=== PATIENT | male | born 1945 | race Caucasian/White ===

== ENCOUNTER 2022-08-25 04:45 | Emergency (ER) | payer OTHER, SELFPAY ==
--- NOTE | 2022-08-25 04:48 | ED_ITS ---
HPI - General Adult General Time Seen by Provider: 04:48 Date Seen: 08/25/22 Chief complaint: Shortness of Breath/Dyspnea Stated complaint: difficulty breathing Time Seen by Provider: 08/25/22 04:47 Source: patient, RN notes reviewed and old records reviewed Mode of arrival: ambulatory Limitations: no limitations History of Present Illness HPI narrative: 76-year-old male who comes in with shortness of breath. Patient has a history of COPD as well as sleep apnea, hypertension, chronic kidney disease. He has a couple months include increased shortness of breath, increased nocturnal dyspnea over the last week or so. Nonproductive cough. No chest pain, no lower extremity swelling, no nausea vomiting, no fevers. Use nebulizer treatments at home. Last summer saw international trade analyst and reports that he was on a ?steroid inhaler which he found help quite a bit but that has not been refilled, also was on prednisone last fall. Related Data Home Medications Medication Instructions Recorded Confirmed aspirin 81 mg tablet,delayed 81 mg PO QDAY 01/13/22 07/15/22 release (Adult Aspirin Regimen) nitroglycerin 0.4 mg sublingual 0.4 mg sublingual Q5M PRN 01/13/22 07/15/22 tablet Previous Rx's Medication Instructions Recorded albuterol sulfate 2.5 mg/3 mL 2.5 mg (3 mL) inhalation Q4H PRN 07/15/22 (0.083 %) solution for nebulization shortness of breath or wheezing #180 mL albuterol sulfate 90 mcg/actuation 2 puff inhalation Q4-6H PRN 07/15/22 aerosol inhaler shortness of breath or wheezing #8.5 grams fluticasone furoate 100 1 inh inhalation DAILY #180 ea 07/15/22 mcg-vilanterol 25 mcg/dose inhalation powder lisinopril 40 mg tablet 40 mg PO DAILY #90 tabs 07/15/22 metoprolol succinate 25 mg 25 mg PO DAILY #90 tabs 07/15/22 tablet,extended release 24 hr simvastatin 40 mg tablet 40 mg PO .Bedtime #90 tabs 07/15/22 terazosin 10 mg capsule 10 mg PO .Bedtime #90 caps 07/15/22 tiotropium bromide 2.5 2 inh inhalation QDAY #12 grams 07/15/22 mcg/actuation mist for inhalation (Spiriva Respimat) fluticasone furoate 100 1 inh inhalation DAILY #60 ea 08/25/22 mcg-vilanterol 25 mcg/dose inhalation powder prednisone 10 mg tablets in a dose See Rx Instructions PO .COMPLEX 08/25/22 pack #21 ea Allergies Allergy/AdvReac Type Severity Reaction Status Date / Time bee venom protein (honey bee) Allergy Mild Anaphylaxis Verified 07/15/22 07:20 atorvastatin Allergy Unknown Verified 07/15/22 07:20 novacaine Allergy Mild Nausea Uncoded 07/15/22 07:20 [facility] Medical History (Updated 08/25/22 @ 06:25 by Marcial Aguayo MD) Cardiomyopathy ?I42.9 - Cardiomyopathy, unspecified (ICD-10) Surgical History (Updated 01/11/22 @ 16:26 by Fracisco Montoya) History of tonsillectomy ?Z90.89 - Acquired absence of other organs (ICD-10) Social History Smoking Status: Former smoker Do you use any of these nicotine containing products: None Second hand tobacco smoke exposure: No How often do you have a drink containing alcohol: never AUDIT-C Alcohol total score: 0 Non-prescribed substance use: denies use Little interest or pleasure in doing things: several days Feeling down, depressed, or hopeless: several days service: No Exam Narrative: Exam Narrative: General: Well-developed and well-nourished, no acute distress Head: Atraumatic and normocephalic Eyes: Pupils are equal reactive, extraocular motions intact, conjunctiva clear ENT: External nose and ears are normal, posterior pharynx without erythema or exudate Neck: No midline cervical tenderness, full spontaneous range of motion the neck, trachea midline, no adenopathy Heart: Regular rate and rhythm no murmurs or thrills Lungs: Increased work of breathing with sensory muscle use, breathless after speaking about a sentence, inspiratory expiratory wheezes bilaterally Abdomen: Soft, nontender, nondistended with active bowel sounds Musculoskeletal: No tenderness, deformity, or edema Neurologic: Awake, alert, and oriented x3, no gross focal neurologic deficits, cranial nerves intact as tested Psych: Mood and affect are appropriate Skin: No rashes Const: Vital Signs, click to edit/add: Vital Signs - 24 hr 08/25/22 04:58 08/25/22 05:27 08/25/22 06:10 Temperature 97.8 F Pulse Rate [Femora l] 92 Pulse Rate [Pulse Oximeter] 84 75 Respiratory Rate 22 22 20 Blood Pressure [Ri ght Upper Arm] 180/111 H 173/86 H 158/88 H Pulse Oximetry 95 94 94 Oxygen Delivery Me thod Room Air Room Air Room Air Course Course Hospital Course: Patient seen examined, prior records reviewed. Patient with history of COPD usually on inhaled steroids but has been off these for quite a while, comes in with several months of increased shortness of breath. On exam here, no hypoxia, some increased work of breathing, inspiratory and expiratory wheezes. No chest pain, no lower extremity swelling. Patient does describe some nocturnal dyspnea but this does not seem to be too orthopnea, however BNP is ordered. EKG is reassuring. Nebulizer treatment and Decadron ordered. Reevaluation(s) Time of Reevaluation #1: 06:18 Reevaluation #1: Labs independently interpreted by me with reassuring venous blood gas, no hypercapnia. CBC with no leukocytosis but does have slight eosinophilia, basic panel reassuring, BNP is normal, troponin negative. Chest x-ray independently interpreted by me demonstrates some streaky perihilar densities on the right but no pneumothorax or acute infiltrate. Patient is stable for discharge with continued nebulizer treatments and will be started on prednisone burst and taper. Will also refill patient's fluticasone inhaler. Time of Reevaluation #2: 06:37 Reevaluation #2: Piece int looks significantly better after treatment in the emergency department, speaking in full sentences although still with mild increased work of breathing but he says that is usual for him. Stable for discharge Vital Signs Vital signs: Initial Vital Signs Pulse Rate 92 08/25/22 04:58 Pulse Rhythm Regular 08/25/22 04:58 Respiratory Rate 22 08/25/22 04:58 Blood Pressure 180/111 H 08/25/22 04:58 Blood Pressure Mean 134 H 08/25/22 04:58 Blood Pressure Position Sitting 08/25/22 04:58 Pulse Oximetry 95 08/25/22 04:58 Oxygen Delivery Method Room Air 08/25/22 04:58 Vital Signs Pulse Rate 92 08/25/22 04:58 Respiratory Rate 22 08/25/22 04:58 Blood Pressure 180/111 H 08/25/22 04:58 Pulse Oximetry 95 08/25/22 04:58 Oxygen Delivery Method Room Air 08/25/22 04:58 Temperature 97.8 F 08/25/22 05:27 Pulse Rate 75 08/25/22 06:10 Respiratory Rate 20 08/25/22 06:10 Blood Pressure 158/88 H 08/25/22 06:10 Pulse Oximetry 94 08/25/22 06:10 Oxygen Delivery Method Room Air 08/25/22 06:10 Medical Decision Making Lab Data Labs: Lab Results 08/25/22 08/25/22 Range/Units 05:26 05:30 WBC 9.23 (4.50-11.00) K/uL RBC 4.60 (4.30-5.90) m/uL Hgb 14.0 (13.5-17.5) gm/dL Hct 42.4 (37.0-53.0) % MCV 92 (80-100) fL MCH 30 (26-34) pg MCHC 33 (32-36) gm/dL RDW Coeff of Kevin 13.7 (11.5-15.5) % Plt Count 270 (140-440) K/uL Neut % (Auto) 64.8 (42.0-72.0) % Lymph % (Auto) 16.1 L (20-44) % [place] % (Auto) 8.9 (0.0-11.0) % Eos % (Auto) 9.4 H (0.0-7.0) % Baso % (Auto) 0.7 (0.0-3.0) % Neut # (Auto) 5.98 (1.7-7.0) K/uL Lymph # (Auto) 1.50 (0.90-2.90) K/uL [place] # (Auto) 0.80 (0.00-0.90) K/UL Eos # (Auto) 0.90 H (0.00-0.50) K/uL Baso # (Auto) 0.06 (0.00-0.30) K/uL VBG pH 7.366 (7.32-7.43) VBG pCO2 46 (40-50) mmHG VBG pO2 38.4 (25-47) mmHG VBG HCO3 27 (21-28) mmol/L Sodium 139 (135-149) mmol/L Potassium 4.4 (3.6-5.1) mmol/L Chloride 107 (96-114) mmol/L Carbon Dioxide 25 (20-32) mmol/L BUN 16 (7-30) mg/dL Creatinine 1.1 (0.5-1.5) mg/dL Estimated Creat Clear 60.48 Estimated GFR 70 ml/min Glucose 102 (60-115) mg/dL Calcium 9.0 (8.4-10.6) mg/dL Magnesium 1.9 (1.5-2.6) mg/dL NT-Pro-B Natriuret Pep 411 pg/mL POC Troponin I 0.01 (0.01-0.04) ng/ml ECG Data Attestation: I personally reviewed and interpreted this ECG as follows: Prior ECG tracings: not available for review Interpretation: Performed at 5:07 p.m. independently interpreted by me demonstrates sinus rhythm with PACs, no acute ST elevations or depressions, normal intervals, normal axis, QTC 444, ID [id number]. No prior for comparison. Discharge Plan Discharge Clinical Impression: Acute exacerbation of chronic obstructive pulmonary disease Patient Disposition: Home, Self-Care Condition: Stable Instructions: COPD (Chronic Obstructive Pulmonary Disease) (ED) Additional Instructions: Take prednisone burst and taper as prescribed Use albuterol inhaler or nebulizer treatment every 2 hours while awake for 24 hours, then every 3 hours while awake for 24 hours, then every 4 hours as needed Restart your fluticasone inhaler if you are not already taking it Follow-up with primary care doctor in 1-2 days and with your international trade analyst as soon as possible Activity Level: Activity as Tolerated Discharge Diet: Regular Prescriptions: New prednisone 10 mg tablets,dose pack See Rx Instructions .ROUTE .COMPLEX Qty: 21 0RF Rx Instructions: Take 40 mg daily for 3 days, then 20 mg daily for 3 days, then 10 mg daily for 3 days, then 5 mg daily for 2 days fluticasone furoate-vilanterol 100-25 mcg/dose blister with device 1 inh inhalation DAILY Qty: 60 0RF No Action aspirin [Adult Aspirin Regimen] 81 mg tablet,delayed release (DR/EC) 81 mg PO QDAY nitroglycerin 0.4 mg tablet, sublingual 0.4 mg sublingual Q5M PRN Rx Instructions: PRN CHEST PAIN albuterol sulfate 90 mcg/actuation HFA aerosol inhaler 2 puff inhalation Q4-6H PRN (Reason: shortness of breath or wheezing) Qty: 8.5 12RF albuterol sulfate 2.5 mg /3 mL (0.083 %) solution for nebulization 2.5 mg inhalation Q4H PRN (Reason: shortness of breath or wheezing) Qty: 180 12RF Spiriva Respimat 2.5 mcg/actuation mist 2 inh inhalation QDAY Qty: 12 4RF fluticasone furoate-vilanterol 100-25 mcg/dose blister with device 1 inh inhalation DAILY Qty: 180 4RF lisinopril 40 mg tablet 40 mg PO DAILY Qty: 90 3RF metoprolol succinate 25 mg tablet extended release 24 hr 25 mg PO DAILY Qty: 90 3RF simvastatin 40 mg tablet 40 mg PO .Bedtime Qty: 90 3RF terazosin 10 mg capsule 10 mg PO .Bedtime Qty: 90 3RF Follow Up/Referrals: Enmanuel Zamora MD [Primary Care Provider] - Stand Alone Forms: [facility] Info Instructions
[2022-08-25 04:58] VITALS: BP 180/111; PULSE 92; RESP 22; O2SAT 95; BMI 21.7
--- NOTE | 2022-08-25 05:07 | CRLHL7_ITS ---
For Patients: As a result of the Cures Act, medical imaging exams and procedure reports are released immediately into your electronic medical record. You may view this report before your referring provider. If you have questions, please contact your health care provider. INDICATION: Dyspnea TECHNIQUE: Chest 1 views. COMPARISON: December 10, 2020 FINDINGS: Cardiovascular and mediastinum: Heart size and vasculature are normal in caliber and appearance. Lungs and pleural spaces: The lungs are hyperinflated with increased interstitial lung markings which may represent nonspecific infectious/inflammatory process or interstitial edema on a background of COPD. No sign of pleural effusion. No pneumothorax. Bones and soft tissues: No significant findings. IMPRESSION: The lungs are hyperinflated with increased interstitial lung markings which may represent nonspecific infectious/inflammatory process or interstitial edema on a background of COPD. Dictated by Fox Trujillo MD @ 08/25/2022 6:45:56 AM (Electronically Signed)
[2022-08-25] MEDS: 0.9 % SODIUM CHLORIDE 500 ML 500 ML 1000 ML IV (05:21)
[2022-08-25] MEDS: dexAMETHasone 10 MG/ML inj IVP (05:24)
[2022-08-25 05:27] VITALS: BP 173/86; PULSE 84; RESP 22; TEMP 36.6; O2SAT 94
[2022-08-25 05:41] LABS: HCO3 VBG 27 mmol/L (21-28); PCO2 VBG 46 mmHG (40-50); PO2 VBG 38.4 mmHG (25-47); pH VBG 7.366 (7.32-7.43)
[2022-08-25 05:43] LABS: Basophils Absolute Auto 0.06 K/uL (0.00-0.30); Basophils Percent Auto 0.7 % (0.0-3.0); Eosinophils Percent Auto 9.4 % (0.0-7.0); Hematocrit 42.4 % (37.0-53.0); Immature Granulocytes Abs Auto 0.01 K/uL (0.00-0.30); Immature Granulocytes Pct Auto 0.1 %; Lymphocytes Percent Auto 16.1 % (20-44); Mean Corpuscular HGB Conc 33 gm/dL (32-36); Mean Corpuscular Hemoglobin 30 pg (26-34); Mean Corpuscular Volume 92 fL (80-100); Monocytes Percent Auto 8.9 % (0.0-11.0); Neutrophils Absolute Auto 5.98 K/uL (1.7-7.0); Neutrophils Percent Auto 64.8 % (42.0-72.0); Platelet Count* 270 K/uL (140-440); RDW Coefficient of Variation % 13.7 % (11.5-15.5); White Blood Count* 9.23 K/uL (4.50-11.00)
[2022-08-25 05:46] LABS: Slide Review Reflex No
[2022-08-25 05:51] LABS: Troponin, Point-of-Care* 0.01 ng/ml (0.01-0.04)
[2022-08-25 05:59] LABS: Chloride* 107 mmol/L (96-114); Potassium* 4.4 mmol/L (3.6-5.1); Sodium* 139 mmol/L (135-149)
[2022-08-25 06:02] LABS: Blood Urea Nitrogen* 16 mg/dL (7-30); Carbon Dioxide* 25 mmol/L (20-32); Creatinine* 1.1 mg/dL (0.5-1.5); Est. Creatinine Clearance* 60.48; Estimated Glomerular Filt Rate 70 ml/min
[2022-08-25 06:03] LABS: Glucose* 102 mg/dL (60-115); Magnesium* 1.9 mg/dL (1.5-2.6)
[2022-08-25 06:10] VITALS: BP 158/88; PULSE 75; RESP 20; O2SAT 94
[2022-08-25 06:12] LABS: NT Pro B Type NatriureticPept* 411 pg/mL
[2022-08-25 07:05] VITALS: BP 145/75; PULSE 70; RESP 22; TEMP 36.6
--- NOTE | 2022-08-25 07:16 | PC.NURSE ---
pt up to walk to lobby, became increasingly short of breath but states its because I had to pee. accompanied patient to parking lot, pt states feeling breathing was easier, unlabored once he was able to use the restroom. Patient able to complete full sentences, denies increased shortness of breath and rr back to baseline for pt. instructed and reviewed initial plan of care, pt adament on going home, states breathing now improved and back to his baseline.
== END 2022-08-25 07:19 | disposition home or self-care (01) ==
PROVIDERS: Emergency Provider Family Medicine; PCP Family Medicine
DX: J44.1 Chronic obstructive pulmonary disease with (acute) exacerbation (principal)
CPT/HCPCS: 36415; 71045; 80048; 82803; 83735; 83880; 84484; 85025; 93005; 96374; 99284; 99285; J1100; J7120

== ENCOUNTER 2022-10-28 09:55 | Outpatient (CLI) | payer OTHER, SELFPAY | END 2022-10-28 09:56 | disposition home or self-care (01) | LOC: NFLDREF 09:58 | PROVIDERS: PCP Family Medicine; Visit Provider Family Medicine | DX: I10 Essential (primary) hypertension (principal); E78.5 Hyperlipidemia, unspecified | CPT/HCPCS: 80048 ==

== ENCOUNTER 2022-11-17 07:16 | Day surgery (SDC) | payer OTHER, SELFPAY ==
[2022-11-17] VITALS (13 sets, daily range): BP systolic 101–161; BP diastolic 53–104; PULSE 59–83; RESP 14–18; TEMP 36.3–37.2; O2SAT 92–96; BMI 19.9
[2022-11-17] MEDS: LACTATED RINGERS 1000 ML 1,000 ML 100 ML IV ×2 (07:35→09:30)
[2022-11-17] MEDS: SODIUM CHLORIDE 0.9 % (FLUSH) 10 ML SYRINGE IVF (08:19)
[2022-11-17] MEDS: CEFAZOLIN 2 GM INJ IVP (09:29)
[2022-11-17] MEDS: BUPIVACAINE 0.5% 30 ML INJECTION (10:29)
--- NOTE | 2022-11-17 10:34 | P.GSOP_ITS ---
Operative Note Pre-op diagnosis: 1. Symptomatic right inguinal hernia. Post-op diagnosis: 1. Small direct and indirect inguinal hernia. Type of Procedure: 1. Open right inguinal hernia repair with mesh. Indications: 77-year-old male was seen in clinic for evaluation of right groin swelling that was present for over 2 years. He stated that he noticed this swelling/bulge intermittently and felt like a water balloon was being pushed on. Over the past 2 years this bulge has been increasing in size, and is mostly prominent with sneezing and coughing. On clinical exam patient had a moderately sized right inguinal hernia that was visible with the patient standing up. This was reducible. Given patient's clinical history and his physical exam as well as his history of COPD, an open right inguinal hernia repair was recommended. The procedure was discussed in detail. The risks associated procedure including infection, bleeding, injury to preperitoneal organs, nerve pain and nerve injury, as well as hernia recurrence were all discussed with the patient, and he agreed to proceed. Procedure Description: After discussing the risks and benefits of the procedure, the patient signed informed consent.? The operative site was marked and the patient was brought to the operating room.? Spinal anesthesia was administered by anesthesia staff. Patient was then placed supine on the operating table. Care was taken to pad the patient's pressure points.?? The patient was then sedated by anesthesia.?? The operative site was then prepped and draped in the usual sterile fashion.? A time-out was then performed. Surgical site was prepped and draped in sterile fashion. Site of the incision was marked with a marking pend. An oblique incision was made just above and medial to the right inguinal ligament. Subcutaneous tissue was dissected to external obliques. Superficial subcutaneous vascular branches were clamped, divided and tied with 3-0 Vicryl ties. Small incision was made through the external oblique aponeurosis with scalpel. I then used Metzenbaum scissors to dissect under external obliques and extend my incision. Mosquito clamps were placed on the edges of external oblique exposing the inguinal floor. The right Ilioinguinal nerve was identified and was going through the plain of dissection. The nerve was divided proximally and distally and a 3 cm segment of it was excised. This was not sent to pathology. I then identified the spermatic cord and the hernia sac. I bluntly dissected subcutaneous tissues in order to place Gisela drain around the cord structures. Cremasteric fibers were peeled off and dissected off the hernia sac and cord structures. The indirect hernia sac was dissected from the spermatic cord bluntly and with cautery. The direct hernia space was also seen and was small. I was able to visualize inferior epigastrics, and those were reflected into the preperitoneal space bluntly. The indirect hernia sac was incised and examined from the inside. No intraabdominal organs were incarcerated in the hernia sac. A stitch using 2-0 Vicryl was placed near the base of the hernia sac through the sac and the hernia sac tied off. Hernia sac was then excised and not sent to pathology. The cut edge of the hernia sac was then oversewn with a running Vicryl suture. This was then pushed into preperitoneal space through the internal ring. Surgical field was examined for bleeding and hemostasis was achieved with cautery and Vicryl ties. A Bard mesh onlay was also used for hernia repair. The mesh onlay was sutured in place with interrupted 0-0 Neurolon sutures to the conjoint tendon medially and shelving edge laterally, pubic tubercle inferiorly. Simple interrupted sutures were placed using 0-0 Neurolon at the base of internal inguinal ring making it only large enough to fit a tip of one finger through. Spermatic cord was placed back into scrotum. Gisela drain was removed. External oblique aponeurosis was closed with a running 3-0 Vicryl. Local anesthetic was injected into subcutaneous tissues. Sai's fascia and subcutaneous tissue was re- approximated with interrupted Vicryl stitches. Skin incision was closed with 4-0 Monocryl subcuticular stitch. Steri strips and sterile dressing were applied over incision. All counts were correct at the end of the case. Patient tolerated this procedure well and was transferred to PACU in stable condition. Findings: Small indirect and direct hernias repaired with mesh. Implants: Bard mesh. Anesthesia: local and spinal Surgeon: Shalini Negron MD Estimated blood loss (mL): 5 Condition: stable Disposition: PACU Date of procedure: 11/17/22
--- NOTE | 2022-11-17 11:27 | W.ANESCHARGE ---
Anesthesia Charges Start Date/Time Anesthesia Start Date: 11/17/22 Anesthesia Start Time: 09:12 Stop Date/Time Anesthesia Stop Date: 11/17/22 Anesthesia Stop Time: 10:43 Summary Extremes of Age - Over 70 or under 1: MDA
[2022-11-17] MEDS: HYDROCODONE-ACETAMIN 5-325 MG 1 TAB PO (12:05)
--- NOTE | 2022-11-25 08:08 | W.ANESCHARGE ---
Anesthesia Charges Start Date/Time Anesthesia Start Date: 11/17/22 Anesthesia Start Time: 09:12 Stop Date/Time Anesthesia Stop Date: 11/17/22 Anesthesia Stop Time: 10:43
== END 2022-11-17 12:47 | disposition home or self-care (01) ==
PROVIDERS: PCP Family Medicine; Visit Provider Surgery
PROC: (CPT 49505; principal; 2022-11-17 08:45)
DX: K40.90 Unilateral inguinal hernia, without obstruction or gangrene, not specified as recurrent (principal)
CPT/HCPCS: 49505; 00830; 99100; A9270; C1781; J0665; J0690; J1100; J2250; J2405; J2704; J3010; J7120

== ENCOUNTER 2022-12-02 12:45 | Outpatient (CLI) | payer OTHER, SELFPAY ==
--- NOTE | 2022-12-02 13:00 | CRLHL7_ITS ---
For Patients: As a result of the Century Cures Act, medical imaging exams and procedure reports are released immediately into your electronic medical record. You may view this report before your referring provider. If you have questions, please contact your health care provider. INDICATION: Shortness of breath status post hernia surgery on November 17. Tachycardia. TECHNIQUE: CT chest PE was acquired with 95 cc Isovue 370 intravenous contrast. COMPARISON: None. FINDINGS: Heart and vasculature: Contrast opacification of the pulmonary arterial tree is adequate. No sign of pulmonary embolism. Thoracic aorta is normal in caliber with mild atherosclerotic calcification. Trace pericardial fluid. Lungs and pleural: Trace right pleural effusion. Biapical pleural parenchymal scarring. Mild centrilobular emphysema with some subpleural nodularity. Bronchial wall thickening with interlobular septal thickening and some consolidation extending along the bronchi involving the right middle lobe, right lower lobe and to a lesser extent the right upper lobe. Left lung lobulated lesion in the left upper lobe measuring 8 millimeters (series 6, image 76). Smaller subpleural nodules within the left lung. Lymph nodes/mediastinum: Right hilar lymphadenopathy measuring 12 millimeters. Calcified left hilar lymph nodes. Chest wall: No masses. Upper abdomen: Complex left renal lesion measuring 20 millimeters with peripheral hyperdensity, likely rim calcification. Bones: Unremarkable for age. IMPRESSION: 1. No evidence of pulmonary embolus. 2. Bronchial wall thickening with interlobular septal thickening and consolidation along the bronchi within the right lung suggestive of a bronchopneumonia. 3. Trace right pleural effusion. 4. Multiple pulmonary nodules with a lobulated lesion within the left upper lobe measuring 8 millimeters. In the setting of an apparent infection, this can represent part of the infectious process although other etiologies are not excluded. Suggest follow-up chest CT in 3 months to reassess and further management can be based on the follow-up exam. 5. Complex left renal lesion measuring 20 millimeters. Suggest follow-up dedicated renal MRI or CT for further characterization. Please note that all CT scans at this facility use dose modulation, iterative reconstruction, and/or weight-based dosing when appropriate to reduce radiation dose to as low as reasonably achievable. Dictated by Edgardo Hope MD @ 12/02/2022 1:56:27 PM (Electronically Signed)
== END 2022-12-02 12:46 | disposition home or self-care (01) ==
PROVIDERS: PCP Family Medicine; Visit Provider Surgery
DX: R06.02 Shortness of breath (principal); J18.0 Bronchopneumonia, unspecified organism; J90 Pleural effusion, not elsewhere classified; R91.8 Other nonspecific abnormal finding of lung field; N28.9 Disorder of kidney and ureter, unspecified
CPT/HCPCS: 71275; Q9967

== ENCOUNTER 2022-12-10 09:36 | Outpatient (CLI) | payer OTHER, SELFPAY ==
--- NOTE | 2022-12-10 10:00 | CRLHL7_ITS ---
For Patients: As a result of the Century Cures Act, medical imaging exams and procedure reports are released immediately into your electronic medical record. You may view this report before your referring provider. If you have questions, please contact your health care provider. Indication: Left renal mass Technique: Pre and post-contrast CT abdomen performed. 69 cc Isovue 370 intravenous contrast administered. Postcontrast images performed in the arterial and portal venous phases. Please note that all CT scans at this facility use dose modulation, iterative reconstruction, and/or weight-based dosing when appropriate to reduce radiation dose to as low as reasonably achievable. Comparison: CT chest 12/02/2022, CT abdomen renal study 11/01/2018 Findings: Noncontrast enhanced images demonstrate a calcified left renal mass. Vascular calcifications noted. Calcified splenic granuloma. Chronic coarse calcification inferior to the pancreas. Postcontrast enhanced images demonstrate a small right pleural effusion. Diffuse reticular thickening within the visualized right lower lung noted. Mild curvilinear scarring within the periphery of the left lung base. No free intraperitoneal air. No intrahepatic mass. No calcified gallstones. No splenomegaly. No pancreatic lesion. Adrenal glands normal. Small simple cyst arises from the periphery of the right kidney measuring 1 cm. Dense left renal lesion is unchanged compared to the prior study and measures 2.2 cm, previously measuring 2.2 cm. No hydronephrosis. Atherosclerotic changes. No dissection. No adenopathy. Chronic wedging L4. Additional small cyst lower pole right kidney measuring 1 cm. Incidental lipoma within the right upper rectus musculature. Impression: Chronic calcified left renal mass, unchanged from 2019, benign. No further follow-up indicated. Right pleural effusion with diffuse reticular densities in the right lower lung consistent with edema or infection. Follow-up indicated. Please note that all CT scans at this facility use dose modulation, iterative reconstruction, and/or weight-based dosing when appropriate to reduce radiation dose to as low as reasonably achievable. Dictated by Indio Ann MD @ 12/11/2022 2:50:14 PM (Electronically Signed)
[2022-12-10 10:14] LABS: Estimated Glomerular Filt Rate 78 ml/min
== END 2022-12-10 09:37 | disposition home or self-care (01) ==
LOC: CT 09:37
PROVIDERS: PCP Family Medicine; Visit Provider Family Medicine
DX: N28.89 Other specified disorders of kidney and ureter (principal); J90 Pleural effusion, not elsewhere classified
CPT/HCPCS: 36415; 74170; 82565; Q9967

== ENCOUNTER 2023-01-22 15:07 | Emergency (ER) | payer OTHER, SELFPAY ==
[2023-01-22] VITALS (8 sets, daily range): BP systolic 136–158; BP diastolic 79–104; PULSE 85–107; RESP 18–22; TEMP 36.8; O2SAT 92–95; BMI 19.7
--- NOTE | 2023-01-22 16:49 | CRLHL7_ITS ---
For Patients: As a result of the Century Cures Act, medical imaging exams and procedure reports are released immediately into your electronic medical record. You may view this report before your referring provider. If you have questions, please contact your health care provider. INDICATION: Shortness of breath. COMPARISON: 08/25/2022. FINDINGS/IMPRESSION: Chest, two views. Pulmonary hyperexpansion consistent with chronic obstructive pulmonary disease is again seen. There is a new moderate to large right pleural effusion. Interstitial thickening is noted in the lung apices, greatest on the right. There is probable compressive atelectasis in the lower right lung, which is largely obscured by pleural fluid. Right heart border is obscured but the heart does not appear grossly enlarged. Included bones are unremarkable aside from spinal degenerative changes. Dictated by Julio Ko MD @ 01/22/2023 6:25:27 PM Dictated by: Julio Ko MD @ 01/22/2023 18:25:40 (Electronically Signed)
--- NOTE | 2023-01-22 16:52 | ED_ITS ---
HPI - SOB/Dyspnea General Date Seen: 01/22/23 Chief Complaint: Shortness of Breath/Dyspnea Stated Complaint: Short of breath Time Seen by Provider: 01/22/23 16:04 Source: patient Mode of arrival: ambulatory Limitations: no limitations History of Present Illness HPI Narrative: Patient is a 77-year-old male with a history of chronic kidney disease, COPD who is a current smoker presenting to emergency department for shortness of breath. He states he has been having chronic shortness of breath for few years now but feels like things have gotten worse over the past couple weeks. He states he will wake up each morning he checks oxygen of being in a low to mid 80s on taking a while to get back up to 90. States he has been using his home inhalers with some improvement in his symptoms place not feel like he gets all the way better. He says he has quit smoking 2 weeks ago. In the past when he has had symptoms like this he has had associated pneumonia. Denies fevers, chills, chest pain, lightheadedness, dizziness, abdominal pain, numbness. States he feels like it is his COPD acting up. Related Data Home Medications Medication Instructions Recorded Confirmed aspirin 81 mg tablet,delayed 81 mg PO QDAY 01/13/22 01/22/23 release (Adult Aspirin Regimen) nitroglycerin 0.4 mg sublingual 0.4 mg sublingual Q5M PRN 01/13/22 01/22/23 tablet prednisone 20 mg tablet 40 mg PO QDAY PRN 12/02/22 01/22/23 Previous Rx's Medication Instructions Recorded albuterol sulfate 2.5 mg/3 mL 2.5 mg (3 mL) inhalation Q4H PRN 07/15/22 (0.083 %) solution for nebulization shortness of breath or wheezing #180 mL albuterol sulfate 90 mcg/actuation 2 puff inhalation Q4-6H PRN 07/15/22 aerosol inhaler shortness of breath or wheezing #8.5 grams lisinopril 40 mg tablet 40 mg PO DAILY #90 tabs 07/15/22 metoprolol succinate 25 mg 25 mg PO DAILY #90 tabs 07/15/22 tablet,extended release 24 hr simvastatin 40 mg tablet 40 mg PO .Bedtime #90 tabs 07/15/22 terazosin 10 mg capsule 10 mg PO .Bedtime #90 caps 07/15/22 tiotropium bromide 2.5 2 inh inhalation QDAY #12 grams 07/15/22 mcg/actuation mist for inhalation (Spiriva Respimat) fluticasone furoate 100 1 inh inhalation DAILY #60 ea 08/25/22 mcg-vilanterol 25 mcg/dose inhalation powder Allergies Allergy/AdvReac Type Severity Reaction Status Date / Time bee venom protein (honey bee) Allergy Mild Anaphylaxis Verified 01/22/23 15:20 procaine [From Novocain] Allergy Mild Nausea Verified 01/22/23 15:20 atorvastatin AdvReac Mild Muscle Pain Verified 01/22/23 15:20 Review of Systems Status of ROS: Reports: 10 or more systems reviewed and unremarkable except as noted in History and below PFSH PFS Medical History Cardiomyopathy ?I42.9 - Cardiomyopathy, unspecified (ICD-10) Surgical History S/P right inguinal hernia repair ?Z98.890 - Other specified postprocedural states (ICD-10) ?Z87.19 - Personal history of other diseases of the digestive system (ICD-10) History of tonsillectomy ?Z90.89 - Acquired absence of other organs (ICD-10) Social History Narrative: Patient continues to smoke but 1 pack of cigarettes may last him 2 weeks. Denies drinking alcohol. Smoking Status: Former smoker Do you use any of these nicotine containing products: None Second hand tobacco smoke exposure: No How often do you have a drink containing alcohol: never AUDIT-C Alcohol total score: 0 Non-prescribed substance use: denies use Little interest or pleasure in doing things: several days Feeling down, depressed, or hopeless: several days service: No Exam Narrative: Exam Narrative: Const: Well-nourished, Well-developed, in mild distress Eyes: PERRL, no conjunctival injection, and symmetrical lids HENT: Atraumatic external nose and ears. Moist mucous membranes. Neck: Symmetric, trachea midline, No thyromegaly. CVS: RRR, No murmurs or gallops. Peripheral pulses 2+ and equal in all extremities RESP: Unlabored respiratory effort. Mild wheezing in lower lung bradley GI: Nontender/Nondistended, No rebound or guarding. MSK:Extremities w/o deformity, Normal Active ROM Skin: Warm, Dry. No rashes or lesions. Neuro: Normal Muscle tone, No focal neurological deficits. Psych: Awake, Alert, & Oriented x3. Appropriate mood and affect. Const: Vital Signs, click to edit/add: Vital Signs - 24 hr 01/22/23 15:12 01/22/23 16:07 01/22/23 16:09 Temperature 98.3 F Pulse Rate 87 Pulse Rate [Pulse Oximeter] 107 H 90 Respiratory Rate 20 22 Blood Pressure 155/101 H Blood Pressure [Ri ght Upper Arm] 136/81 155/104 H Pulse Oximetry 92 94 95 Oxygen Delivery Me thod Room Air Room Air 01/22/23 16:31 01/22/23 17:31 01/22/23 18:01 Temperature Pulse Rate 85 94 89 Pulse Rate [Pulse Oximeter] Respiratory Rate Blood Pressure 145/88 H 154/95 H 151/79 H Blood Pressure [Ri ght Upper Arm] Pulse Oximetry 93 93 93 Oxygen Delivery Me thod 01/22/23 19:02 01/22/23 19:31 Temperature Pulse Rate 90 93 Pulse Rate [Pulse Oximeter] Respiratory Rate 18 18 Blood Pressure 153/94 H 158/93 H Blood Pressure [Ri ght Upper Arm] Pulse Oximetry 93 94 Oxygen Delivery Me thod Course Vital Signs Vital signs: Initial Vital Signs Temperature 98.3 F 01/22/23 15:12 Temperature Source Temporal Artery Scan 01/22/23 15:12 Pulse Rate 107 H 01/22/23 15:12 Respiratory Rate 20 01/22/23 15:12 Blood Pressure 136/81 01/22/23 15:12 Blood Pressure Mean 99 01/22/23 15:12 Blood Pressure Position Sitting 01/22/23 15:12 Pulse Oximetry 92 01/22/23 15:12 Oxygen Delivery Method Room Air 01/22/23 15:12 Vital Signs Temperature 98.3 F 01/22/23 15:12 Pulse Rate 107 H 01/22/23 15:12 Respiratory Rate 20 01/22/23 15:12 Blood Pressure 136/81 01/22/23 15:12 Pulse Oximetry 92 01/22/23 15:12 Oxygen Delivery Method Room Air 01/22/23 15:12 Temperature 98.3 F 01/22/23 15:12 Pulse Rate 93 01/22/23 19:31 Respiratory Rate 18 01/22/23 19:31 Blood Pressure 158/93 H 01/22/23 19:31 Pulse Oximetry 94 01/22/23 19:31 Oxygen Delivery Method Room Air 01/22/23 16:07 Medications Administered Medications: Discontinued Medications Generic Name Dose Route Start Last Admin Trade Name Marbin PRN Reason Stop Dose Admin Albuterol/Ipratropium 1 neb 01/22/23 16:48 01/22/23 17:03 Iprat-Albut 0.5-2.5 Mg/3 Ml Neb IH 01/22/23 16:49 1 neb ONCE ONE Administration MDM - SOB/Dyspnea MDM Narrative Medical decision making narrative: Patient is a 27-year-old male presenting respiratory shortness of breath. He states he feels like his COPD was concerned he could of associated pneumonia. Has been using home inhalers with minimal improvement in his symptoms. We will do cardiac workup temperature is no other cardiac issues he will also do a chest x-ray to look for signs of pneumonia. He will be given a DuoNeb treatment and Solu-Medrol for his COPD. Cbc, CMP, troponin all showed no concerning abnormalities. He has COVID influenza negative. He states he feels much better after his breathing treatment and Solu-Medrol. Lungs no longer have any wheezing on repeat exam. Chest x-ray showed a new right moderate to large pleural effusion. Unsure what this is from but he is not appear to be symptomatic from it at this time. We will do a CT scan to better evaluated to make sure there is no other concerning findings. CT scan shows this growing pleural effusion compared to 7 weeks ago. Is also concerned for malignancy. Patient is otherwise satting well on room air after breathing treatment and states he feels good enough to be discharged home. He says he has a follow-up appointment with his primary care provider on Wednesday. I spoke to Dr. Arrieta she states that if we want a outpatient thoracentesis he needs a follow-up with his primary care provider 1st with aching button and the procedure paperwork. I informed the patient of this and they are agreeable to this plan. I will discharge him home with azithromycin and prednisone. He will get them from [facility]. Lab Data Labs: Lab Results 01/22/23 01/22/23 Range/Units 17:00 17:25 WBC 10.09 (4.50-11.00) K/uL RBC 4.19 L (4.30-5.90) m/uL Hgb 12.6 L (13.5-17.5) gm/dL Hct 38.9 (37.0-53.0) % MCV 93 (80-100) fL MCH 30 (26-34) pg MCHC 32 (32-36) gm/dL RDW Coeff of Kevin 13.8 (11.5-15.5) % Plt Count 333 (140-440) K/uL Neut % (Auto) 80.7 H (42.0-72.0) % Lymph % (Auto) 10.1 L (20-44) % [place] % (Auto) 8.4 (0.0-11.0) % Eos % (Auto) 0.5 (0.0-7.0) % Baso % (Auto) 0.2 (0.0-3.0) % Neut # (Auto) 8.10 H (1.7-7.0) K/uL Lymph # (Auto) 1.00 (0.90-2.90) K/uL [place] # (Auto) 0.80 (0.00-0.90) K/UL Eos # (Auto) 0.05 (0.00-0.50) K/uL Baso # (Auto) 0.02 (0.00-0.30) K/uL Abs Immat Gran (auto) 0.01 (0.00-0.30) K/uL Imm/Tot Granulo (auto) 0.1 % Sodium 136 (135-149) mmol/L Potassium 4.5 (3.6-5.1) mmol/L Chloride 103 (96-114) mmol/L Carbon Dioxide 27 (20-32) mmol/L Anion Gap 6 L (7-15) mEq/L BUN 14 (7-30) mg/dL Creatinine 0.9 (0.5-1.5) mg/dL Estimated Creat Clear 59.38 Estimated GFR 89 ml/min Glucose 105 (60-115) mg/dL Calcium 8.3 L (8.4-10.6) mg/dL Total Bilirubin 0.5 (0.1-1.5) mg/dL AST 25 (12-35) U/L ALT 14 (4-50) U/L Alkaline Phosphatase 117 (40-150) U/L Troponin I < 0.01 L (0.01-0.04) ng/mL Total Protein 6.1 (6.0-8.3) g/dL Albumin 3.6 (3.3-5.0) g/dL SARS-CoV-2 (PCR) Negative SARS-CoV-2 (Negative) Influenza Type A (PCR) Negative PCR FLU A (Negative) Influenza Type B (PCR) Negative PCR FLU B (Negative) Imaging Data Chest x-ray: Radiologist's impression: Pulmonary hyperexpansion consistent with chronic obstructive pulmonary disease is again seen. There is a new moderate to large right pleural effusion. Interstitial thickening is noted in the lung apices, greatest on the right. There is probable compressive atelectasis in the lower right lung, which is largely obscured by pleural fluid. Right heart border is obscured but the heart does not appear grossly enlarged. Included bones are unremarkable aside from spinal degenerative changes. Dictated by Julio Ko MD @ 01/22/2023 6:25:27 PM ECG Data Attestation: I personally reviewed and interpreted this ECG as follows: Prior ECG tracings: available for review Interpretation: EKG shows normal sinus rhythm with a rate of 87 beats per minute, normal intervals, normal axis, no ST or T-wave abnormalities. Appears similar to previous EKG on file Discharge Plan Discharge Clinical Impression: Pleural effusion, COPD exacerbation Patient Disposition: Home, Self-Care Condition: Improved Instructions: Pleural Effusion (DC) Additional Instructions: Take the azithromycin and prednisone as directed. Follow up with your PCP on Wednesday. Inform them that you have a pleural effusion and need a referral to see General Surgery for a thoracentesis (drainage of the fluid in your lung). Retrun for new or worsening symptoms. Prescriptions: No Action aspirin [Adult Aspirin Regimen] 81 mg tablet,delayed release (DR/EC) 81 mg PO QDAY nitroglycerin 0.4 mg tablet, sublingual 0.4 mg sublingual Q5M PRN Rx Instructions: PRN CHEST PAIN prednisone 20 mg tablet 40 mg PO QDAY PRN Hold Instructions: per pt albuterol sulfate 90 mcg/actuation HFA aerosol inhaler 2 puff inhalation Q4-6H PRN (Reason: shortness of breath or wheezing) Qty: 8.5 12RF albuterol sulfate 2.5 mg /3 mL (0.083 %) solution for nebulization 2.5 mg inhalation Q4H PRN (Reason: shortness of breath or wheezing) Qty: 180 12RF Spiriva Respimat 2.5 mcg/actuation mist 2 inh inhalation QDAY Qty: 12 4RF lisinopril 40 mg tablet 40 mg PO DAILY Qty: 90 3RF metoprolol succinate 25 mg tablet extended release 24 hr 25 mg PO DAILY Qty: 90 3RF simvastatin 40 mg tablet 40 mg PO .Bedtime Qty: 90 3RF terazosin 10 mg capsule 10 mg PO .Bedtime Qty: 90 3RF fluticasone furoate-vilanterol 100-25 mcg/dose blister with device 1 inh inhalation DAILY Qty: 60 0RF Follow Up/Referrals: Enmanuel Zamora MD [Primary Care Provider] - Stand Alone Forms: [employer] Info Instructions
[2023-01-22] MEDS: IPRAT-ALBUT 0.5-2.5 MG/3 ML NEB 1 NEB IH (17:03)
[2023-01-22 17:15] LABS: Basophils Absolute Auto 0.02 K/uL (0.00-0.30); Basophils Percent Auto 0.2 % (0.0-3.0); Eosinophils Absolute Auto 0.05 K/uL (0.00-0.50); Eosinophils Percent Auto 0.5 % (0.0-7.0); Hematocrit 38.9 % (37.0-53.0); Hemoglobin* 12.6 gm/dL (13.5-17.5); Immature Granulocytes Abs Auto 0.01 K/uL (0.00-0.30); Immature Granulocytes Pct Auto 0.1 %; Lymphocytes Percent Auto 10.1 % (20-44); Mean Corpuscular HGB Conc 32 gm/dL (32-36); Mean Corpuscular Hemoglobin 30 pg (26-34); Mean Corpuscular Volume 93 fL (80-100); Monocytes Percent Auto 8.4 % (0.0-11.0); Neutrophils Percent Auto 80.7 % (42.0-72.0); Platelet Count* 333 K/uL (140-440); RDW Coefficient of Variation % 13.8 % (11.5-15.5); Red Blood Count 4.19 m/uL (4.30-5.90); White Blood Count* 10.09 K/uL (4.50-11.00)
[2023-01-22 17:17] LABS: Slide Review Reflex No
[2023-01-22 17:29] LABS: Albumin* 3.6 g/dL (3.3-5.0); Chloride* 103 mmol/L (96-114); Sodium* 136 mmol/L (135-149)
[2023-01-22 17:30] LABS: Potassium* 4.5 mmol/L (3.6-5.1)
[2023-01-22 17:32] LABS: Alkaline Phosphatase* 117 U/L (40-150); Anion Gap 6 mEq/L (7-15); Aspartate Amino Transferase* 25 U/L (12-35); Bilirubin Total* 0.5 mg/dL (0.1-1.5); Blood Urea Nitrogen* 14 mg/dL (7-30); Carbon Dioxide* 27 mmol/L (20-32); Creatinine* 0.9 mg/dL (0.5-1.5); Est. Creatinine Clearance* 59.38; Estimated Glomerular Filt Rate 89 ml/min; Total Protein* 6.1 g/dL (6.0-8.3)
[2023-01-22 17:33] LABS: Alanine Aminotransferase* 14 U/L (4-50); Calcium* 8.3 mg/dL (8.4-10.6); Glucose* 105 mg/dL (60-115)
[2023-01-22 17:45] LABS: Troponin I* < 0.01 ng/mL (0.01-0.04)
[2023-01-22 18:08] LABS: PCR FLU A Negative PCR FLU A (Negative); PCR FLU B Negative PCR FLU B (Negative)
[2023-01-22 18:19] LABS: SARS PCR* Negative SARS-CoV-2 (Negative)
--- NOTE | 2023-01-22 18:26 | CRLHL7_ITS ---
For Patients: As a result of the Century Cures Act, medical imaging exams and procedure reports are released immediately into your electronic medical record. You may view this report before your referring provider. If you have questions, please contact your health care provider. INDICATION: Shortness of breath TECHNIQUE: CT chest without contrast. COMPARISON: CT 12/02/2022 FINDINGS: Cardiovascular structures: Heart size is normal. Thoracic aorta and main pulmonary artery are normal in caliber. Mediastinum and kings[place]/lung: There is right hilar mass/adenopathy which appears increased from the prior study there is now collapse of the right middle lobe and majority of the right lower lobe with minimal aeration of the posterior right lower lobe. There is interlobular septal thickening of the right upper lobe and lower lobe. Diffuse scattered predominates small nodules throughout both lungs. Emphysema. Pleura and pericardium: Small to moderate right effusion. Small pericardial effusion. Chest wall and axilla: No mass or adenopathy. Bones: No significant findings. Upper abdomen: Complex partially calcified left mid renal lesion incompletely assessed on this study IMPRESSION: 1. Right hilar mass/adenopathy increased from the prior study. There is now right middle lobe collapse and collapse of the majority of the right lower lobe as well. Small to moderate right effusion. Findings are suspicious for malignancy pulmonary consultation recommended. Interlobular septal thickening in the right upper and right lower lobe. This could be related to pulmonary edema or lymphangitic spread. Diffuse predominantly small nodules within both lungs. Please note that all CT scans at this facility use dose modulation, iterative reconstruction, and/or weight-based dosing when appropriate to reduce radiation dose to as low as reasonably achievable. Dictated by Rachel Aceves MD @ 01/22/2023 8:03:49 PM (Electronically Signed)
--- NOTE | 2023-01-22 20:25 | PC.NURSE ---
patient DC accompanied by friend, no questions about DC instructions.
== END 2023-01-22 20:27 | disposition home or self-care (01) ==
PROVIDERS: Emergency Provider Student in an Organized Health Care Education/Training Program; PCP Family Medicine
DX: J90 Pleural effusion, not elsewhere classified (principal); J44.1 Chronic obstructive pulmonary disease with (acute) exacerbation
CPT/HCPCS: 36415; 71046; 71250; 80053; 84484; 85025; 87631; 93005; 94640; 99283; 99284; 99285

== ENCOUNTER 2023-01-27 15:29 | Observation (INO) | payer OTHER, SELFPAY ==
[2023-01-27] VITALS (8 sets, daily range): BP systolic 141–162; BP diastolic 80–89; PULSE 93–100; RESP 18–28; TEMP 36.8–37.1; O2SAT 90–93; BMI 19.1; BMI 18.5
--- NOTE | 2023-01-27 16:32 | CRLHL7_ITS ---
For Patients: As a result of the Cures Act, medical imaging exams and procedure reports are released immediately into your electronic medical record. You may view this report before your referring provider. If you have questions, please contact your health care provider. INDICATION: Chest pain. TECHNIQUE: Chest radiographs, two views. COMPARISON: CT chest 01/22/2023, chest radiographs 01/22/2023. FINDINGS: Lines/Tubes/Devices: None. Mediastinum: Stable cardiac silhouette. Lungs: Hyperinflated lungs with flattening of the left hemidiaphragm, compatible with COPD. Emphysematous changes. Linear bandlike opacifications of the lung bases likely due to subsegmental atelectasis and/or scarring. Increase interstitial lung markings with Sunshine B lines. No definite focal consolidation. Compressive atelectasis of the right lung base. Airways: The trachea remains midline. Pleura: Large right pleural effusion, similar to the prior radiographs from 01/22/2023. no left pleural effusion. No pneumothorax. Bones: No acute osseous abnormalities. Degenerative changes of the thoracic spine. Upper Abdomen: Unremarkable. IMPRESSION: Large right pleural effusion with compressive atelectasis of the right lung base, grossly unchanged. A superimposed pneumonia should be clinically excluded. Stable examination. Dictated by Alex Mckeon MD @ 01/27/2023 6:21:38 PM (Electronically Signed)
[2023-01-27] MEDS: IPRAT-ALBUT 0.5-2.5 MG/3 ML NEB 1 NEB IH (16:48)
--- NOTE | 2023-01-27 16:50 | ED_ITS ---
HPI - General Adult General Date Seen: 01/27/23 Chief complaint: Shortness of Breath/Dyspnea Stated complaint: Low O2 Time Seen by Provider: 01/27/23 16:03 History of Present Illness HPI narrative: Pleasant 77-year-old male with a past medical history including COPD (has a home pulse oximeter and baseline oxygen stent to be in the mid 80s every morning, but not yet on home oxygen therapy), former tobacco use) started at age 14, quit smoking a few months ago), right-sided pleural effusion, and recent COPD exacerbation presents to the ER today, accompanied by his grandson, for evaluation of worsening shortness of breath. He has had some shortness of breath and cough for the past couple of weeks. He was seen here in the ER last week for shortness of breath. Workup at that time included a negative COVID/influenza swab, negative cardiac workup. He was t reated with bronchodilators in the ER with marked improvement in his breathing. He was discharged home with a 5 day course of Zithromax and prednisone for possible COPD exacerbation. Also during his ER workup last week chest x-ray showed a moderate size right pleural effusion. Chest CT confirmed the effusion also showed a suspicious mass in the right lung. He saw primary care on Wednesday for this. He has been set up to see his insole bottom filler, Dr. Lina Bolden through the [facility] system, and has an appointment to with her tomorrow. He is also scheduled to see our surgeon here in [place], Dr. Tejada, on February 09 to arrange a thoracentesis for the pleural effusion. He says he was breathing reasonably well we are all on the steroids and antibiotics. He has been having trouble sleeping at night because he when he is flat in his bed he has some discomfort in his chest. He notes that he normally likes to sleep on his back. He has been able to sleep on his right side for se veral weeks. He had been able sleep on his left side but no longer can do that either. He also notes that this morning his oxygen levels were lower than his baseline (in the low 80s rather than the mid 80s) in took longer to rebound up to 89. He is very short of breath with any exertion. For instance, walking in from the car made him very short of breath and wheezy. Now that he is sitting up in his hospital bed and resting his breathing is back to baseline and his sats are 89% on room air. He does have Spiriva, Breo, and albuterol that he uses for COPD. Last nebulizer was approximately 2:00 p.m. today. It had marginal improvement. He is not having any chest pain now but did have chest pain last night while he was trying to sleep. Related Data Home Medications Medication Instructions Recorded Confirmed aspirin 81 mg tablet,delayed 81 mg PO QDAY 01/13/22 01/27/23 release (Adult Aspirin Regimen) nitroglycerin 0.4 mg sublingual 0.4 mg sublingual Q5M PRN 01/13/22 01/27/23 tablet prednisone 20 mg tablet 40 mg PO QDAY PRN 12/02/22 01/27/23 azithromycin 250 mg tablet mg PO 01/25/23 01/25/23 Previous Rx's Medication Instructions Recorded albuterol sulfate 2.5 mg/3 mL 2.5 mg (3 mL) inhalation Q4H PRN 07/15/22 (0.083 %) solution for nebulization shortness of breath or wheezing #180 mL albuterol sulfate 90 mcg/actuation 2 puff inhalation Q4-6H PRN 07/15/22 aerosol inhaler shortness of breath or wheezing #8.5 grams lisinopril 40 mg tablet 40 mg PO DAILY #90 tabs 07/15/22 metoprolol succinate 25 mg 25 mg PO DAILY #90 tabs 07/15/22 tablet,extended release 24 hr simvastatin 40 mg tablet 40 mg PO .Bedtime #90 tabs 07/15/22 terazosin 10 mg capsule 10 mg PO .Bedtime #90 caps 07/15/22 tiotropium bromide 2.5 2 inh inhalation QDAY #12 grams 07/15/22 mcg/actuation mist for inhalation (Spiriva Respimat) fluticasone furoate 100 1 inh inhalation DAILY #60 ea 08/25/22 mcg-vilanterol 25 mcg/dose inhalation powder Allergies Allergy/AdvReac Type Severity Reaction Status Date / Time bee venom protein (honey bee) Allergy Mild Anaphylaxis Verified 01/27/23 15:41 procaine [From Novocain] Allergy Mild Nausea Verified 01/27/23 15:41 atorvastatin AdvReac Mild Muscle Pain Verified 01/27/23 15:41 [facility] Medical History Cardiomyopathy ?I42.9 - Cardiomyopathy, unspecified (ICD-10) Surgical History S/P right inguinal hernia repair ?Z98.890 - Other specified postprocedural states (ICD-10) ?Z87.19 - Personal history of other diseases of the digestive system (ICD-10) History of tonsillectomy ?Z90.89 - Acquired absence of other organs (ICD-10) Social History Narrative: Patient continues to smoke but 1 pack of cigarettes may last him 2 weeks. Denies drinking alcohol. Smoking Status: Former smoker Do you use any of these nicotine containing products: None Second hand tobacco smoke exposure: No How often do you have a drink containing alcohol: never AUDIT-C Alcohol total score: 0 Non-prescribed substance use: denies use Little interest or pleasure in doing things: several days Feeling down, depressed, or hopeless: several days service: No Exam 2 Narrative: Exam Narrative: Constitutional: Appears well-developed and well-nourished. Alert. Conversant, and very polite. Able to speak full sentences. Oxygen sats are 89% on room air while resting in bed in came up to 95 with 2 L nasal cannula. Non toxic. HENT: Head: Atraumatic. Nose: Nose normal. Mouth/Throat: Oral mucosa is clear and moist. no trismus. Pharynx normal. Tonsils symmetric. No tonsillar enlargement, erythema, or exudate. Eyes: Conjunctivae normal. EOM normal. Pupils equal, round, and reactive to light. No scleral icterus. Neck: Normal range of motion. Neck supple. No tracheal deviation present. Cardiovascular: Normal rate, regular rhythm. No gallop. No friction rub. No murmur heard. Symmetric radial artery pulses Pulmonary/Chest: Effort normal. No stridor. No respiratory distress. Few wheezes when he has a small coughing spell but otherwise fairly good aeration in both apices. Very diminished lung sounds in the right lower lung field. He does have aeration on the left lower field. No wheezes. No rales. No rhonchi . No tenderness. Abdominal: Soft.No distension. No mass. No tenderness. No rebound. No guarding. Musculoskeletal: RUE: Normal range of motion. No tenderness. No deformity LUE: Normal range of motion. No tenderness. No deformity RLE: Normal range of motion. No edema. No tenderness. No deformity LLE: Normal range of motion. No edema. No tenderness. No deformity Neurological: Alert and oriented to person, place, and time. Normal strength. CN II-VII intact. No sensory deficit. GCS eye subscore is 4. GCS verbal subscore is 5. GCS motor subscore is 6. Normal coordination Skin: Skin is warm and dry. No rash noted. No pallor. Normal capillary refill. Psychiatric: Normal mood. Normal affect. Const: Vital Signs, click to edit/add: Vital Signs - 24 hr 01/27/23 15:45 01/27/23 17:00 Temperature 98.7 F Pulse Rate [Pulse Oximeter] 100 Respiratory Rate 28 H Blood Pressure [Ri ght Upper Arm] 162/89 H 158/88 H Pulse Oximetry 91 Oxygen Delivery Me thod Room Air Course Vital Signs Vital signs: Initial Vital Signs Temperature 98.7 F 01/27/23 15:45 Temperature Source Temporal Artery Scan 01/27/23 15:45 Pulse Rate 100 01/27/23 15:45 Pulse Rhythm Regular 01/27/23 15:45 Pulse Strength 3+ Normal 01/27/23 15:45 Respiratory Rate 28 H 01/27/23 15:45 Blood Pressure 162/89 H 01/27/23 15:45 Blood Pressure Mean 113 H 01/27/23 15:45 Blood Pressure Position Semi-Fowlers 01/27/23 15:45 Pulse Oximetry 91 01/27/23 15:45 Oxygen Delivery Method Room Air 01/27/23 15:45 Vital Signs Temperature 98.7 F 01/27/23 15:45 Pulse Rate 100 01/27/23 15:45 Respiratory Rate 28 H 01/27/23 15:45 Blood Pressure 162/89 H 01/27/23 15:45 Pulse Oximetry 91 01/27/23 15:45 Oxygen Delivery Method Room Air 01/27/23 15:45 Temperature 98.7 F 01/27/23 15:45 Pulse Rate 100 01/27/23 15:45 Respiratory Rate 28 H 01/27/23 15:45 Blood Pressure 158/88 H 01/27/23 17:00 Pulse Oximetry 91 01/27/23 15:45 Oxygen Delivery Method Room Air 01/27/23 15:45 Medications Administered Medications: Discontinued Medications Generic Name Dose Route Start Last Admin Trade Name Marbin PRN Reason Stop Dose Admin Albuterol/Ipratropium 1 neb 01/27/23 16:31 01/27/23 16:48 Iprat-Albut 0.5-2.5 Mg/3 Ml Neb IH 01/27/23 16:32 1 neb ONCE ONE Administration Medical Decision Making MDM Narrative Medical decision making narrative: Very pleasant 77-year-old male with a complex past history notable for COPD and right pleural effusion and lung mass (not yet complete workup) returns to the ER today for shortness of breath, chest pain. He was here last week for shortness of breath and chest pain. He was thought to have COPD exacerbation combined with pleural effusion causing his symptoms. Last week he was treated with nebulizers, and improved. He was discharged home with a course of steroids and antibiotics. He did take those medications and felt better for several days but has been getting more short of breath again for the past couple of days, and is experiencing lower oxygen levels at home. He does have some baseline hypoxia at home which is worse. Sats were down to the low 80s on room air this morning. Workup here in the ER shows no evidence for acute coronary syndrome or CHF. Repeat chest x-ray shows a large right pleural effusion. Overall probably stable from last week. He is not febrile nor is he having significant coughing here in the ER. Although pneumonia cannot be ruled out on the chest x-ray, clinically I do not think he has pneumonia. White blood cell count is 11, which is essentially stable from last week when it was 10. Respiratory rate is in the high 20s but overall he is stable. He is not showing signs of respiratory fatigue or impending respiratory failure. Discussed with hospitalist. She agrees that with the patient's trajectory of getting slowly worse over time , culminating in his worsening hypoxia today, although he is not in impending respiratory failure, it makes sense for him to be admitted to the hospital tonight. Even after neb treatments, he remains on nasal cannula. Also consulted with surgery, Dr. Whittington. At this point the patient does not he would need emergent chest drainage but she will consult with plan for thoracentesis in morning. Consider possible COPD as a cause for his dyspnea. He had minimal wheezing on my initial exam. Treatment with DuoNeb was perhaps mildly helpful. He remains on nasal cannula even after nebs. At this point not clear that he is having an active COPD exacerbation so will hold off on additional steroids or antibiotics. Without any tachycardia, unilateral leg swelling, I think the patient is low risk for PE. With an alternative explanation for his hypoxia and dyspnea (pleural effusion) clearly identified, will hold off on CT PA for now. Lab Data Labs: Lab Results 01/27/23 01/27/23 01/27/23 Range/Units 16:45 16:45 17:07 WBC 11.34 H (4.50-11.00) K/uL RBC 4.03 L (4.30-5.90) m/uL Hgb 12.1 L (13.5-17.5) gm/dL Hct 37.5 (37.0-53.0) % MCV 93 (80-100) fL MCH 30 (26-34) pg MCHC 32 (32-36) gm/dL RDW Coeff of Kevin 14.2 (11.5-15.5) % Plt Count 284 (140-440) K/uL Neut % (Auto) 70.8 (42.0-72.0) % Lymph % (Auto) 16.0 L (20-44) % Camb[place] % (Auto) 10.1 (0.0-11.0) % Eos % (Auto) 2.6 (0.0-7.0) % Baso % (Auto) 0.1 (0.0-3.0) % Neut # (Auto) 8.00 H (1.7-7.0) K/uL Lymph # (Auto) 1.80 (0.90-2.90) K/uL [place] # (Auto) 1.10 H (0.00-0.90) K/UL Eos # (Auto) 0.30 (0.00-0.50) K/uL Baso # (Auto) 0.00 (0.00-0.30) K/uL Abs Immat Gran (auto) 0.00 (0.00-0.30) K/uL Imm/Tot Granulo (auto) 0.4 % Sodium 137 (135-149) mmol/L Potassium 4.0 (3.6-5.1) mmol/L Chloride 101 (96-114) mmol/L Carbon Dioxide 30 (20-32) mmol/L Anion Gap 6 L (7-15) mEq/L BUN 20 (7-30) mg/dL Creatinine 1.1 (0.5-1.5) mg/dL Estimated Creat Clear 53.98 Estimated GFR 70 ml/min Glucose 84 (60-115) mg/dL Calcium 8.0 L (8.4-10.6) mg/dL Troponin I < 0.01 L (0.01-0.04) ng/mL NT-Pro-B Natriuret Pep Cancelled 261 SARS-CoV-2 (PCR) Negative SARS-CoV-2 (Negative) Influenza Type A (PCR) Negative PCR FLU A (Negative) Influenza Type B (PCR) Negative PCR FLU B (Negative) RSV (PCR) Negative PCR RSV (Negative) ECG Data Attestation: I personally reviewed and interpreted this ECG as follows: Interpretation: Normal sinus rhythm rate 83. SC 124 QRS axis normal axis. Voltage criteria for LVH. ST segment/T wave: No ST segment elevation or depression. QTc: 444 Discharge Plan Discharge Clinical Impression: Pleural effusion, Hypoxia, COPD (chronic obstructive pulmonary disease) Patient Disposition: Admitted As Observation
[2023-01-27 16:53] LABS: Basophils Percent Auto 0.1 % (0.0-3.0); Eosinophils Percent Auto 2.6 % (0.0-7.0); Hematocrit 37.5 % (37.0-53.0); Hemoglobin* 12.1 gm/dL (13.5-17.5); Immature Granulocytes Pct Auto 0.4 %; Mean Corpuscular HGB Conc 32 gm/dL (32-36); Mean Corpuscular Hemoglobin 30 pg (26-34); Mean Corpuscular Volume 93 fL (80-100); Monocytes Percent Auto 10.1 % (0.0-11.0); Neutrophils Percent Auto 70.8 % (42.0-72.0); Platelet Count* 284 K/uL (140-440); RDW Coefficient of Variation % 14.2 % (11.5-15.5); Red Blood Count 4.03 m/uL (4.30-5.90); White Blood Count* 11.34 K/uL (4.50-11.00)
[2023-01-27 16:56] LABS: Slide Review Reflex No
[2023-01-27 17:08] LABS: Chloride* 101 mmol/L (96-114); Sodium* 137 mmol/L (135-149)
[2023-01-27 17:11] LABS: Anion Gap 6 mEq/L (7-15); Blood Urea Nitrogen* 20 mg/dL (7-30); Carbon Dioxide* 30 mmol/L (20-32); Creatinine* 1.1 mg/dL (0.5-1.5); Est. Creatinine Clearance* 53.98; Estimated Glomerular Filt Rate 70 ml/min; Glucose* 84 mg/dL (60-115)
[2023-01-27 17:32] LABS: NT Pro B Type NatriureticPept* 261 pg/mL; Troponin I* < 0.01 ng/mL (0.01-0.04)
[2023-01-27 18:07] LABS: PCR FLU A Negative PCR FLU A (Negative); PCR FLU B Negative PCR FLU B (Negative); PCR RSV Negative PCR RSV (Negative)
[2023-01-27 18:09] LABS: SARS PCR* Negative SARS-CoV-2 (Negative)
[2023-01-27 20:16] LABS: Magnesium* 2.2 mg/dL (1.5-2.6)
[2023-01-27 20:34] LABS: Procalcitonin* 0.06 ng/mL (<0.50)
--- NOTE | 2023-01-27 20:49 | P.IMHP_ITS ---
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 Patient reports increasingly worsening shortness of breath since October. Was last seen in the ED on 01/22/[address] chest showed right hilar mass/adenopathy increased from the prior study (11/2022) with right middle lobe collapse and collapse of the majority of the right lower lobe as well. Small to moderate right effusion. He was treated with azithromycin and prednisone which he completed on 01/26/2023. This morning when he awoke he checked his oxygen saturation as he normally does every morning and noted it to be in the low 80s. Typical morning readings have been low 90s with desaturations into the 80s with ambulation. He was able to get his saturations up for a brief period of time today but has increasingly felt worse all day. He denies headache. Did have an episode of dizziness this afternoon which has since resolved. Has had chest tightness with a dry cough. Denies recent fevers chills sweats. Denies recent nausea vomiting diarrhea. Reports an approximate 25 lb weight loss, unintentional, since the beginning of the year. Poor appetite. He last saw his PCP on 01/25/2023. He was scheduled to see Pulmonology at [facility] tomorrow and has an appointment with Dr. Tejada on 04/12/2022 for consideration of a thoracentesis. Patient has smoked since the age of 14 having quit in October 2022. Last alcoholic drink was greater than 30 years ago. In the ED, a repeat chest x-ray shows a large right pleural effusion with compressive atelectasis. ED provider discussed findings with Dr. Tejada, decision was made to admit patient for observation with planned thoracentesis tomorrow. Review of Systems Narrative: REVIEW OF SYSTEMS: Complete review of systems performed and negative unless otherwise stated in HPI or below. [facility] Medical History Cardiomyopathy ?I42.9 - Cardiomyopathy, unspecified (ICD-10) Surgical History S/P right inguinal hernia repair ?Z98.890 - Other specified postprocedural states (ICD-10) ?Z87.19 - Personal history of other diseases of the digestive system (ICD-10) History of tonsillectomy ?Z90.89 - Acquired absence of other organs (ICD-10) Social History Narrative: Patient continues to smoke but 1 pack of cigarettes may last him 2 weeks. Denies drinking alcohol. Smoking Status: Former smoker Do you use any of these nicotine containing products: None Second hand tobacco smoke exposure: No How often do you have a drink containing alcohol: never AUDIT-C Alcohol total score: 0 Non-prescribed substance use: denies use Little interest or pleasure in doing things: several days Feeling down, depressed, or hopeless: several days service: No Meds Home Medications and Allergies Home Medications Medication Instructions Recorded Confirmed Type aspirin 81 mg tablet,delayed 81 mg PO QDAY 01/13/22 01/27/23 History release (Adult Aspirin Regimen) nitroglycerin 0.4 mg sublingual 0.4 mg sublingual Q5M PRN 01/13/22 01/27/23 History tablet prednisone 20 mg tablet 40 mg PO QDAY PRN 12/02/22 01/27/23 History azithromycin 250 mg tablet mg PO 01/25/23 01/25/23 History Home Medication Comments: Reports he uses Breo Ellipta as well. Brought his inhalers with him tonight. Allergies Allergy/AdvReac Type Severity Reaction Status Date / Time bee venom protein (honey bee) Allergy Mild Anaphylaxis Verified 01/27/23 15:41 procaine [From Novocain] Allergy Mild Nausea Verified 01/27/23 15:41 atorvastatin AdvReac Mild Muscle Pain Verified 01/27/23 15:41 Exam Narrative: Exam Narrative: PHYSICAL EXAM General: Sitting up in bed, very pleasant, conversant, NAD HEENT: Normocephalic, atraumatic, sclera white, EOMI, oral mucosa moist Cardiovascular: RRR, S1S2. No pitting edema Pulmonary: Expiratory wheezes noted left lobe, diminished breath sounds throughout right side, mild dyspnea on nasal cannula. Conversing normally otherwise Neurological: Alert, answering questions appropriately, cranial nerves intact, no focal findings Extremities: No gross joint deformity or swelling. AROMI. Neurovascularly intact Skin: Warm, dry. Const: Vital Signs, click to edit/add: Vital Signs - 24 hr 01/27/23 15:45 01/27/23 17:00 01/27/23 19:32 Temperature 98.7 F Pulse Rate 96 Pulse Rate [Pulse Oximeter] 100 Respiratory Rate 28 H Blood Pressure [Ri ght Arm] Blood Pressure [Ri ght Upper Arm] 162/89 H 158/88 H Pulse Oximetry 91 91 Oxygen Delivery Me thod Room Air Oxygen Flow Rate 01/27/23 19:45 01/27/23 19:58 01/27/23 20:06 Temperature Pulse Rate 95 Pulse Rate [Pulse Oximeter] 93 Respiratory Rate 20 18 Blood Pressure [Ri ght Arm] 150/87 H Blood Pressure [Ri ght Upper Arm] Pulse Oximetry 93 91 91 Oxygen Delivery Me thod Nasal Cannula Nasal Cannula Oxygen Flow Rate 2 2 Hospitalist - H&P: Result Labs Labs: Short CBC 01/27/23 Range/Units 16:45 WBC 11.34 H (4.50-11.00) K/uL Hgb 12.1 L (13.5-17.5) gm/dL Hct 37.5 (37.0-53.0) % Plt Count 284 (140-440) K/uL BMP 01/27/23 16:45 Sodium 137 Potassium 4.0 Chloride 101 Carbon Dioxide 30 BUN 20 Creatinine 1.1 Glucose 84 Calcium 8.0 L Cardiac Enzymes 01/27/23 Range/Units 16:45 Troponin I < 0.01 L (0.01-0.04) ng/mL Imaging Chest x-ray: Radiologist's impression: Mediastinum: Stable cardiac silhouette. Lungs: Hyperinflated lungs with flattening of the left hemidiaphragm, compatible with COPD. Emphysematous changes. Linear bandlike opacifications of the lung bases likely due to subsegmental atelectasis and/or scarring. Increase interstitial lung markings with Sunshine B lines. No definite focal consolidation. Compressive atelectasis of the right lung base. Airways: The trachea remains midline. Pleura: Large right pleural effusion, similar to the prior radiographs from 01/22/2023. no left pleural effusion. No pneumothorax. Bones: No acute osseous abnormalities. Degenerative changes of the thoracic spine. Upper Abdomen: Unremarkable. IMPRESSION: Large right pleural effusion with compressive atelectasis of the right lung base, grossly unchanged. A superimposed pneumonia should be clinically excluded. Stable examination. Assessment and Plan Assessment and plan (1) Hypoxia: Problem comment: -in setting of increasing pleural effusion, right hilar mass -acute on chronic, normal saturations low 90s with desaturations to mid 80s with ambulation -afebrile, mild leukocytosis without left shift, procalcitonin 0.06, BNP 261, troponin <0.01, magnesium 2.2 -not currently using supplemental oxygen at home. Consider home oxygen assessment prior to discharge Status: Acute (2) Pleural effusion: Problem comment: -increased since November, suspicious for malignancy -originally scheduled for general surgery consult on 02/09/2023 and had an appointment with Pulmonology at [facility] tomorrow -discussed with Dr. Tejada, General Surgery. Will plan for thoracentesis tomorrow-likely late morning Status: Acute (3) Lung mass: Problem comment: -right hilar mass/adenopathy, increased from previous studies, suspicious for malignancy. 25 lb weight loss in last year -management as above Status: Acute (4) COPD (chronic obstructive pulmonary disease): Problem comment: -acute on chronic hypoxia without recent history of hypercapnia -continue supplemental oxygen to maintain saturations 88-92%, continuing to wean as able -continue home inhalers including Spiriva and Breo Ellipta, p.r.n. nebulizers, incentive spirometry -RT consult for pulmonary support -finished course of azithromycin and prednisone 01/26/2023 -will continue with short course of prednisone, deferring additional antibiotics at this time Status: Acute (5) Tobacco use: Problem comment: -quit smoking in October 2022 has otherwise smoked since the age of 14 Status: Acute (6) Obstructive sleep apnea syndrome: Problem comment: -not currently using CPAP Status: Acute (7) HTN (hypertension): Problem comment: -continue lisinopril, terazosin, and metoprolol Status: Acute (8) Hyperlipidemia: Problem comment: -continue statin, aspirin Status: Acute (9) Chronic kidney disease, stage III (moderate): Problem comment: -creatinine stable at 1.1, baseline 0.9-1.2. Avoid nephrotoxic medications, continue to monitor Status: Acute Plan CODE: DNR/DNI VTE PPX: Enoxaparin Disposition: Observation
[2023-01-27] MEDS: ALBUTEROL INHALER 2 PUFF IH (22:00)
[2023-01-27] MEDS: ENOXAPARIN 40 MG/0.4 ML INJ SUBCUT (23:24)
[2023-01-27] MEDS: SODIUM CHLORIDE 0.9 % (FLUSH) 10 ML SYRINGE 5 ML IVF (23:29)
[2023-01-28] VITALS (7 sets, daily range): BP systolic 131–154; BP diastolic 83–105; PULSE 97–119; RESP 21–24; TEMP 36.8–36.9; O2SAT 86–92; BMI 18.6
[2023-01-28] MEDS: ALBUTEROL SULFATE 2.5 MG/3 ML VIAL.NEB NEB ×2 (00:58→09:00)
--- NOTE | 2023-01-28 04:32 | PC.NURSE ---
Admitted from ED. Pleasant, cooperative, alert and oriented. Reports SOB with ambulation and exertion. Stand by assist with transfers. Reported chest pressure at times; otherwise denied discomfort. PRN albuterol neb given per patient request for SOB. Sats 92% on 1 LPM via NC.
[2023-01-28 06:38] LABS: HCO3 VBG 30 mmol/L (21-28); PCO2 VBG 48 mmHG (40-50); PO2 VBG 39.2 mmHG (25-47); pH VBG 7.405 (7.32-7.43)
[2023-01-28 06:51] LABS: Hematocrit 36.6 % (37.0-53.0); Hemoglobin* 11.9 gm/dL (13.5-17.5); Mean Corpuscular HGB Conc 33 gm/dL (32-36); Mean Corpuscular Hemoglobin 30 pg (26-34); Mean Corpuscular Volume 93 fL (80-100); Platelet Count* 285 K/uL (140-440); Red Blood Count 3.93 m/uL (4.30-5.90); White Blood Count* 10.42 K/uL (4.50-11.00)
[2023-01-28 06:58] LABS: Slide Review Reflex No
[2023-01-28 06:59] LABS: INR 1.22 (0.91-1.10); Prothrombin Time 16.2 Seconds
[2023-01-28 07:24] LABS: Chloride* 103 mmol/L (96-114)
[2023-01-28 07:25] LABS: Potassium* 4.6 mmol/L (3.6-5.1); Sodium* 134 mmol/L (135-149)
[2023-01-28 07:27] LABS: Anion Gap 4 mEq/L (7-15); Bilirubin Total* 0.6 mg/dL (0.1-1.5); Carbon Dioxide* 27 mmol/L (20-32); Cholesterol* 139 mg/dL (90-199); Est. Creatinine Clearance* 57.97; Estimated Glomerular Filt Rate 78 ml/min; Total Protein* 5.4 g/dL (6.0-8.3)
[2023-01-28 07:28] LABS: Blood Urea Nitrogen* 22 mg/dL (7-30); Calcium* 7.9 mg/dL (8.4-10.6); Glucose* 87 mg/dL (60-115); Lactate Dehydrogenase* 300 U/L (120-246)
[2023-01-28] MEDS: predniSONE 20 MG TABLET 40 MG PO (08:57)
[2023-01-28] MEDS: TERAZOSIN HCL 5 MG CAPSULE 10 MG PO (08:58)
[2023-01-28] MEDS: ASPIRIN 81 MG TABLET EC PO (08:58)
[2023-01-28] MEDS: SIMVASTATIN 40 MG TABLET PO (08:59)
[2023-01-28] MEDS: METOPROLOL SUCCINATE (XL) 25 MG TAB PO (08:59)
[2023-01-28] MEDS: lisinopriL 20 MG TABLET 40 MG PO (09:00)
[2023-01-28] MEDS: SODIUM CHLORIDE 0.9 % (FLUSH) 10 ML SYRINGE 5 ML IVF (09:04)
--- NOTE | 2023-01-28 10:09 | P.IMPN_ITS ---
Progress Note: A&P Assessment and plan (1) Pleural effusion: Problem details: Large right pleural effusion that has developed since a relatively normal chest x-ray in July. Associated with this there is a right hilar mass. Concern for malignancy. No evidence of heart disease or heart failure. Clinically does not appear to have pneumonia, parapneumonic effusion or empyema. Status: Acute (2) Lung mass: Problem details: Ongoing evaluation after thoracenteses Status: Acute (3) HTN (hypertension): Problem details: -continue lisinopril, terazosin, and metoprolol Status: Acute (4) Malnutrition: Problem details: Weight loss of 8 kg in 6 months from June 2022 to December 2022. Patient attributes this to poor appetite. Concern for malignancy Status: Acute (5) Hypoxia: Problem details: Likely multiple factors contributing including large right pleural effusion, COPD, untreated sleep apnea. Assess whether outpatient home oxygen will be required after thoracentesis Status: Acute (6) Tobacco use: Problem details: -quit smoking in October 2022 has otherwise smoked since the age of 14 Status: Acute (7) Obstructive sleep apnea syndrome: Problem details: -not currently using CPAP Status: Acute (8) COPD (chronic obstructive pulmonary disease): Problem details: -acute on chronic hypoxia without recent history of hypercapnia -continue supplemental oxygen to maintain saturations 88-92%, continuing to wean as able -continue home inhalers including Spiriva and Breo Ellipta, p.r.n. nebulizers, incentive spirometry -RT consult for pulmonary support -finished course of azithromycin and prednisone 01/26/2023 -will continue with short course of prednisone, deferring additional antibiotics at this time Status: Acute Plan Patient admitted to the hospital for management of hypoxic respiratory failure and large right pleural effusion. Ongoing evaluation of hypoxia and weight loss. Further evaluation for malignancy is also pending. Time Spent With Patient Total time spent: Total time spent today is 60 minutes, 45 minutes in coordination of care and d iscussing with patient other providers ongoing evaluation management of hypoxia, pleural effusion, with weight loss Subjective Date Seen: 01/28/23 Interval history: 77-year-old male with COPD, coronary artery disease, CKD, BPH, SARI admitted to the hospital with weeks of progressive dyspnea and months of weight loss. Patient reports that he has been having progressive dyspnea over about the last 3 months. He has had longstanding dyspnea due to cigarette smoking and longstanding COPD. This has been getting worse in the last 3 months however. He has not had a fever. He has not been on home oxygen. He does normally monitor his oximetry at home. Normally he is in the low 90s but now he is in the low 80s with any activity. He does not have chest pain. He was seen last week in clinic and found to have a large right pleural effusion. Chest CT was obtained showing that that was also associated with atelectasis of the right lower lobe and right middle. He had recent treatment with a Zithromax in and prednisone. He reports that he has had ongoing weight loss. He thinks he has lost 20 lb this year. Documentation in his medical record shows about 8 kg of weight loss since June 2022. He tells me he has adequate food but has no appetite to eat. He has not had abdominal pain or vomiting. He did undergo recent hernia surgery. He has not had complications related to that. He does have a remote history of a stress cardiomyopathy. This has apparently not been a problem for him for years. Exam Narrative: Exam Narrative: He is alert and in no distress. He gives his own history. He appears malnourished with generalized muscle wasting and minimal subcutaneous fat. Respirations with diffusely decreased breath sounds. Right base may be more decrease in the rest of his lungs. He has prolonged expiratory phase. A rare basilar crackle. No significant wheezing. Cardiovascular: S1, S2, regular rate and rhythm. No murmur gallop or rub. Abdomen: Bowel sounds active. Abdomen is soft without tenderness or mass. Extremities without edema. He moves all 4 extremities well. Intact peripheral pulses Const: Vital Signs, click to edit/add: Vital Signs - 24 hr 01/27/23 15:45 01/27/23 17:00 01/27/23 19:32 Temperature 98.7 F Pulse Rate 96 Pulse Rate [Bilate ral Radial] Pulse Rate [Pulse Oximeter] 100 Respiratory Rate 28 H Blood Pressure [Ri ght Arm] Blood Pressure [Ri ght Upper Arm] 162/89 H 158/88 H Pulse Oximetry 91 91 Oxygen Delivery Me thod Room Air Oxygen Flow Rate 01/27/23 19:45 01/27/23 19:58 01/27/23 20:04 Temperature Pulse Rate 95 Pulse Rate [Bilate ral Radial] Pulse Rate [Pulse Oximeter] Respiratory Rate 20 22 Blood Pressure [Ri ght Arm] Blood Pressure [Ri ght Upper Arm] Pulse Oximetry 93 91 90 Oxygen Delivery Me thod Nasal Cannula Nasal Cannula Oxygen Flow Rate 2 1 01/27/23 20:06 01/27/23 23:00 01/28/23 03:00 Temperature 98.3 F 98.5 F Pulse Rate Pulse Rate [Bilate ral Radial] Pulse Rate [Pulse Oximeter] 93 98 102 H Respiratory Rate 18 22 21 Blood Pressure [Ri ght Arm] 150/87 H 141/80 H 154/91 H Blood Pressure [Ri ght Upper Arm] Pulse Oximetry 91 90 92 Oxygen Delivery Me thod Nasal Cannula Nasal Cannula Nasal Cannula Oxygen Flow Rate 2 1 1 01/28/23 03:35 01/28/23 07:00 01/28/23 07:00 Temperature 98.5 F Pulse Rate 103 H Pulse Rate [Bilate ral Radial] 102 H 102 H Pulse Rate [Pulse Oximeter] 102 H Respiratory Rate 24 24 Blood Pressure [Ri ght Arm] 141/105 H Blood Pressure [Ri ght Upper Arm] Pulse Oximetry 92 Oxygen Delivery Me thod Nasal Cannula Oxygen Flow Rate 1 01/28/23 08:33 Temperature Pulse Rate 97 Pulse Rate [Bilate ral Radial] Pulse Rate [Pulse Oximeter] Respiratory Rate Blood Pressure [Ri ght Arm] Blood Pressure [Ri ght Upper Arm] Pulse Oximetry Oxygen Delivery Me thod Oxygen Flow Rate Documenting provider has reviewed patient's vital signs: yes Labs Labs: Laboratory Results - last 24 hr 01/27/23 01/27/23 01/27/23 16:45 16:45 17:07 WBC 11.34 H RBC 4.03 L Hgb 12.1 L Hct 37.5 MCV 93 MCH 30 MCHC 32 RDW Coeff of Kevin 14.2 Plt Count 284 Neut % (Auto) 70.8 Lymph % (Auto) 16.0 L [place] % (Auto) 10.1 Eos % (Auto) 2.6 Baso % (Auto) 0.1 Neut # (Auto) 8.00 H Lymph # (Auto) 1.80 [place] # (Auto) 1.10 H Eos # (Auto) 0.30 Baso # (Auto) 0.00 Abs Immat Gran (auto) 0.00 Imm/Tot Granulo (auto) 0.4 INR VBG pH VBG pCO2 VBG pO2 VBG HCO3 Sodium 137 Potassium 4.0 Chloride 101 Carbon Dioxide 30 Anion Gap 6 L BUN 20 Creatinine 1.1 Estimated Creat Clear 53.98 Estimated GFR 70 Glucose 84 Calcium 8.0 L Magnesium 2.2 Total Bilirubin Lactate Dehydrogenase Troponin I < 0.01 L NT-Pro-B Natriuret Pep Cancelled 261 Total Protein Albumin Cholesterol Procalcitonin 0.06 SARS-CoV-2 (PCR) Negative SARS-CoV-2 Influenza Type A (PCR) Negative PCR FLU A Influenza Type B (PCR) Negative PCR FLU B RSV (PCR) Negative PCR RSV Lab Acknowledgement 01/27/23 01/27/23 01/28/23 20:07 20:07 05:55 WBC 10.42 RBC 3.93 L Hgb 11.9 L Hct 36.6 L MCV 93 MCH 30 MCHC 33 RDW Coeff of Kevin Plt Count 285 Neut % (Auto) Lymph % (Auto) [place] % (Auto) Eos % (Auto) Baso % (Auto) Neut # (Auto) Lymph # (Auto) [place] # (Auto) Eos # (Auto) Baso # (Auto) Abs Immat Gran (auto) Imm/Tot Granulo (auto) INR 1.22 H VBG pH 7.405 VBG pCO2 48 VBG pO2 39.2 VBG HCO3 30 H Sodium 134 L Potassium 4.6 Chloride 103 Carbon Dioxide 27 Anion Gap 4 L BUN 22 Creatinine 1.0 Estimated Creat Clear 57.97 Estimated GFR 78 Glucose 87 Calcium 7.9 L Magnesium Total Bilirubin 0.6 Lactate Dehydrogenase 300 H Troponin I NT-Pro-B Natriuret Pep Total Protein 5.4 L Albumin 3.0 L Cholesterol 139 Procalcitonin SARS-CoV-2 (PCR) Influenza Type A (PCR) Influenza Type B (PCR) RSV (PCR) Lab Acknowledgement Test Added Test Added
--- NOTE | 2023-01-28 11:30 | CRLHL7_ITS ---
For Patients: As a result of the Century Cures Act, medical imaging exams and procedure reports are released immediately into your electronic medical record. You may view this report before your referring provider. If you have questions, please contact your health care provider. INDICATION: Short of breath, pleural effusion, s/p thoracentesis COMPARISON: 01/27/2023, 01/22/2023. TECHNIQUE: 1 view chest radiograph. FINDINGS: The left lung is hyperinflated. Worsening reticulonodular opacities in the right upper lobe. The right middle and lower lobes are largely collapse. No pulmonary edema. Moderate size right pleural effusion does not appear appreciably different size or configuration compared to prior. No left pleural effusion. No pneumothorax. No pneumomediastinum. Unchanged cardiomediastinal silhouette. Bones: Normal for age. IMPRESSION: Nonspecific worsening opacities in the right upper lobe could be infectious. Multiple small nodules seen on recent chest CT. The right-sided effusion does not appear appreciably different. No pneumothorax. Dictated by Wendy Waller MD @ 01/28/2023 1:20:14 PM (Electronically Signed)
--- NOTE | 2023-01-28 12:41 | P.GSCN_ITS ---
History of Present Illness Consult details Date Seen: 01/28/23 Consult date: 01/28/23 Narrative: The patient is a 77-year-old male with a history of COPD and tobacco use who states that he has been getting progressively short of breath. He states that last Wednesday he went to the ER because he was so short of breath. He was treated for COPD exasperation and felt better however on Wednesday when his medication course ended he felt worse. Wednesday evening he was short of breath and had chest pain so he came back to the emergency department. When he was seen last Wednesday he was noted to have a right-sided pleural effusion as well as concern for a lung mass. He was told to follow up with his primary care doctor and had a referral for thoracentesis. Repeat chest x-ray in the ER yesterday showed persistent pleural effusion. He states that he has been shortened a breath for many years. The shortness of breath though now is worse with laying down. He states he can do almost no activity because of it. He does not take any blood thinners other than aspirin and has never had a thoracentesis previously. [facility] Medical History (Updated 01/28/23 @ 10:21 by Vinny Justin MD) Malnutrition ?E46 - Unspecified protein-calorie malnutrition (ICD-10) Cardiomyopathy ?I42.9 - Cardiomyopathy, unspecified (ICD-10) Surgical History S/P right inguinal hernia repair ?Z98.890 - Other specified postprocedural states (ICD-10) ?Z87.19 - Personal history of other diseases of the digestive system (ICD-10) History of tonsillectomy ?Z90.89 - Acquired absence of other organs (ICD-10) Social History Narrative: Patient continues to smoke but 1 pack of cigarettes may last him 2 weeks. Denies drinking alcohol. What is your current living situation?: I presently have a place to live Problems where you live: carbon monoxide detectors missing or not working Problems where you live details: Has carbon monoxide detector, not plugged in. In the past 12 months, utilities in danger of being shut off: no In past 12 months, lack of transportation kept you from medical appts, meetings, work, or getting things needed for daily living: no In the past 12 mos, have been you worried that your food would run out before you had money to buy more?: never true In the past 12 mos, the food you bought just didn't last and you didn't have money to buy more?: never true Highest level of school completed/degree received: 10th grade Smoking Status: Former smoker What tobacco products do you use: cigarettes Smoking packs per day: 2 Smoking cigarettes per day: 40.0 Years smoked: 63 Smoking pack-years: 126.00 Smoking quit date/years: >15 years ago Do you use any of these nicotine containing products: None Second hand tobacco smoke exposure: No How often do you have a drink containing alcohol: never AUDIT-C Alcohol total score: 0 Non-prescribed substance use: denies use Caffeine: Yes (2 cups coffee) How often does anyone, including family, friends and others, physically hurt you : never How often does anyone, including family, friends and others, insult or talk down to you: never How often does anyone, including family, friends and others, threaten you with harm: never How often does anyone, including family, friends and others, scream or curse at you: never Little interest or pleasure in doing things: several days Feeling down, depressed, or hopeless: several days service: No Meds Home Medications and Allergies Home Medications Medication Instructions Recorded Confirmed Type aspirin 81 mg tablet,delayed 81 mg PO QDAY 01/13/22 01/27/23 History release (Adult Aspirin Regimen) nitroglycerin 0.4 mg sublingual 0.4 mg sublingual Q5M PRN 01/13/22 01/27/23 History tablet prednisone 20 mg tablet 40 mg PO QDAY PRN 12/02/22 01/27/23 History Allergies Allergy/AdvReac Type Severity Reaction Status Date / Time bee venom protein (honey bee) Allergy Mild Anaphylaxis Verified 01/27/23 15:41 procaine [From Novocain] Allergy Mild Nausea Verified 01/27/23 15:41 atorvastatin AdvReac Mild Muscle Pain Verified 01/27/23 15:41 Exam Narrative: Exam Narrative: General: No acute distress, cachectic appearing Respiratory: Breathing is somewhat labored. Intercostal retractions are noted. CV: Mildly tachycardic with a heart rate of 100. Const: Vital Signs, click to edit/add: Vital Signs - 24 hr 01/27/23 15:45 01/27/23 17:00 01/27/23 19:32 Temperature 98.7 F Pulse Rate 96 Pulse Rate [Bilate ral Radial] Pulse Rate [Pulse Oximeter] 100 Respiratory Rate 28 H Blood Pressure [Ri ght Arm] Blood Pressure [Ri ght Upper Arm] 162/89 H 158/88 H Pulse Oximetry 91 91 Oxygen Delivery Me thod Room Air Oxygen Flow Rate 01/27/23 19:45 01/27/23 19:58 01/27/23 20:04 Temperature Pulse Rate 95 Pulse Rate [Bilate ral Radial] Pulse Rate [Pulse Oximeter] Respiratory Rate 20 22 Blood Pressure [Ri ght Arm] Blood Pressure [Ri ght Upper Arm] Pulse Oximetry 93 91 90 Oxygen Delivery Me thod Nasal Cannula Nasal Cannula Oxygen Flow Rate 2 1 01/27/23 20:06 01/27/23 23:00 01/28/23 03:00 Temperature 98.3 F 98.5 F Pulse Rate Pulse Rate [Bilate ral Radial] Pulse Rate [Pulse Oximeter] 93 98 102 H Respiratory Rate 18 22 21 Blood Pressure [Ri ght Arm] 150/87 H 141/80 H 154/91 H Blood Pressure [Ri ght Upper Arm] Pulse Oximetry 91 90 92 Oxygen Delivery Me thod Nasal Cannula Nasal Cannula Nasal Cannula Oxygen Flow Rate 2 1 1 01/28/23 03:35 01/28/23 07:00 01/28/23 07:00 Temperature 98.5 F Pulse Rate 103 H Pulse Rate [Bilate ral Radial] 102 H 102 H Pulse Rate [Pulse Oximeter] 102 H Respiratory Rate 24 24 Blood Pressure [Ri ght Arm] 141/105 H Blood Pressure [Ri ght Upper Arm] Pulse Oximetry 92 Oxygen Delivery Me thod Nasal Cannula Oxygen Flow Rate 1 01/28/23 08:33 01/28/23 11:00 Temperature 98.3 F Pulse Rate 97 Pulse Rate [Bilate ral Radial] 102 H Pulse Rate [Pulse Oximeter] Respiratory Rate 22 Blood Pressure [Ri ght Arm] 131/83 Blood Pressure [Ri ght Upper Arm] Pulse Oximetry 91 Oxygen Delivery Me thod Nasal Cannula Oxygen Flow Rate 1 Results Labs Labs: Abnormal lab results 01/27/23 01/28/23 Range/Units 16:45 05:55 WBC 11.34 H (4.50-11.00) K/uL RBC 4.03 L 3.93 L (4.30-5.90) m/uL Hgb 12.1 L 11.9 L (13.5-17.5) gm/dL Hct 36.6 L (37.0-53.0) % Lymph % (Auto) 16.0 L (20-44) % Neut # (Auto) 8.00 H (1.7-7.0) K/uL [place] # (Auto) 1.10 H (0.00-0.90) K/UL INR 1.22 H (0.91-1.10) VBG HCO3 30 H (21-28) mmol/L Sodium 134 L (135-149) mmol/L Anion Gap 6 L 4 L (7-15) mEq/L Calcium 8.0 L 7.9 L (8.4-10.6) mg/dL Lactate Dehydrogenase 300 H (120-246) U/L Troponin I < 0.01 L (0.01-0.04) ng/mL Total Protein 5.4 L (6.0-8.3) g/dL Albumin 3.0 L (3.3-5.0) g/dL Diabetes panel 01/27/23 01/28/23 Range/Units 16:45 05:55 Sodium 137 134 L (135-149) mmol/L Potassium 4.0 4.6 (3.6-5.1) mmol/L Chloride 101 103 (96-114) mmol/L Carbon Dioxide 30 27 (20-32) mmol/L BUN 20 22 (7-30) mg/dL Creatinine 1.1 1.0 (0.5-1.5) mg/dL Glucose 84 87 (60-115) mg/dL Calcium 8.0 L 7.9 L (8.4-10.6) mg/dL Total Protein 5.4 L (6.0-8.3) g/dL Albumin 3.0 L (3.3-5.0) g/dL Calcium panel 01/27/23 01/28/23 Range/Units 16:45 05:55 Calcium 8.0 L 7.9 L (8.4-10.6) mg/dL Albumin 3.0 L (3.3-5.0) g/dL Pituitary panel 01/27/23 01/28/23 Range/Units 16:45 05:55 Sodium 137 134 L (135-149) mmol/L Potassium 4.0 4.6 (3.6-5.1) mmol/L Chloride 101 103 (96-114) mmol/L Carbon Dioxide 30 27 (20-32) mmol/L BUN 20 22 (7-30) mg/dL Creatinine 1.1 1.0 (0.5-1.5) mg/dL Glucose 84 87 (60-115) mg/dL Calcium 8.0 L 7.9 L (8.4-10.6) mg/dL Adrenal panel 01/27/23 01/28/23 Range/Units 16:45 05:55 Sodium 137 134 L (135-149) mmol/L Potassium 4.0 4.6 (3.6-5.1) mmol/L Chloride 101 103 (96-114) mmol/L Carbon Dioxide 30 27 (20-32) mmol/L BUN 20 22 (7-30) mg/dL Creatinine 1.1 1.0 (0.5-1.5) mg/dL Glucose 84 87 (60-115) mg/dL Calcium 8.0 L 7.9 L (8.4-10.6) mg/dL Total Bilirubin 0.6 (0.1-1.5) mg/dL Total Protein 5.4 L (6.0-8.3) g/dL Albumin 3.0 L (3.3-5.0) g/dL All other labs normal. Imaging Chest x-ray: report reviewed and image reviewed CT scan - chest: report reviewed and image reviewed Additional studies: Chest x-ray done on 01/27/2023: IMPRESSION: Large right pleural effusion with compressive atelectasis of the right lung base, grossly unchanged. A superimposed pneumonia should be clinically excluded. Stable examination. Dictated by Alex Mckeon MD @ 01/27/2023 6:21:[address] done on 01/22/2023: IMPRESSION: 1. Right hilar mass/adenopathy increased from the prior study. There is now right middle lobe collapse and collapse of the majority of the right lower lobe as well. Small to moderate right effusion. Findings are suspicious for malignancy pulmonary consultation recommended. Interlobular septal thickening in the right upper and right lower lobe. This could be related to pulmonary edema or lymphangitic spread. Diffuse predominantly small nodules within both lungs. Please note that all CT scans at this facility use dose modulation, iterative reconstruction, and/or weight-based dosing when appropriate to reduce radiation dose to as low as reasonably achievable. Dictated by Rachel Aceves MD @ 01/22/2023 8:03:49 PM Assessment and Plan Assessment and plan (1) Hypoxia: Problem comment: Likely multiple factors contributing including large right pleural effusion, COPD, untreated sleep apnea. Assess whether outpatient home oxygen will be required after thoracentesis Status: Acute (2) Pleural effusion: Problem comment: Large right pleural effusion that has developed since a relatively normal chest x-ray in July. Associated with this there is a right hilar mass. Concern for malignancy. No evidence of heart disease or heart failure. Clinically does not appear to have pneumonia, parapneumonic effusion or empyema. Status: Acute (3) COPD exacerbation: Status: Acute (4) Lung mass: Problem comment: Ongoing evaluation after thoracenteses Status: Acute Plan The patient is a 77-year-old male with a right-sided pleural effusion and worsening shortness of breath. Concern for malignancy. I was asked to perform a diagnostic and therapeutic thoracentesis. This was performed today. Specimens were sent for culture, cytology and chemistry. Postprocedure x-ray r evealed no pneumothorax though he still does have a significant effusion. Discharge per hospitalist, however patient should likely follow up with his primary and will likely need repeat thoracentesis as an outpatient. This could be scheduled electively in the next 1-2 weeks depending on symptoms.
--- NOTE | 2023-01-28 13:04 | P.PCN_ITS ---
Procedure Note Date Seen: 01/28/23 Date of procedure: 01/28/23 Will [facility] bill your pro fee for this procedure?: Yes Pre-op diagnosis: Right-sided pleural effusion Post-op diagnosis: same Procedure: Right thoracentesis Procedure Description: After discussion of the risks and benefits the patient was placed in a seated position leaning over a table. Ultrasound guidance was used to identify the effusion on the right side. Once this was done the site was marked. The area was prepped and draped in the usual sterile fashion. Local anesthetic was used to anesthetize the skin and subcutaneous tissue down to the rib. Once the rib was encountered, the needle was advanced over the top of the rib into the pleural space. This was confirmed by the aspiration of straw-colored fluid. A skin desmond was made with an 11 blade. The thoracentesis catheter was advanced into the pleural cavity while aspirating. Once the pleural fluid was aspirated confirming entrance into the chest cavity, the needle was removed and the sheath advanced. 2 L of fluid were then aspirated. Of note, the fluid was straw- colored in the catheter, however it was slightly blood tinged overall. The procedure was stopped at the 2 L marked prevent re-expansion pulmonary edema. Specimens were sent for cytology. The ultrasound was used to confirm successful aspiration evidence by decreased remaining fluid. The catheter was then removed, and an occlusive dressing was placed over the skin site. Patient tolerated the procedure well. Estimated blood loss 1 mL Postprocedure chest x-ray revealed no pneumothorax. Anesthesia: local Surgeon: Ammy Tejada M.D.
[2023-01-28 13:51] LABS: Bilirubin Total* 1.1 mg/dL (0.1-1.5)
[2023-01-28] MEDS: METOPROLOL TARTRATE 25 MG TABLET PO (15:02)
--- NOTE | 2023-01-28 15:10 | PC.NURSE ---
End of Shift Note: Patient has been alert and orientated for this shift. When I first seen him respiratory rate was 22-24 appeared short of breath. He had a thoracentesis with Dr. Tejada and pulled off 2000 cc of fluids and labs sent. He appears to be breathing a lot easier since that procedure. Dr. Justin is working on possibly discharging patient yet this afternoon. Will continue to monitor until next shift arrives.
--- NOTE | 2023-01-28 15:18 | PM.DS1 ---
DS: Providers Provider Date Seen: 01/28/23 Date of admission: 01/27/23 19:51 Primary care physician: Enmanuel Zamora MD Admitting Clinician: Connie Duran MD Attending Physician on discharge: Jamie Justin MD Date of Discharge: 01/28/23 DS: Diagnosis Discharge Diagnosis (1) Pleural effusion: Status: Acute Problem details: Large right pleural effusion that has developed since a relatively normal chest x-ray in July. Associated with this there is a right hilar mass. Concern for malignancy. No evidence of heart disease or heart failure. Clinically does not appear to have pneumonia, parapneumonic effusion or empyema. Today, on 01/28/2023, Dr. Tejada did thoracentesis to remove 2 L of bloody fluid. Cultures, chemistry, cell counts, cytology all pending (2) Hypoxia: Status: Acute Problem details: Likely multiple factors contributing including large right pleural effusion, COPD, untreated sleep apnea. Discharge to home on oxygen: 1 L at rest and 2 L with activity (3) Malnutrition: Status: Acute Problem details: Weight loss of 8 kg in 6 months from June 2022 to December 2022. Patient attributes this to poor appetite. Concern for malignancy (4) Lung mass: Status: Acute Problem details: Ongoing evaluation after thoracenteses. (5) Tobacco use: Status: Acute Problem details: -quit smoking in October 2022 has otherwise smoked since the age of 14 (6) Obstructive sleep apnea syndrome: Status: Acute Problem details: -not currently using CPAP DS: Summary Hospital Course Hospital Course: 77-year-old male admitted to the hospital with progressive dyspnea. CT findings of a large right pleural effusion and right lung mass. Underwent thoracentesis removing 2 L of bloody fluid which he tolerated well. He said it helped him breathe much better. Still requiring oxygen with O2 sats 88% on room air. Discharge to home on oxygen. The thoracentesis removed only up partial amount of his pleural effusion and it is recommended for symptom relief that he have a repeat thoracentesis next week with Dr. Tejada. Patient was fairly tachycardic. I recommend we increase his metoprolol from 25-50 mg daily and at the same time decrease his lisinopril from 40-20 mg daily pending outpatient followup. Status at Discharge Functional status at discharge: independent ambulation Overall status at discharge: patient is not back to baseline Time Spent with Patient Time attestation: Total time spent providing and/or coordinating discharge services: Time spent: Greater than 30 minutes Exam Narrative: Exam Narrative: He is alert and appears in no distress. Diminished breath sounds throughout all lung bradley. Cardiovascular: S1-S2 regular rate and rhythm. Const: Vital Signs, click to edit/add: Vital Signs - 24 hr 01/27/23 15:45 01/27/23 17:00 01/27/23 19:32 Temperature 98.7 F Pulse Rate 96 Pulse Rate [Bilate ral Radial] Pulse Rate [Pulse Oximeter] 100 Respiratory Rate 28 H Blood Pressure [Ri ght Arm] Blood Pressure [Ri ght Upper Arm] 162/89 H 158/88 H Pulse Oximetry 91 91 Oxygen Delivery Me thod Room Air Oxygen Flow Rate 01/27/23 19:45 01/27/23 19:58 01/27/23 20:04 Temperature Pulse Rate 95 Pulse Rate [Bilate ral Radial] Pulse Rate [Pulse Oximeter] Respiratory Rate 20 22 Blood Pressure [Ri ght Arm] Blood Pressure [Ri ght Upper Arm] Pulse Oximetry 93 91 90 Oxygen Delivery Me thod Nasal Cannula Nasal Cannula Oxygen Flow Rate 2 1 01/27/23 20:06 01/27/23 23:00 01/28/23 03:00 Temperature 98.3 F 98.5 F Pulse Rate Pulse Rate [Bilate ral Radial] Pulse Rate [Pulse Oximeter] 93 98 102 H Respiratory Rate 18 22 21 Blood Pressure [Ri ght Arm] 150/87 H 141/80 H 154/91 H Blood Pressure [Ri ght Upper Arm] Pulse Oximetry 91 90 92 Oxygen Delivery Me thod Nasal Cannula Nasal Cannula Nasal Cannula Oxygen Flow Rate 2 1 1 01/28/23 03:35 01/28/23 07:00 01/28/23 07:00 Temperature 98.5 F Pulse Rate 103 H Pulse Rate [Bilate ral Radial] 102 H 102 H Pulse Rate [Pulse Oximeter] 102 H Respiratory Rate 24 24 Blood Pressure [Ri ght Arm] 141/105 H Blood Pressure [Ri ght Upper Arm] Pulse Oximetry 92 Oxygen Delivery Me thod Nasal Cannula Oxygen Flow Rate 1 01/28/23 08:33 01/28/23 11:00 Temperature 98.3 F Pulse Rate 97 Pulse Rate [Bilate ral Radial] 102 H Pulse Rate [Pulse Oximeter] Respiratory Rate 22 Blood Pressure [Ri ght Arm] 131/83 Blood Pressure [Ri ght Upper Arm] Pulse Oximetry 91 Oxygen Delivery Me thod Nasal Cannula Oxygen Flow Rate 1 Documenting provider has reviewed patient's vital signs: yes DS: Data Data Completed and Pending Labs on day of discharge: Labs from last 24 hours 01/28/23 01/28/23 01/27/23 13:20 05:55 20:07 WBC 10.42 RBC 3.93 L Hgb 11.9 L Hct 36.6 L MCV 93 MCH 30 MCHC 33 RDW Coeff of Kevin Plt Count 285 Neut % (Auto) Lymph % (Auto) [place] % (Auto) Eos % (Auto) Baso % (Auto) Neut # (Auto) Lymph # (Auto) [place] # (Auto) Eos # (Auto) Baso # (Auto) Abs Immat Gran (auto) Imm/Tot Granulo (auto) INR 1.22 H VBG pH 7.405 VBG pCO2 48 VBG pO2 39.2 VBG HCO3 30 H Sodium 134 L Potassium 4.6 Chloride 103 Carbon Dioxide 27 Anion Gap 4 L BUN 22 Creatinine 1.0 Estimated Creat Clear 57.97 Estimated GFR 78 Glucose 87 Calcium 7.9 L Magnesium Total Bilirubin 1.1 0.6 Lactate Dehydrogenase 300 H Troponin I NT-Pro-B Natriuret Pep Total Protein 5.4 L Albumin 3.0 L Cholesterol 139 Procalcitonin SARS-CoV-2 (PCR) Influenza Type A (PCR) Influenza Type B (PCR) RSV (PCR) Lab Acknowledgement Test Added 01/27/23 01/27/23 01/27/23 20:07 17:07 16:45 WBC RBC Hgb Hct MCV MCH MCHC RDW Coeff of Kevin Plt Count Neut % (Auto) Lymph % (Auto) [place] % (Auto) Eos % (Auto) Baso % (Auto) Neut # (Auto) Lymph # (Auto) [place] # (Auto) Eos # (Auto) Baso # (Auto) Abs Immat Gran (auto) Imm/Tot Granulo (auto) INR VBG pH VBG pCO2 VBG pO2 VBG HCO3 Sodium Potassium Chloride Carbon Dioxide Anion Gap BUN Creatinine Estimated Creat Clear Estimated GFR Glucose Calcium Magnesium Total Bilirubin Lactate Dehydrogenase Troponin I NT-Pro-B Natriuret Pep 261 Total Protein Albumin Cholesterol Procalcitonin 0.06 SARS-CoV-2 (PCR) Negative SARS-CoV-2 Influenza Type A (PCR) Negative PCR FLU A Influenza Type B (PCR) Negative PCR FLU B RSV (PCR) Negative PCR RSV Lab Acknowledgement Test Added 01/27/23 16:45 WBC 11.34 H RBC 4.03 L Hgb 12.1 L Hct 37.5 MCV 93 MCH 30 MCHC 32 RDW Coeff of Kevin 14.2 Plt Count 284 Neut % (Auto) 70.8 Lymph % (Auto) 16.0 L [place] % (Auto) 10.1 Eos % (Auto) 2.6 Baso % (Auto) 0.1 Neut # (Auto) 8.00 H Lymph # (Auto) 1.80 [place] # (Auto) 1.10 H Eos # (Auto) 0.30 Baso # (Auto) 0.00 Abs Immat Gran (auto) 0.00 Imm/Tot Granulo (auto) 0.4 INR VBG pH VBG pCO2 VBG pO2 VBG HCO3 Sodium 137 Potassium 4.0 Chloride 101 Carbon Dioxide 30 Anion Gap 6 L BUN 20 Creatinine 1.1 Estimated Creat Clear 53.98 Estimated GFR 70 Glucose 84 Calcium 8.0 L Magnesium 2.2 Total Bilirubin Lactate Dehydrogenase Troponin I < 0.01 L NT-Pro-B Natriuret Pep Cancelled Total Protein Albumin Cholesterol Procalcitonin SARS-CoV-2 (PCR) Influenza Type A (PCR) Influenza Type B (PCR) RSV (PCR) Lab Acknowledgement Discharge Plan Discharge Disposition: Home, Self-Care Date of Admission: 01/27/23 19:51 Attending Provider on Discharge: Vinny Justin Consulting Providers: Ammy Tejada Primary Care Provider: Enmanuel Zamora Condition: Improved Anticipated Discharge Date/Time: 01/28/23 15:06 Discharge Medications: Continued aspirin [Adult Aspirin Regimen] 81 mg tablet,delayed release (DR/EC) 81 mg PO QDAY nitroglycerin 0.4 mg tablet, sublingual 0.4 mg sublingual Q5M PRN Rx Instructions: PRN CHEST PAIN prednisone 20 mg tablet 40 mg PO QDAY PRN Hold Instructions: per pt albuterol sulfate 90 mcg/actuation HFA aerosol inhaler 2 puff inhalation Q4-6H PRN (Reason: shortness of breath or wheezing) Qty: 8.5 12RF albuterol sulfate 2.5 mg /3 mL (0.083 %) solution for nebulization 2.5 mg inhalation Q4H PRN (Reason: shortness of breath or wheezing) Qty: 180 12RF Spiriva Respimat 2.5 mcg/actuation mist 2 inh inhalation QDAY Qty: 12 4RF simvastatin 40 mg tablet 40 mg PO .Bedtime Qty: 90 3RF terazosin 10 mg capsule 10 mg PO .Bedtime Qty: 90 3RF fluticasone furoate-vilanterol 100-25 mcg/dose blister with device 1 inh inhalation DAILY Qty: 60 0RF Changed metoprolol succinate 25 mg tablet extended release 24 hr 50 mg PO DAILY Qty: 90 3RF lisinopril 40 mg tablet 20 mg PO DAILY Qty: 90 3RF Discharge Orders: Discharge Order (Routine); Ordered 01/28/23 Ordered By: Vinny Justin Patient Education: Thoracentesis (DC) Additional Instructions: home oxygen follow up next week with Dr Tejada for repeat thoracentesis (removal of fluid in the chest). Activity Level: Activity as Tolerated Discharge Diet: Regular Follow Up Appointments: Enmanuel Zamora MD [Primary Care Provider] - (one week) [facility]: [email or web address] Info Instructions
[2023-01-28 16:11] LABS: Glucose Body Fluid* 37 mg/dL; LDH Body Fluid* 1581 U/L
[2023-01-28 16:12] LABS: Body Fluid Total Protein* 2.7 gm/dL
[2023-01-28 16:13] LABS: Cholesterol Body Fluid* < 50 mg/dL
[2023-01-28 16:40] LABS: Mononuclear WBC Body Fluid* 93 %; Polynuclear WBC Body Fluid* 7 %; RBC, Body Fluid* 15000 Cells/uL; WBC, Body Fluid* 1637 Cells/uL
--- NOTE | 2023-01-28 16:41 | PC.NURSE ---
Nursing Care Hours: [id number] Pt this shift independent in room, alert and oriented. Stable on room air, deep breathing within normal rate. No c/o pain. Dressing on back CDI. Fine crackles noted to LLL, diminished RLL. Removed IV. Went over discharge paperwork with pt and son. No questions from pt. Wheeled out to vehicle in stable condition.
[2023-01-28 16:46] LABS: BF Color Blood Tinged; BF Total Volume* 20
[2023-01-28 16:47] LABS: BF Clarity* Slightly Cloudy
== END 2023-01-28 16:23 | disposition home or self-care (01) ==
LOC: ED 19:01 → MEDSURG 19:52
PROVIDERS: Family Medicine; Physician Assistant; Surgery; Admitting Provider Family Medicine; Emergency Provider Emergency Medicine; PCP Family Medicine; Visit Provider Family Medicine
DX: J90 Pleural effusion, not elsewhere classified (principal); J44.1 Chronic obstructive pulmonary disease with (acute) exacerbation; R09.02 Hypoxemia; R91.8 Other nonspecific abnormal finding of lung field; D72.829 Elevated white blood cell count, unspecified; R00.0 Tachycardia, unspecified; G47.33 Obstructive sleep apnea (adult) (pediatric); E46 Unspecified protein-calorie malnutrition; I12.9 Hypertensive chronic kidney disease with stage 1 through stage 4 chronic kidney disease, or unspecified chronic kidney disease; N18.30 Chronic kidney disease, stage 3 unspecified; E78.5 Hyperlipidemia, unspecified; I25.10 Atherosclerotic heart disease of native coronary artery without angina pectoris; N40.0 Benign prostatic hyperplasia without lower urinary tract symptoms; Z72.0 Tobacco use; R63.4 Abnormal weight loss; Z68.1 Body mass index [BMI] 19.9 or less, adult; F32.A Depression, unspecified; R42 Dizziness and giddiness; Z79.82 Long term (current) use of aspirin; Z98.890 Other specified postprocedural states; Z87.19 Personal history of other diseases of the digestive system; Z90.89 Acquired absence of other organs; Z66 Do not resuscitate
CPT/HCPCS: 32555; 36415; 71045; 71046; 80048; 81445; 82040; 82247; 82465; 82803; 82945; 83615; 83735; 83880; 84145; 84155; 84157; 84311; 84484; 85025; 85027; 85610; 87015; 87070; 87116; 87631; 88112; 88305; 88342; 88360; 89051; 93005; 94640; 96372; 99284; 99285; G0378; A9270; J1650; J7512

== ENCOUNTER 2023-02-01 14:27 | Outpatient (CLI) | payer OTHER, SELFPAY ==
[2023-02-01 14:52] VITALS: BP 109/66; PULSE 108; RESP 18; O2SAT 92
--- NOTE | 2023-02-01 15:20 | CRLHL7_ITS ---
For Patients: As a result of the Cures Act, medical imaging exams and procedure reports are released immediately into your electronic medical record. You may view this report before your referring provider. If you have questions, please contact your health care provider. INDICATION: Post thoracentesis. TECHNIQUE: Chest 1 view(s) COMPARISON: Multiple priors, most recent chest radiograph dated 01/28/2023. FINDINGS: Stable visualized portions of the cardiomediastinal silhouette and pulmonary vasculature. Small to moderate size right pleural effusion. Previously described pulmonary nodules are not well seen radiographically. No definite pneumothorax. No acute chest wall abnormality. IMPRESSION: 1. Small to moderate sized right pleural effusion. No definite pneumothorax. 2. Previously described pulmonary nodules are not well seen radiographically. Dictated by Lori Messina MD @ 02/01/2023 5:29:59 PM (Electronically Signed)
--- NOTE | 2023-02-01 15:55 | P.PCN_ITS ---
Procedure Note Date Seen: 02/01/23 Will [facility] bill your pro fee for this procedure?: Yes Pre-op diagnosis: Right-sided pleural effusion Post-op diagnosis: same Procedure: Right thoracentesis with ultrasound guidance Procedure Description: The patient is a 77-year-old male with a right-sided pleural effusion. This was previously drained 4 days prior, however given the size, it was felt that he would benefit from repeat thoracentesis. He was scheduled for an outpatient thoracentesis and presents today. Of note, he was discharged home on home oxygen. He states that he has felt very short of breath and weak at home. He has not fallen however he lives alone and he has felt very dizzy and is afraid that he might fall if he discharges home again. His vital signs were assessed and while he was stably tachycardic from the 90s to the low 100s. His oxygen saturations were in the low 90s on 1.5 L of nasal cannula and remained so during the procedure. After discussion of the risks and benefits, the patient was placed in a seated position leaning over a table. Ultrasound guidance was used to identify the effusion on the right. Once this was done the site was marked. The area was p repped and draped in the usual sterile fashion. Local anesthetic was used to anesthetize the skin and subcutaneous tissue down to the rib. Once the rib was encountered, the needle was advanced over the top of the rib into the pleural space. This was confirmed by the aspiration of red tinged fluid. A skin desmond was made with an 11 blade. The thoracentesis catheter was advanced into the pleural cavity while aspirating. Once the pleural fluid was aspirated confirming entrance into the chest cavity, the needle was removed and the sheath advanced. 2 L of fluid were then aspirated. At the end of the procedure, the patient had some mild coughing. Specimens were sent for cytology. The ultrasound was used to confirm successful aspiration evidence by significantly reduced remaining fluid. The catheter was then removed, and an occlusive dressing was placed over the skin site. Patient tolerated the procedure well. Estimated blood loss 1 mL Postprocedure chest x-ray revealed no pneumothorax, though pleural effusion was still present. Anesthesia: local Surgeon: Terrell Estimated blood loss (mL): 1 Pathology: specimen obtained, sent to pathology Condition: stable Disposition: no change (Patient has elected to present to the emergency department because, while he currently feels better and again vital signs are stable, he is afraid that he is at risk for falling at home.)
== END 2023-02-01 14:28 | disposition home or self-care (01) ==
PROVIDERS: PCP Family Medicine; Visit Provider Surgery
DX: J90 Pleural effusion, not elsewhere classified (principal); R06.02 Shortness of breath
CPT/HCPCS: 32555; 71045; 88112

== ENCOUNTER 2023-02-01 15:56 | Emergency (ER) | payer OTHER, SELFPAY ==
[2023-02-01] VITALS (17 sets, daily range): BP systolic 94–112; BP diastolic 55–70; PULSE 88–98; RESP 14–18; TEMP 37.3; O2SAT 91–95; BMI 18.2
--- NOTE | 2023-02-01 20:04 | ED_ITS ---
HPI - General Adult General Chief complaint: Unspecified Complaint, Adult Stated complaint: Just has thoracocentis-did bad last time Time Seen by Provider: 02/01/23 20:23 History of Present Illness HPI narrative: patient had 2 liters removed from lungs today. went home and does not feel safe going home today. feeling faint and weak when stands, hard to breath with activity. thinking should stay and both last week Dr. Justin and Dr. Calderón both had suggested this. home concentrator at 1 1/2 liters via nc increased due to hard to breath hx of COPD 77-year-old man presenting to the emergency department with what he describes as being ?gun shy?. He is requesting admission. He is here after waiting nearly 4 hours to be seen in this busy emergency department. Difficult interview. Did have a large pleural effusion presumably related to hilar mass/malignancy and also in the setting of COPD. Was tapped initially 4 days ago of 2 L of fluid. He says that he worsened dramatically 36 hours after this with weakness and hypoxia and is worried about this happening again. By my read of record he was discharged following this tap with 1 L oxygen support. Mr. Diana and son-in-law who accompanies note his oxygen baseline to be approximately 91%. He has been using the 1.5 L on his oxygen concentrator. They are anticipating getting this swapped out of for some tanks tomorrow after contacting the company. Today he was tapped about 5 or 6 hours ago of 2 L. they repeat that he there did not have all drained as there is pulmonary danger in draining too much. Noting that he lives by himself in an apartment. He acknowledges that he feels better since the tap he is breathing easier and oxygenating better begin just worried about this happening again. He is not more weak than he was earlier today. Admittedly overall improved. I ask whether I am understanding everything correctly. And he says that I am not the 1 standing there demonstrating wooziness/weakness while trying to urinate. He has not actually urinated since the tap this afternoon; this is a reference to 3 days ago. He has been recollecting the prior event. Blood pressure today on triage is 94/55. When I am assessing him he is about 105 systolic. He has not had any fever. Does have small cough. Metoprolol was increased due to tachycardia at discharge 4 days ago Reading procedural note from general surgery outpatient received thoracentesis earlier today was drained of 2 L again of fluid. Stable/normal vitals reported but due to anticipated concerns patient present to the emergency department. Had been drained in 2 parts due to large volume of effusion. Related Data Home Medications Medication Instructions Recorded Confirmed aspirin 81 mg tablet,delayed 81 mg PO QDAY 01/13/22 02/01/23 release (Adult Aspirin Regimen) nitroglycerin 0.4 mg sublingual 0.4 mg sublingual Q5M PRN 01/13/22 02/01/23 tablet Previous Rx's Medication Instructions Recorded albuterol sulfate 2.5 mg/3 mL 2.5 mg (3 mL) inhalation Q4H PRN 07/15/22 (0.083 %) solution for nebulization shortness of breath or wheezing #180 mL albuterol sulfate 90 mcg/actuation 2 puff inhalation Q4-6H PRN 07/15/22 aerosol inhaler shortness of breath or wheezing #8.5 grams simvastatin 40 mg tablet 40 mg PO .Bedtime #90 tabs 07/15/22 terazosin 10 mg capsule 10 mg PO .Bedtime #90 caps 07/15/22 tiotropium bromide 2.5 2 inh inhalation QDAY #12 grams 07/15/22 mcg/actuation mist for inhalation (Spiriva Respimat) fluticasone furoate 100 1 inh inhalation DAILY #60 ea 08/25/22 mcg-vilanterol 25 mcg/dose inhalation powder lisinopril 40 mg tablet 20 mg (1/2 x 40 mg) PO DAILY #90 01/28/23 tabs metoprolol succinate 25 mg 50 mg (2 x 25 mg) PO DAILY #90 tabs 01/28/23 tablet,extended release 24 hr Allergies Allergy/AdvReac Type Severity Reaction Status Date / Time bee venom protein (honey bee) Allergy Mild Anaphylaxis Verified 02/01/23 16:35 procaine [From Novocain] Allergy Mild Nausea Verified 02/01/23 16:35 atorvastatin AdvReac Mild Muscle Pain Verified 02/01/23 16:35 Review of Systems Status of ROS: Reports: 6 or more systems reviewed and unremarkable except as noted in History and below [facility] Medical History COPD exacerbation ?J44.1 - Chronic obstructive pulmonary disease with (acute) exacerbation (ICD-10) COPD (chronic obstructive pulmonary disease) ?J44.9 - Chronic obstructive pulmonary disease, unspecified (ICD-10) Chronic kidney disease, stage III (moderate) ?N18.30 - Chronic kidney disease, stage 3 unspecified (ICD-10) Malnutrition ?E46 - Unspecified protein-calorie malnutrition (ICD-10) Cardiomyopathy ?I42.9 - Cardiomyopathy, unspecified (ICD-10) Surgical History S/P right inguinal hernia repair ?Z98.890 - Other specified postprocedural states (ICD-10) ?Z87.19 - Personal history of other diseases of the digestive system (ICD-10) History of tonsillectomy ?Z90.89 - Acquired absence of other organs (ICD-10) Social History Narrative: Patient continues to smoke but 1 pack of cigarettes may last him 2 weeks. Denies drinking alcohol. What is your current living situation?: I presently have a place to live Problems where you live: carbon monoxide detectors missing or not working Problems where you live details: Has carbon monoxide detector, not plugged in. In the past 12 months, utilities in danger of being shut off: no In past 12 months, lack of transportation kept you from medical appts, meetings, work, or getting things needed for daily living: no In the past 12 mos, have been you worried that your food would run out before you had money to buy more?: never true In the past 12 mos, the food you bought just didn't last and you didn't have money to buy more?: never true Highest level of school completed/degree received: 10th grade Smoking Status: Former smoker What tobacco products do you use: cigarettes Smoking packs per day: 2 Smoking cigarettes per day: 40.0 Years smoked: 63 Smoking pack-years: 126.00 Smoking quit date/years: >15 years ago Do you use any of these nicotine containing products: None Second hand tobacco smoke exposure: No How often do you have a drink containing alcohol: never AUDIT-C Alcohol total score: 0 Non-prescribed substance use: denies use Caffeine: Yes (2 cups coffee) How often does anyone, including family, friends and others, physically hurt you : never How often does anyone, including family, friends and others, insult or talk down to you: never How often does anyone, including family, friends and others, threaten you with harm: never How often does anyone, including family, friends and others, scream or curse at you: never Little interest or pleasure in doing things: several days Feeling down, depressed, or hopeless: several days service: No Exam Narrative: Exam Narrative: Is slim, frail-appearing. Pleasant. Brow was furrowed in concern. Is breathing easily. No apparent distress. Nasal cannula oxygen in place at 1.5 L. He is oxygenating 93% during our conversation. Lungs with is diminished but diffuse breath sounds. Heart is in an elevated rate. Regular rhythm. Distant. Is not tachypneic. Const: Vital Signs, click to edit/add: Vital Signs - 24 hr 02/01/23 16:26 02/01/23 20:05 02/01/23 20:15 Temperature 99.1 F Pulse Rate 95 97 Pulse Rate [Pulse Oximeter] 96 Pulse Rate [orthos tatic lying] Pulse Rate [orthos tatic sitting] Pulse Rate [orthos tatic standing] Respiratory Rate 18 Blood Pressure Blood Pressure [Ri ght Upper Arm] 94/55 L Blood Pressure [or thostatic lying] Blood Pressure [or thostatic sitting] Blood Pressure [or thostatic standing ] Pulse Oximetry 92 93 93 Oxygen Delivery Me thod Nasal Cannula Oxygen Flow Rate 02/01/23 20:30 02/01/23 20:44 02/01/23 20:45 Temperature Pulse Rate 96 91 96 Pulse Rate [Pulse Oximeter] Pulse Rate [orthos tatic lying] Pulse Rate [orthos tatic sitting] Pulse Rate [orthos tatic standing] Respiratory Rate Blood Pressure 112/63 Blood Pressure [Ri ght Upper Arm] Blood Pressure [or thostatic lying] Blood Pressure [or thostatic sitting] Blood Pressure [or thostatic standing ] Pulse Oximetry 93 95 95 Oxygen Delivery Me thod Oxygen Flow Rate 02/01/23 20:46 02/01/23 20:47 02/01/23 20:49 Temperature Pulse Rate 96 97 Pulse Rate [Pulse Oximeter] Pulse Rate [orthos tatic lying] Pulse Rate [orthos tatic sitting] Pulse Rate [orthos tatic standing] Respiratory Rate 14 Blood Pressure 110/70 105/66 Blood Pressure [Ri ght Upper Arm] Blood Pressure [or thostatic lying] Blood Pressure [or thostatic sitting] Blood Pressure [or thostatic standing ] Pulse Oximetry 92 92 91 Oxygen Delivery Me thod Nasal Cannula Oxygen Flow Rate 2 02/01/23 20:50 02/01/23 21:05 02/01/23 21:15 Temperature Pulse Rate 93 98 Pulse Rate [Pulse Oximeter] Pulse Rate [orthos tatic lying] 88 Pulse Rate [orthos tatic sitting] 96 Pulse Rate [orthos tatic standing] 97 Respiratory Rate Blood Pressure Blood Pressure [Ri ght Upper Arm] Blood Pressure [or thostatic lying] 112/63 Blood Pressure [or thostatic sitting] 110/70 Blood Pressure [or thostatic standing ] 105/66 Pulse Oximetry 91 94 Oxygen Delivery Me thod Oxygen Flow Rate 02/01/23 21:30 02/01/23 21:45 02/01/23 22:00 Temperature Pulse Rate 89 91 90 Pulse Rate [Pulse Oximeter] Pulse Rate [orthos tatic lying] Pulse Rate [orthos tatic sitting] Pulse Rate [orthos tatic standing] Respiratory Rate Blood Pressure Blood Pressure [Ri ght Upper Arm] Blood Pressure [or thostatic lying] Blood Pressure [or thostatic sitting] Blood Pressure [or thostatic standing ] Pulse Oximetry 94 94 92 Oxygen Delivery Me thod Oxygen Flow Rate 02/01/23 22:17 02/01/23 22:30 02/02/23 02:23 Temperature Pulse Rate 93 92 102 H Pulse Rate [Pulse Oximeter] Pulse Rate [orthos tatic lying] Pulse Rate [orthos tatic sitting] Pulse Rate [orthos tatic standing] Respiratory Rate Blood Pressure Blood Pressure [Ri ght Upper Arm] Blood Pressure [or thostatic lying] Blood Pressure [or thostatic sitting] Blood Pressure [or thostatic standing ] Pulse Oximetry 92 93 86 L Oxygen Delivery Me thod Oxygen Flow Rate 02/02/23 02:30 02/02/23 02:45 02/02/23 03:00 Temperature Pulse Rate 88 87 82 Pulse Rate [Pulse Oximeter] Pulse Rate [orthos tatic lying] Pulse Rate [orthos tatic sitting] Pulse Rate [orthos tatic standing] Respiratory Rate Blood Pressure Blood Pressure [Ri ght Upper Arm] Blood Pressure [or thostatic lying] Blood Pressure [or thostatic sitting] Blood Pressure [or thostatic standing ] Pulse Oximetry 95 95 95 Oxygen Delivery Me thod Oxygen Flow Rate 02/02/23 03:15 02/02/23 03:30 02/02/23 03:45 Temperature Pulse Rate 84 83 82 Pulse Rate [Pulse Oximeter] Pulse Rate [orthos tatic lying] Pulse Rate [orthos tatic sitting] Pulse Rate [orthos tatic standing] Respiratory Rate Blood Pressure Blood Pressure [Ri ght Upper Arm] Blood Pressure [or thostatic lying] Blood Pressure [or thostatic sitting] Blood Pressure [or thostatic standing ] Pulse Oximetry 95 93 93 Oxygen Delivery Me thod Oxygen Flow Rate 02/02/23 04:00 02/02/23 04:15 02/02/23 04:30 Temperature Pulse Rate 91 95 89 Pulse Rate [Pulse Oximeter] Pulse Rate [orthos tatic lying] Pulse Rate [orthos tatic sitting] Pulse Rate [orthos tatic standing] Respiratory Rate Blood Pressure Blood Pressure [Ri ght Upper Arm] Blood Pressure [or thostatic lying] Blood Pressure [or thostatic sitting] Blood Pressure [or thostatic standing ] Pulse Oximetry 94 94 96 Oxygen Delivery Me thod Oxygen Flow Rate 02/02/23 04:45 02/02/23 05:00 02/02/23 05:15 Temperature Pulse Rate 84 83 82 Pulse Rate [Pulse Oximeter] Pulse Rate [orthos tatic lying] Pulse Rate [orthos tatic sitting] Pulse Rate [orthos tatic standing] Respiratory Rate Blood Pressure Blood Pressure [Ri ght Upper Arm] Blood Pressure [or thostatic lying] Blood Pressure [or thostatic sitting] Blood Pressure [or thostatic standing ] Pulse Oximetry 97 97 95 Oxygen Delivery Me thod Oxygen Flow Rate 02/02/23 05:30 02/02/23 05:45 02/02/23 06:00 Temperature Pulse Rate 80 81 83 Pulse Rate [Pulse Oximeter] Pulse Rate [orthos tatic lying] Pulse Rate [orthos tatic sitting] Pulse Rate [orthos tatic standing] Respiratory Rate Blood Pressure Blood Pressure [Ri ght Upper Arm] Blood Pressure [or thostatic lying] Blood Pressure [or thostatic sitting] Blood Pressure [or thostatic standing ] Pulse Oximetry 95 95 93 Oxygen Delivery Me thod Oxygen Flow Rate 02/02/23 06:15 02/02/23 06:30 02/02/23 06:45 Temperature Pulse Rate 85 84 90 Pulse Rate [Pulse Oximeter] Pulse Rate [orthos tatic lying] Pulse Rate [orthos tatic sitting] Pulse Rate [orthos tatic standing] Respiratory Rate Blood Pressure Blood Pressure [Ri ght Upper Arm] Blood Pressure [or thostatic lying] Blood Pressure [or thostatic sitting] Blood Pressure [or thostatic standing ] Pulse Oximetry 91 94 95 Oxygen Delivery Me thod Oxygen Flow Rate 02/02/23 07:00 02/02/23 07:15 02/02/23 07:30 Temperature Pulse Rate 83 87 98 Pulse Rate [Pulse Oximeter] Pulse Rate [orthos tatic lying] Pulse Rate [orthos tatic sitting] Pulse Rate [orthos tatic standing] Respiratory Rate Blood Pressure Blood Pressure [Ri ght Upper Arm] Blood Pressure [or thostatic lying] Blood Pressure [or thostatic sitting] Blood Pressure [or thostatic standing ] Pulse Oximetry 96 96 92 Oxygen Delivery Me thod Oxygen Flow Rate 02/02/23 07:45 02/02/23 08:00 02/02/23 08:19 Temperature Pulse Rate 94 93 100 Pulse Rate [Pulse Oximeter] Pulse Rate [orthos tatic lying] Pulse Rate [orthos tatic sitting] Pulse Rate [orthos tatic standing] Respiratory Rate Blood Pressure Blood Pressure [Ri ght Upper Arm] Blood Pressure [or thostatic lying] Blood Pressure [or thostatic sitting] Blood Pressure [or thostatic standing ] Pulse Oximetry 91 92 87 L Oxygen Delivery Me thod Oxygen Flow Rate 02/02/23 08:21 Temperature Pulse Rate 94 Pulse Rate [Pulse Oximeter] Pulse Rate [orthos tatic lying] Pulse Rate [orthos tatic sitting] Pulse Rate [orthos tatic standing] Respiratory Rate Blood Pressure 120/70 Blood Pressure [Ri ght Upper Arm] Blood Pressure [or thostatic lying] Blood Pressure [or thostatic sitting] Blood Pressure [or thostatic standing ] Pulse Oximetry 91 Oxygen Delivery Me thod Oxygen Flow Rate Documenting provider has reviewed patient's vital signs: yes Course Vital Signs Vital signs: Initial Vital Signs Temperature 99.1 F 02/01/23 16:26 Temperature Source Temporal Artery Scan 02/01/23 16:26 Pulse Rate 96 02/01/23 16:26 Respiratory Rate 18 02/01/23 16:26 Blood Pressure 94/55 L 02/01/23 16:26 Blood Pressure Mean 68 L 02/01/23 16:26 Blood Pressure Position Sitting 02/01/23 16:26 Pulse Oximetry 92 02/01/23 16:26 Oxygen Delivery Method Nasal Cannula 02/01/23 16:26 Vital Signs Temperature 99.1 F 02/01/23 16:26 Pulse Rate 96 02/01/23 16:26 Respiratory Rate 18 02/01/23 16:26 Blood Pressure 94/55 L 02/01/23 16:26 Pulse Oximetry 92 02/01/23 16:26 Oxygen Delivery Method Nasal Cannula 02/01/23 16:26 Temperature 99.1 F 02/01/23 16:26 Pulse Rate 94 02/02/23 08:21 Respiratory Rate 14 02/01/23 20:47 Blood Pressure 120/70 02/02/23 08:21 Pulse Oximetry 91 02/02/23 08:21 Oxygen Delivery Method Nasal Cannula 02/01/23 20:47 Oxygen Flow Rate 2 02/01/23 20:47 Medical Decision Making MDM Narrative Medical decision making narrative: It appears that we would be admitting for anticipated problem. He is disappointed as I am explaining challenges of bed availability. I would like some more objective measurements I say to help with admission. Tried to express my understanding of his concern. Orthostatics are done which are stable. Respirations remain lightly elevated in rate. maintaining oxygenation is low 90s. One-view chest reviewed by me looks similar to earlier today with large left- sided pleural effusion. I return and he is clearly is more upset saying that I was intending to just send him out. Ultimately I am able to let him rest here in the emergency department overnight I think to allay some anxieties. In conversation with son-in-law and Mr. Diana we all can acknowledge this is a difficult situation. Mr. Diana is worried about having to receive regular our weekly taps which I admit to him maybe the case for a time. Reassessing 7:00 a.m.. He has managed to sleep. Has ambulated to the bathroom. He is having some achiness in his right chest he would associate with procedure and he thinks maybe his lung is re-expanding. Appears reassured. Anticipating breakfast. I am anticipating discharge home with family or friend he mentions yet this morning. Discharge Plan Discharge Clinical Impression: Pleural effusion, Situational anxiety, Hypoxia Patient Disposition: Home w/ Parent or Adult Condition: Stable Additional Instructions: Please follow-up with your primary care and surgeon as planned. You are welcome to return any time if you start to feel like things are worsening. Prescriptions: No Action aspirin [Adult Aspirin Regimen] 81 mg tablet,delayed release (DR/EC) 81 mg PO QDAY nitroglycerin 0.4 mg tablet, sublingual 0.4 mg sublingual Q5M PRN Rx Instructions: PRN CHEST PAIN albuterol sulfate 90 mcg/actuation HFA aerosol inhaler 2 puff inhalation Q4-6H PRN (Reason: shortness of breath or wheezing) Qty: 8.5 12RF albuterol sulfate 2.5 mg /3 mL (0.083 %) solution for nebulization 2.5 mg inhalation Q4H PRN (Reason: shortness of breath or wheezing) Qty: 180 12RF Spiriva Respimat 2.5 mcg/actuation mist 2 inh inhalation QDAY Qty: 12 4RF simvastatin 40 mg tablet 40 mg PO .Bedtime Qty: 90 3RF terazosin 10 mg capsule 10 mg PO .Bedtime Qty: 90 3RF fluticasone furoate-vilanterol 100-25 mcg/dose blister with device 1 inh inhalation DAILY Qty: 60 0RF metoprolol succinate 25 mg tablet extended release 24 hr 50 mg PO DAILY Qty: 90 3RF lisinopril 40 mg tablet 20 mg PO DAILY Qty: 90 3RF Follow Up/Referrals: Enmanuel Zamora MD [Primary Care Provider] - Stand Alone Forms: [employer] Info Instructions
--- NOTE | 2023-02-01 20:28 | CRLHL7_ITS ---
For Patients: As a result of the Century Cures Act, medical imaging exams and procedure reports are released immediately into your electronic medical record. You may view this report before your referring provider. If you have questions, please contact your health care provider. INDICATION: Evaluate for pleural effusion TECHNIQUE: Chest 1 view. Permanently recorded images are archived. COMPARISON: Chest radiograph from earlier the same day FINDINGS: Cardiovascular and mediastinum: Unchanged visualized portions of the cardiomediastinal silhouette and pulmonary vasculature. Lungs and pleural spaces: Persistent moderate-sized right pleural effusion. Hyperexpanded lungs. The left lung is clear. No pneumothorax. Bones and soft tissues: No acute or significant interval change. IMPRESSION: Unchanged moderate-sized right pleural effusion. Dictated by Renaldo Gamino MD @ 02/01/2023 9:52:05 PM (Electronically Signed)
[2023-02-02] VITALS (32 sets, daily range): BP systolic 120; BP diastolic 70; PULSE 80–102; O2SAT 86–97
--- NOTE | 2023-02-02 02:18 | ED.NURSE ---
patient up to the bathroom. states that he is feeling okay
== END 2023-02-02 10:05 | disposition home or self-care (01) ==
PROVIDERS: Emergency Provider Family Medicine; PCP Family Medicine
DX: J90 Pleural effusion, not elsewhere classified (principal)
CPT/HCPCS: 71045; 99284

== ENCOUNTER 2023-02-03 20:44 | Inpatient (IN) | payer OTHER, SELFPAY ==
[2023-02-03 21:07] VITALS: BP 118/62; PULSE 122; RESP 28; TEMP 37; O2SAT 90
--- NOTE | 2023-02-03 22:04 | CRLHL7_ITS ---
For Patients: As a result of the Century Cures Act, medical imaging exams and procedure reports are released immediately into your electronic medical record. You may view this report before your referring provider. If you have questions, please contact your health care provider. INDICATION: Shortness of breath, pleural effusion. TECHNIQUE: Multiplanar CT examination of the chest was performed without intravenous contrast. COMPARISON: CT chest 01/22/2023. FINDINGS: Lower neck: Visualized lower neck is unremarkable. Lungs: There is compressive atelectasis of the right lung base. Mild emphysematous changes. There is diffuse interlobular septal thickening, which appears irregularly nodular. There is a consolidative opacity in the right lung base. There is tree-in-bud nodularity involving the bilateral lower lobes. 5 mm subpleural solid pulmonary nodule within the right lower lobe posteriorly (2:89). Airways: The trachea remains patent. There is scattered foci of aspirated debris layering dependently within the trachea. Mild diffuse peribronchial wall thickening. Pleura: Increased size of a moderate right-sided pleural effusion. A large amount of this effusion appears loculated within the minor fissure (4:62). This fluid is simple attenuating in density, measuring approximately 13 Hounsfield units. No left pleural effusion. There is a new small right apical pneumothorax measuring 12 mm (4:48) Cardiovascular: Heart size is normal. Thoracic aorta and pulmonary artery are normal in caliber. Small pericardial effusion. Mediastinum: Evaluation of hilar lymphadenopathy is limited without the use of intravenous contrast. Otherwise, no mediastinal lymphadenopathy. Chest wall: There is increased AP diameter of the thoracic cage, compatible with chronic obstructive pulmonary disease. No axillary lymphadenopathy. Upper abdomen: Complex partially calcified renal lesion within the interpolar region of the left kidney, grossly unchanged since prior CT.. Bones: Degenerative changes of the thoracic spine. No acute osseous abnormalities. No suspicious lytic or blastic lesions.. IMPRESSION: 1. New small right apical pneumothorax. No midline shift of the mediastinal structures. 2. Increased size of a simple appearing moderate right pleural effusion, with loculated fluid within the right minor fissure. There is interlobular septal thickening diffusely throughout the right lung, with suggestion of irregularly nodular septal thickening. The presence of a unilateral pleural effusion with irregularly nodular septal thickening raises concern for a underlying malignancy of unknown origin, with malignant effusion and lymphangitic carcinomatosis not excluded. 3. Bilateral lower lobar tree-in-bud nodularity, which can be seen with a nonspecific infectious/inflammatory bronchiolitis. The right lower lobar consolidation may be due to compressive atelectasis of the lung more up sized pleural effusion, though a superimposed pneumonia should be clinically excluded. Please note that all CT scans at this facility use dose modulation, iterative reconstruction, and/or weight-based dosing when appropriate to reduce radiation dose to as low as reasonably achievable. Dictated by Alex Mckoen MD @ 02/03/2023 11:57:03 PM (Electronically Signed)
--- NOTE | 2023-02-03 22:06 | ED.GENADULT ---
HPI - General Adult General Chief complaint: Weakness Stated complaint: water in lung, high temp, shortness of breath Time Seen by Provider: 02/03/23 21:55 History of Present Illness HPI narrative: This 77-year-old male comes in reporting weakness with fever and shortness of breath. He is carrying a oral thermometer with him and states that he measured some fevers earlier today but currently is afebrile. He has a history of tobacco abuse and has a lung mass with effusions. He had 2 L extracted from his lung last week. He states that he was initially seen here and sent home with prescription for a steroid and a Z-Frandy. He finished these treatments a couple days ago and states that he immediately felt worse the next day. He arrives here with tachycardia and tachypnea. His temperature is normal in oximetry is at 90% on 1.5 L of oxygen. The patient does use oxygen at home. He is able to talk in almost complete sentences. He reports some lightheadedness when getting up to ambulate. Related Data Home Medications Medication Instructions Recorded Confirmed aspirin 81 mg tablet,delayed 81 mg PO QDAY 01/13/22 02/01/23 release (Adult Aspirin Regimen) nitroglycerin 0.4 mg sublingual 0.4 mg sublingual Q5M PRN 01/13/22 02/01/23 tablet Previous Rx's Medication Instructions Recorded albuterol sulfate 2.5 mg/3 mL 2.5 mg (3 mL) inhalation Q4H PRN 07/15/22 (0.083 %) solution for nebulization shortness of breath or wheezing #180 mL albuterol sulfate 90 mcg/actuation 2 puff inhalation Q4-6H PRN 07/15/22 aerosol inhaler shortness of breath or wheezing #8.5 grams simvastatin 40 mg tablet 40 mg PO .Bedtime #90 tabs 07/15/22 terazosin 10 mg capsule 10 mg PO .Bedtime #90 caps 07/15/22 tiotropium bromide 2.5 2 inh inhalation QDAY #12 grams 07/15/22 mcg/actuation mist for inhalation (Spiriva Respimat) fluticasone furoate 100 1 inh inhalation DAILY #60 ea 08/25/22 mcg-vilanterol 25 mcg/dose inhalation powder lisinopril 40 mg tablet 20 mg (1/2 x 40 mg) PO DAILY #90 01/28/23 tabs metoprolol succinate 25 mg 50 mg (2 x 25 mg) PO DAILY #90 tabs 01/28/23 tablet,extended release 24 hr Allergies Allergy/AdvReac Type Severity Reaction Status Date / Time bee venom protein (honey bee) Allergy Mild Anaphylaxis Verified 02/01/23 16:35 procaine [From Novocain] Allergy Mild Nausea Verified 02/01/23 16:35 atorvastatin AdvReac Mild Muscle Pain Verified 02/01/23 16:35 Review of Systems Status of ROS: Reports: 10 or more systems reviewed and unremarkable except as noted in History and below Narrative: Constitutional: No weight gain or loss. He reports fevers but arrives with normal temperature. Eyes: No discharge. No vision changes. HENT: No congestion, no sore throat, no ear pain. Cardiovascular: No chest pain, no palpitations. Respiratory: Cough and shortness of breath. Gastrointestinal: No abdominal pain, no vomiting, no diarrhea. Genitourinary: No dysuria, no hematuria. Musculoskeletal: Normal range of motion. Skin: No rashes, no pruritis. Neurological: No dizziness, weakness, sensory change, speech change. Endo/Heme/Allergies: No bruising or bleeding. No polydipsia. Pysch: no suicidality, no anxiety, no insomnia. All other systems reviewed and are negative. [facility] Medical History COPD exacerbation ?J44.1 - Chronic obstructive pulmonary disease with (acute) exacerbation (ICD-10) COPD (chronic obstructive pulmonary disease) ?J44.9 - Chronic obstructive pulmonary disease, unspecified (ICD-10) Chronic kidney disease, stage III (moderate) ?N18.30 - Chronic kidney disease, stage 3 unspecified (ICD-10) Malnutrition ?E46 - Unspecified protein-calorie malnutrition (ICD-10) Cardiomyopathy ?I42.9 - Cardiomyopathy, unspecified (ICD-10) Surgical History S/P right inguinal hernia repair ?Z98.890 - Other specified postprocedural states (ICD-10) ?Z87.19 - Personal history of other diseases of the digestive system (ICD-10) History of tonsillectomy ?Z90.89 - Acquired absence of other organs (ICD-10) Social History Narrative: Patient continues to smoke but 1 pack of cigarettes may last him 2 weeks. Denies drinking alcohol. What is your current living situation?: I presently have a place to live Problems where you live: carbon monoxide detectors missing or not working Problems where you live details: Has carbon monoxide detector, not plugged in. In the past 12 months, utilities in danger of being shut off: no In past 12 months, lack of transportation kept you from medical appts, meetings, work, or getting things needed for daily living: no In the past 12 mos, have been you worried that your food would run out before you had money to buy more?: never true In the past 12 mos, the food you bought just didn't last and you didn't have money to buy more?: never true Highest level of school completed/degree received: 10th grade Smoking Status: Former smoker What tobacco products do you use: cigarettes Smoking packs per day: 2 Smoking cigarettes per day: 40.0 Years smoked: 63 Smoking pack-years: 126.00 Smoking quit date/years: >15 years ago Do you use any of these nicotine containing products: None Second hand tobacco smoke exposure: No How often do you have a drink containing alcohol: never AUDIT-C Alcohol total score: 0 Non-prescribed substance use: denies use Caffeine: Yes (2 cups coffee) How often does anyone, including family, friends and others, physically hurt you: never How often does anyone, including family, friends and others, insult or talk down to you: never How often does anyone, including family, friends and others, threaten you with harm: never How often does anyone, including family, friends and others, scream or curse at you: never Little interest or pleasure in doing things: several days Feeling down, depressed, or hopeless: several days service: No Exam Narrative: Exam Narrative: Constitutional: Cachectic. No acute distress. HEENT: Normocephalic, atraumatic. Neck: Normal range of motion. Nontender. Supple. Heart: Regular. No murmurs. Tachycardia. Intact distal pulses. Lungs: Clear to auscultation. No chest discomfort. No wheezes, rhonchi, or rales. Abdomen: Normal bowel sounds. Nontender. No rebound tenderness. Genitalia: Deferred. Back: No midline tenderness. Normal range of motion. Extremities: Normal range of motion. No injury. Skin: Intact. No rash. Warm. No erythema or pallor. Neurologic: No altered sensation. No weakness. Alert and oriented. Psychiatric: No suicidality. No anxiety or depression. No insomnia. Nursing notes and vitals signs are reviewed. Const: Vital Signs, click to edit/add: Vital Signs - 24 hr 02/03/23 21:07 Temperature 98.6 F Pulse Rate [Pulse Oximeter] 122 H Respiratory Rate 28 H Blood Pressure [Ri ght Upper Arm] 118/62 Pulse Oximetry 90 Oxygen Delivery Me thod Nasal Cannula Oxygen Flow Rate 1.5 Course Vital Signs Vital signs: Initial Vital Signs Temperature 98.6 F 02/03/23 21:07 Temperature Source Oral 02/03/23 21:07 Pulse Rate 122 H 02/03/23 21:07 Respiratory Rate 28 H 02/03/23 21:07 Blood Pressure 118/62 02/03/23 21:07 Blood Pressure Mean 80 02/03/23 21:07 Blood Pressure Position Sitting 02/03/23 21:07 Pulse Oximetry 90 02/03/23 21:07 Oxygen Delivery Method Nasal Cannula 02/03/23 21:07 Oxygen Flow Rate 1.5 02/03/23 21:07 Vital Signs Temperature 98.6 F 02/03/23 21:07 Pulse Rate 122 H 02/03/23 21:07 Respiratory Rate 28 H 02/03/23 21:07 Blood Pressure 118/62 02/03/23 21:07 Pulse Oximetry 90 02/03/23 21:07 Oxygen Delivery Method Nasal Cannula 02/03/23 21:07 Oxygen Flow Rate 1.5 02/03/23 21:07 Temperature 98.6 F 02/03/23 21:07 Pulse Rate 122 H 02/03/23 21:07 Respiratory Rate 28 H 02/03/23 21:07 Blood Pressure 118/62 02/03/23 21:07 Pulse Oximetry 90 02/03/23 21:07 Oxygen Delivery Method Nasal Cannula 02/03/23 21:07 Oxygen Flow Rate 1.5 02/03/23 21:07 Medical Decision Making MDM Narrative Medical decision making narrative: This patient comes in reporting increased weakness and some episode of lightheadedness. He has recurrent pleural effusions and had a thoracentesis recently with 2 L of fluid extracted. He is on home oxygen and currently here he is on 1.5 L and maintaining oximetry at 90-91%. An IV is established and labs are acquired. His white count returns at around 19,000. His nasal pharyngeal swab it returns positive for COVID. His CRP returns elevated at 16.7. Troponin returns at 0. This patient is positive for COVID but does have a significant white blood cell count. I did administer Rocephin and Zithromax because of his significant white count elevation and the appearance of his chest CT scan. He does have an effusion there on images that are not yet read by radiologist. I did speak to the overnight hospitalist on-call, Dr. King, who agrees to his admission. The patient does have increased creatinine and probably is not a candidate for Paxil of id. Lab Data Labs: Lab Results 02/03/23 02/03/23 02/03/23 Range/Units 22:05 22:06 22:29 WBC 19.44 H (4.50-11.00) K/uL RBC 4.08 L (4.30-5.90) m/uL Hgb 12.3 L (13.5-17.5) gm/dL Hct 37.5 (37.0-53.0) % MCV 92 (80-100) fL MCH 30 (26-34) pg MCHC 33 (32-36) gm/dL RDW Coeff of Kevin 13.6 (11.5-15.5) % Plt Count 290 (140-440) K/uL Neut % (Auto) 83.4 H (42.0-72.0) % Lymph % (Auto) 4.5 L (20-44) % [place] % (Auto) 9.9 (0.0-11.0) % Eos % (Auto) 1.3 (0.0-7.0) % Baso % (Auto) 0.2 (0.0-3.0) % Neut # (Auto) 16.20 H (1.7-7.0) K/uL Lymph # (Auto) 0.90 (0.90-2.90) K/uL [place] # (Auto) 1.90 H (0.00-0.90) K/UL Eos # (Auto) 0.30 (0.00-0.50) K/uL Baso # (Auto) 0.00 (0.00-0.30) K/uL Abs Immat Gran (auto) 0.10 (0.00-0.30) K/uL Imm/Tot Granulo (auto) 0.7 % Sodium 132 L (135-149) mmol/L Potassium 4.3 (3.6-5.1) mmol/L Chloride 104 (96-114) mmol/L Carbon Dioxide 24 (20-32) mmol/L Anion Gap 4 L (7-15) mEq/L BUN 37 H (7-30) mg/dL Creatinine 1.2 (0.5-1.5) mg/dL Estimated GFR 63 ml/min Glucose 104 (60-115) mg/dL Calcium 7.9 L (8.4-10.6) mg/dL C-Reactive Protein 16.7 H (0.5-1.0) mg/dL SARS-CoV-2 (PCR) POSITIVE SARS-CoV-2 A (Negative) Influenza Type A (PCR) Negative PCR FLU A (Negative) Influenza Type B (PCR) Negative PCR FLU B (Negative) RSV (PCR) Negative PCR RSV (Negative) POC Creatinine 1.4 H (0.6-1.3) mg/dl POC Troponin I 0.00 L (0.01-0.04) ng/ml Discharge Plan Discharge Clinical Impression: COVID-19, Pleural effusion Patient Disposition: Admitted As Inpatient Condition: Unchanged Prescriptions: No Action aspirin [Adult Aspirin Regimen] 81 mg tablet,delayed release (DR/EC) 81 mg PO QDAY nitroglycerin 0.4 mg tablet, sublingual 0.4 mg sublingual Q5M PRN Rx Instructions: PRN CHEST PAIN albuterol sulfate 90 mcg/actuation HFA aerosol inhaler 2 puff inhalation Q4-6H PRN (Reason: shortness of breath or wheezing) Qty: 8.5 12RF albuterol sulfate 2.5 mg /3 mL (0.083 %) solution for nebulization 2.5 mg inhalation Q4H PRN (Reason: shortness of breath or wheezing) Qty: 180 12RF Spiriva Respimat 2.5 mcg/actuation mist 2 inh inhalation QDAY Qty: 12 4RF simvastatin 40 mg tablet 40 mg PO .Bedtime Qty: 90 3RF terazosin 10 mg capsule 10 mg PO .Bedtime Qty: 90 3RF fluticasone furoate-vilanterol 100-25 mcg/dose blister with device 1 inh inhalation DAILY Qty: 60 0RF metoprolol succinate 25 mg tablet extended release 24 hr 50 mg PO DAILY Qty: 90 3RF lisinopril 40 mg tablet 20 mg PO DAILY Qty: 90 3RF Follow Up/Referrals: Enmanuel Zamora MD [Primary Care Provider] -
[2023-02-03 22:38] LABS: Creatinine, Point-of-Care* 1.4 mg/dl (0.6-1.3)
[2023-02-03 22:51] VITALS: PULSE 104; O2SAT 92
[2023-02-03 23:00] VITALS: PULSE 107; O2SAT 93
[2023-02-03 23:00] LABS: Chloride* 104 mmol/L (96-114); Potassium* 4.3 mmol/L (3.6-5.1); Sodium* 132 mmol/L (135-149)
[2023-02-03 23:02] LABS: Creatinine* 1.2 mg/dL (0.5-1.5); Estimated Glomerular Filt Rate 63 ml/min
[2023-02-03 23:03] LABS: Anion Gap 4 mEq/L (7-15); Blood Urea Nitrogen* 37 mg/dL (7-30); Carbon Dioxide* 24 mmol/L (20-32); Glucose* 104 mg/dL (60-115)
[2023-02-03 23:04] LABS: Calcium* 7.9 mg/dL (8.4-10.6)
[2023-02-03 23:12] LABS: Basophils Percent Auto 0.2 % (0.0-3.0); Eosinophils Percent Auto 1.3 % (0.0-7.0); Hematocrit 37.5 % (37.0-53.0); Hemoglobin* 12.3 gm/dL (13.5-17.5); Immature Granulocytes Pct Auto 0.7 %; Lymphocytes Percent Auto 4.5 % (20-44); Mean Corpuscular HGB Conc 33 gm/dL (32-36); Mean Corpuscular Hemoglobin 30 pg (26-34); Mean Corpuscular Volume 92 fL (80-100); Monocytes Percent Auto 9.9 % (0.0-11.0); Neutrophils Percent Auto 83.4 % (42.0-72.0); Platelet Count* 290 K/uL (140-440); RDW Coefficient of Variation % 13.6 % (11.5-15.5); Red Blood Count 4.08 m/uL (4.30-5.90); White Blood Count* 19.44 K/uL (4.50-11.00)
[2023-02-03 23:15] LABS: Slide Review Reflex No
[2023-02-03 23:18] LABS: C Reactive Protein* 16.7 mg/dL (0.5-1.0)
[2023-02-03 23:21] LABS: PCR FLU A Negative PCR FLU A (Negative); PCR FLU B Negative PCR FLU B (Negative); PCR RSV Negative PCR RSV (Negative)
[2023-02-03 23:25] LABS: SARS PCR* POSITIVE SARS-CoV-2 (Negative)
[2023-02-03 23:48] VITALS: PULSE 101; O2SAT 89
[2023-02-03] MEDS: cefTRIAXone 1 GM in 0.9 % SODIUM CHLORIDE Mini-bag 100 ML IVPB (23:48)
[2023-02-03 23:58] LABS: Procalcitonin* 0.23 ng/mL (<0.50)
[2023-02-04] VITALS (10 sets, daily range): BP systolic 96–112; BP diastolic 53–84; PULSE 99–126; RESP 20–26; TEMP 36.9–37.3; O2SAT 89–94; BMI 18.4; BMI 18.3
[2023-02-04 00:05] LABS: NT Pro B Type NatriureticPept* 208 pg/mL
[2023-02-04] MEDS: AZITHROMYCIN 100 MG/ML inj 500 MG IVPB (00:31)
--- NOTE | 2023-02-04 00:39 | PC.NURSE ---
1230 pt transported to m/s via gurney with multiple bags of belongings and an O2 concentrator. Pt very weak and unable to transfer byself. Noted pursed lip breathing. 02 1L NC. Pleasant an cooperative. Weight as noted I keep loosing weight I see.
[2023-02-04] MEDS: dexAMETHasone 2 MG TABLET 6 MG PO (01:54)
--- NOTE | 2023-02-04 02:37 | W.PM.TELEH&P ---
Telehealth- H&P: HPI History of Present Illness Date Seen: 02/04/23 Chief complaint: water in lung, high temp, shortness of breath Narrative: Serge Diana is seen as an Interactive Telehealth visit. Serge Diana is a 77 year old male with COPD, extensive smoking history, hypertension, CKD stage III, BPH, suspicious right hilar mass seen on 01/22/2023 CT scan, and recurrent right lung effusion who presented to the ER for assessment of weakness and fever at home. He was admitted here on 01/27 with escalating dyspnea and required thoracentesis for large right-sided effusion with removal of 2 L fluid. Discharged home on 01/28 on oxygen with metoprolol dose increased from 25 mg to 50 mg and lisinopril dose decreased from 40 mg down to 20 mg. Per plan at that time, therapeutic thoracentesis was repeated on 02/01 with an additional 2 L removed. Patient notes significant relief of dyspnea after the first thoracentesis but not much impact after the second and his breathing is fairly baseline, not complaining of increased dyspnea currently. He quit smoking about 2-1/2 months ago. Admits to fever of 101.3 at home, sweats, dizziness lightheadedness, cough and right-sided chest pressure which are not new, some epigastric tightness. He denies nausea, vomiting, diarrhea, dysuria, peripheral edema or skin changes. ER assessment: WBC now 19.4 with CRP 16.7, RSV and influenza were negative buttock COVID-19 PCR positive. BNP 208, procalcitonin 0.23. CT of the chest showed multiple findings again concerning for malignancy, redemonstration of right pleural effusion now with loculated fluid in the right minor fissure and small right apical pneumothorax. Review of Systems Status of ROS: Reports: 10 or more systems reviewed and unremarkable except as noted in History and below [facility] Medical History COPD exacerbation ?J44.1 - Chronic obstructive pulmonary disease with (acute) exacerbation (ICD-10) COPD (chronic obstructive pulmonary disease) ?J44.9 - Chronic obstructive pulmonary disease, unspecified (ICD-10) Chronic kidney disease, stage III (moderate) ?N18.30 - Chronic kidney disease, stage 3 unspecified (ICD-10) Malnutrition ?E46 - Unspecified protein-calorie malnutrition (ICD-10) Cardiomyopathy ?I42.9 - Cardiomyopathy, unspecified (ICD-10) Surgical History S/P right inguinal hernia repair ?Z98.890 - Other specified postprocedural states (ICD-10) ?Z87.19 - Personal history of other diseases of the digestive system (ICD-10) History of tonsillectomy ?Z90.89 - Acquired absence of other organs (ICD-10) Social History Narrative: Patient continues to smoke but 1 pack of cigarettes may last him 2 weeks. Denies drinking alcohol. What is your current living situation?: I presently have a place to live Problems where you live: carbon monoxide detectors missing or not working Problems where you live details: Has carbon monoxide detector, not plugged in. In the past 12 months, utilities in danger of being shut off: no In past 12 months, lack of transportation kept you from medical appts, meetings, work, or getting things needed for daily living: no In the past 12 mos, have been you worried that your food would run out before you had money to buy more?: never true In the past 12 mos, the food you bought just didn't last and you didn't have money to buy more?: never true Highest level of school completed/degree received: 10th grade Smoking Status: Former smoker What tobacco products do you use: cigarettes Smoking packs per day: 2 Smoking cigarettes per day: 40.0 Years smoked: 63 Smoking pack-years: 126.00 Smoking quit date/years: <= 15 years ago Do you use any of these nicotine containing products: None Nicotine containing products detail: quit smoking November 2022 Second hand tobacco smoke exposure: No How often do you have a drink containing alcohol: never AUDIT-C Alcohol total score: 0 Non-prescribed substance use: denies use Caffeine: Yes (2 cups coffee daily) How often does anyone, including family, friends and others, physically hurt you: never How often does anyone, including family, friends and others, insult or talk down to you: never How often does anyone, including family, friends and others, threaten you with harm: never How often does anyone, including family, friends and others, scream or curse at you: never Little interest or pleasure in doing things: several days Feeling down, depressed, or hopeless: several days service: No Meds Home Medications and Allergies Home Medications Medication Instructions Recorded Confirmed Type aspirin 81 mg tablet,delayed 81 mg PO QDAY 01/13/22 02/01/23 History release (Adult Aspirin Regimen) nitroglycerin 0.4 mg sublingual 0.4 mg sublingual Q5M PRN 01/13/22 02/01/23 History tablet Allergies Allergy/AdvReac Type Severity Reaction Status Date / Time bee venom protein (honey bee) Allergy Mild Anaphylaxis Verified 02/01/23 16:35 procaine [From Novocain] Allergy Mild Nausea Verified 02/01/23 16:35 atorvastatin AdvReac Mild Muscle Pain Verified 02/01/23 16:35 Exam Narrative Exam Narrative: Physical Exam GENERAL: vital signs reviewed, elderly appearing male, cachectic habitus, fatigued but in no acute distress HEENT: pupils are equal round and reactive to light, extraocular movements are grossly within normal limits and oral mucosa is moist. NECK: Supple without lymphadenopathy or thyromegaly according to nursing staff examination observation HEART: Regular tachycardia LUNGS: Breath sounds are absent in the right mid to lower lung, otherwise clear, no tachypnea at rest, able to speak at length with periodic need for rest and deep breaths but no distress ABDOMEN: Observation from nurse assisted exam, abdomen appears soft, nontender, and nondistended with Positive bowel sounds noted. EXTREMITIES: Thin, no dependent edema, no erythema or calf tenderness, no cyanotic changes SKIN: Observed warm and dry with color normal NEURO: Alert, oriented, speech is clear, no hearing deficit, no tremors or unilateral deficits on exam with normal testing of motor strength in his arms and legs PSYCH: Somewhat anxious affect, stable mood and cooperative Const Vital Signs, click to edit/add: Vital Signs - 24 hr 02/03/23 21:07 02/03/23 22:51 02/03/23 23:00 Temperature 98.6 F Pulse Rate 104 H 107 H Pulse Rate [Pulse Oximeter] 122 H Respiratory Rate 28 H Blood Pressure [Right Arm] Blood Pressure [Right Upper Arm] 118/62 Pulse Oximetry 90 92 93 Oxygen Delivery Method Nasal Cannula Nasal Cannula Nasal Cannula Oxygen Flow Rate 1.5 1.5 1.5 02/03/23 23:48 02/04/23 00:00 02/04/23 00:05 Temperature 98.4 F Pulse Rate 101 H 99 Pulse Rate [Pulse Oximeter] 106 H Respiratory Rate 26 H Blood Pressure [Right Arm] 101/65 Blood Pressure [Right Upper Arm] Pulse Oximetry 89 90 92 Oxygen Delivery Method Nasal Cannula Nasal Cannula Nasal Cannula Oxygen Flow Rate 1.5 1.5 2 02/04/23 01:26 02/04/23 01:26 Temperature 98.4 F Pulse Rate Pulse Rate [Pulse Oximeter] Respiratory Rate 26 H 26 H Blood Pressure [Right Arm] Blood Pressure [Right Upper Arm] Pulse Oximetry 92 92 Oxygen Delivery Method Nasal Cannula Nasal Cannula Oxygen Flow Rate 2 2 Hospitalist - H&P: Result Labs Labs: Short CBC 02/03/23 Range/Units 22:29 WBC 19.44 H (4.50-11.00) K/uL Hgb 12.3 L (13.5-17.5) gm/dL Hct 37.5 (37.0-53.0) % Plt Count 290 (140-440) K/uL BMP 02/03/23 22:29 Sodium 132 L Potassium 4.3 Chloride 104 Carbon Dioxide 24 BUN 37 H Creatinine 1.2 Glucose 104 Calcium 7.9 L ECG Attestation: I personally reviewed and interpreted this ECG as follows: (Sinus rhythm, ventricular rate 83, QTc 444, borderline criteria for LVH and lateral leads) ECG interpretation date: 02/04/[address] scan - chest: Radiologist's impression: 1. New small right apical pneumothorax. No midline shift of the mediastinal structures. 2. Increased size of a simple appearing moderate right pleural effusion, with loculated fluid within the right minor fissure. There is interlobular septal thickening diffusely throughout the right lung, with suggestion of irregularly nodular septal thickening. The presence of a unilateral pleural effusion with irregularly nodular septal thickening raises concern for a underlying malignancy of unknown origin, with malignant effusion and lymphangitic carcinomatosis not excluded. 3. Bilateral lower lobar tree-in-bud nodularity, which can be seen with a nonspecific infectious/inflammatory bronchiolitis. The right lower lobar consolidation may be due to compressive atelectasis of the lung more up sized pleural effusion, though a superimposed pneumonia should be clinically excluded. Assessment and Plan Assessment and plan (1) COVID-19: Status: Acute (2) Hypoxia: Status: Acute (3) Lung mass: Problem comment: Ongoing evaluation after thoracenteses. Status: Acute (4) Pneumothorax on right: Status: Acute (5) Pleural effusion: Status: Acute (6) Weakness: Status: Acute Plan COVID-19 infection Leukocytosis noted, procalcitonin 0.23. -Given obvious risk factors for worsening respiratory status, begin dexamethasone 6 mg daily along with remdesivir 200 mg now then 100 mg daily to complete 5 total days. -Enoxaparin at DVT prophylaxis dose -Appropriate isolation -Review of vaccination/status Recurrent right pleural effusion Hypoxia, acute on chronic 1.5 L baseline oxygen at home, now requiring 2 to 3 L in the context of persistent right pleural effusion and now COVID infection. -Continue supplemental oxygen and wean as tolerated back to baseline -Incentive spirometry, albuterol inhaler as needed -Repeat thoracentesis could be considered; however, with small right apical pneumothorax and minimal changes in respiratory status after repeat thoracentesis on 02/01, this can likely be assessed daily Lung mass First seen on CT chest 01/18/2023 with right hilar mass and adenopathy increased from scan in November. Again multiple findings consider for malignancy. Cytology results still apparently pending. Patient reports he has not yet been able to follow-up with pulmonology, no biopsy today. Small right apical pneumothorax Possibly associated with recent thoracentesis. -Continuous oxygen, follow-up chest x-ray in the a.m. Generalized weakness -Increase physical activity as possible within isolation -PT/OT assessments when appropriate CKD stage III Listed diagnosis; however, renal function currently shows normal range creatinine and GFR. -No barrier to remdesivir currently, continue to monitor renal function electrolytes, no NSAIDs I have addressed Code Status with Mr. Diana and he does desire NO CODE BLUE. This will be ordered as per his/her wishes. DVT prophylaxis: Enoxaparin due to significant risk of thromboembolic disease with above conditions including COVID-19 infection, lung mass, poor mobility and inactivity. Urgent procedures are not anticipated currently. Telehealth: Statement Statement Telehealth Visit: Today's History and Physical is provided via interactive telehealth by Lalit King DO.? Patient is located at [facility].? Provider is located at [facility].? Nursing staff assisted with the patient's exam. The visit being done today meets criteria for a telehealth visit and the patient or patient?s parent/guardian is aware the visit is a telehealth visit. Camera Start Time: 12:34 Camera End Time: 12:54
--- NOTE | 2023-02-04 04:33 | PC.NURSE ---
Patient admitted to the unit at 0005. Ambulates in room independently but encouraged to utilize call light if he feels dizzy or lightheaded. Patient is A&O and VSS with exception to increased O2 needs. Chronic 1.5L NC use at home but he is currently requiring 2L to maintain sats > 89%. Denies having pain or nausea. Reports SOB with exertion but declines SOB at rest. Patient had x1 episode of diarrhea overnight. PIV in left FA SL C/D/I. Remained afebrile overnight. Received IV Rocephin & IV zithromax upon arrival to room and x1 dose of remdesivir. Patient monitors his own O2 with his oximeter from home- requires re-education on O2 parameters 88-92% with h/o COPD.
[2023-02-04] MEDS: ENOXAPARIN 40 MG/0.4 ML INJ SUBCUT (04:47)
[2023-02-04 07:59] LABS: HCO3 VBG 26 mmol/L (21-28); Lactate* 0.7 mmol/L (0.5-1.9); PCO2 VBG 47 mmHG (40-50); PO2 VBG 28.8 mmHG (25-47); pH VBG 7.353 (7.32-7.43)
[2023-02-04 08:19] LABS: Chloride* 104 mmol/L (96-114); Potassium* 4.9 mmol/L (3.6-5.1); Sodium* 134 mmol/L (135-149)
[2023-02-04 08:21] LABS: INR 1.11 (0.91-1.10)
[2023-02-04 08:23] LABS: Anion Gap 5 mEq/L (7-15); Blood Urea Nitrogen* 38 mg/dL (7-30); Calcium* 7.8 mg/dL (8.4-10.6); Carbon Dioxide* 25 mmol/L (20-32); Glucose* 127 mg/dL (60-115); Magnesium* 2.3 mg/dL (1.5-2.6)
[2023-02-04] MEDS: levoFLOXacin 500 MG TABLET PO (08:25)
[2023-02-04] MEDS: SODIUM CHLORIDE 0.9 % (FLUSH) 10 ML SYRINGE 5 ML IVF ×3 (08:26→21:11)
[2023-02-04 08:36] LABS: C Reactive Protein* 16.6 mg/dL (0.5-1.0); Troponin I* < 0.01 ng/mL (0.01-0.04)
--- NOTE | 2023-02-04 09:00 | CRLHL7_ITS ---
For Patients: As a result of the Century Cures Act, medical imaging exams and procedure reports are released immediately into your electronic medical record. You may view this report before your referring provider. If you have questions, please contact your health care provider. INDICATION: Apical pneumothorax COMPARISON: 02/01/2023, 02/03/2023 TECHNIQUE: 1 view chest radiograph. FINDINGS: Lung volumes are good. Trace lucency over the right lung apex is suspicious for persistent very tiny pneumothorax. There is a moderate to large pleural effusion on the right appears to have increased in volume compared to the previous exam. Right basilar opacification is nonspecific and could be atelectasis. Asymmetric edema in the right upper lobe. Diffuse reticulonodular pattern probably reflects the innumerable nodules seen on chest CT. No pneumomediastinum. Normal cardiomediastinal silhouette. Bones: Normal for age. IMPRESSION: Increased size right pleural effusion. Persistent trace apical right pneumothorax. Dictated by Wendy Waller MD @ 02/04/2023 9:11:58 AM (Electronically Signed)
[2023-02-04 09:01] LABS: Creatinine* 1.2 mg/dL (0.5-1.5); Est. Creatinine Clearance* 46.27; Estimated Glomerular Filt Rate 63 ml/min
--- NOTE | 2023-02-04 10:07 | PM.IMPN1 ---
Progress Note: A&P Assessment and plan (1) COVID-19: Problem details: continue decadron and remdesivir; daily LFTs Status: Acute (2) Pleural effusion: Problem details: cxr 02/04 showing Increased size right pleural effusion. Persistent trace apical right pneumothorax. Has had recurrent thoracentesis in last two weeks Recommendation: Diagnostic and therapeutic thoracentesis; consider pleurx catheter transfer to [address] [place] [address] with IR and Pulm Consult; patient wants to think about hospital transfer. I discussed that this is risk and ill advised. Will add zosyn CT on admission Increased size of a simple appearing moderate right pleural effusion, with loculated fluid within the right minor fissure. There is interlobular septal thickening diffusely throughout the right lung, with suggestion of irregularly nodular septal thickening. The presence of a unilateral pleural effusion with irregularly nodular septal thickening raises concern for a underlying malignancy of unknown origin, with malignant effusion and lymphangitic carcinomatosis not excluded. Status: Acute (3) Lung mass: Problem details: Ongoing evaluation after thoracenteses. Status: Acute (4) HTN (hypertension): Problem details: -hold lisinopril, terazosin, and continue metoprolol Status: Acute (5) Obstructive sleep apnea syndrome: Problem details: -not currently using CPAP Status: Acute (6) Hyperlipidemia: Problem details: -hold statin Status: Acute (7) Atherosclerosis of coronary artery: Problem details: continue aspirin/metoprolol Status: Acute (8) COPD (chronic obstructive pulmonary disease): Problem details: -acute on chronic hypoxia without recent history of hypercapnia -continue supplemental oxygen to maintain saturations 88-92%, continuing to wean as able -continue home inhalers -RT consult for pulmonary support -finished course of azithromycin and prednisone 01/26/2023 -on decadron - Status: Acute (9) Malnutrition: Problem details: Weight loss of 8 kg in 6 months from June 2022 to December 2022. Patient attributes this to poor appetite. Concern for malignancy Status: Acute Subjective Date Seen: 02/04/23 Interval history: patient admitted early this AM please see admitting H&P for details patient continues to endorse SOB denies chest pain mild cough discussed my recommendation for transfer to [facility] or [facility] Patient declined and wants to wait 24-48 hours to see if he improves I told him this is risk as medical condition could deterioate he understands IMPRESSION: Increased size right pleural effusion. Persistent trace apical right pneumothorax. Exam Narrative: Exam Narrative: Gen: no acute distress chronically ill appearing HEENT: NCAT EOMI mmm CV: RRR normal s1 s2 Lungs: diminished breath sounds Abd: Soft,nt, nd Neuro: Alert, oriented, CN grossly intact; nonfocal screening?exam Psych: appropriate affect MSK: decreased muscle mass Skin; Warm, dry no rash on face Const: Vital Signs, click to edit/add: Vital Signs - 24 hr 02/03/23 21:07 02/03/23 22:51 02/03/23 23:00 Temperature 98.6 F Pulse Rate 104 H 107 H Pulse Rate [Pulse Oximeter] 122 H Respiratory Rate 28 H Blood Pressure [Ri ght Arm] Blood Pressure [Ri ght Upper Arm] 118/62 Pulse Oximetry 90 92 93 Oxygen Delivery Me thod Nasal Cannula Nasal Cannula Nasal Cannula Oxygen Flow Rate 1.5 1.5 1.5 02/03/23 23:48 02/04/23 00:00 02/04/23 00:05 Temperature 98.4 F Pulse Rate 101 H 99 Pulse Rate [Pulse Oximeter] 106 H Respiratory Rate 26 H Blood Pressure [Ri ght Arm] 101/65 Blood Pressure [Ri ght Upper Arm] Pulse Oximetry 89 90 92 Oxygen Delivery Me thod Nasal Cannula Nasal Cannula Nasal Cannula Oxygen Flow Rate 1.5 1.5 2 02/04/23 01:26 02/04/23 01:26 02/04/23 07:00 Temperature 98.4 F Pulse Rate Pulse Rate [Pulse Oximeter] Respiratory Rate 26 H 26 H Blood Pressure [Ri ght Arm] Blood Pressure [Ri ght Upper Arm] Pulse Oximetry 92 92 94 Oxygen Delivery Me thod Nasal Cannula Nasal Cannula Oxygen Flow Rate 2 2 02/04/23 07:00 02/04/23 07:00 Temperature 98.7 F Pulse Rate Pulse Rate [Pulse Oximeter] 113 H 113 H Respiratory Rate 22 22 Blood Pressure [Ri ght Arm] 112/84 Blood Pressure [Ri ght Upper Arm] Pulse Oximetry 91 Oxygen Delivery Me thod Nasal Cannula Oxygen Flow Rate 1 Labs Labs: Laboratory Results - last 24 hr 02/03/23 02/03/23 02/03/23 22:05 22:06 22:29 WBC 19.44 H RBC 4.08 L Hgb 12.3 L Hct 37.5 MCV 92 MCH 30 MCHC 33 RDW Coeff of Kevin 13.6 Plt Count 290 Neut % (Auto) 83.4 H Lymph % (Auto) 4.5 L [place] % (Auto) 9.9 Eos % (Auto) 1.3 Baso % (Auto) 0.2 Neut # (Auto) 16.20 H Lymph # (Auto) 0.90 [place] # (Auto) 1.90 H Eos # (Auto) 0.30 Baso # (Auto) 0.00 Abs Immat Gran (auto) 0.10 Imm/Tot Granulo (auto) 0.7 INR VBG pH VBG pCO2 VBG pO2 VBG HCO3 Sodium 132 L Potassium 4.3 Chloride 104 Carbon Dioxide 24 Anion Gap 4 L BUN 37 H Creatinine 1.2 Estimated Creat Clear Estimated GFR 63 Glucose 104 Lactate Calcium 7.9 L Magnesium Troponin I C-Reactive Protein 16.7 H NT-Pro-B Natriuret Pep 208 Procalcitonin 0.23 SARS-CoV-2 (PCR) POSITIVE SARS-CoV-2 A Influenza Type A (PCR) Negative PCR FLU A Influenza Type B (PCR) Negative PCR FLU B RSV (PCR) Negative PCR RSV POC Creatinine 1.4 H POC Troponin I 0.00 L 02/04/23 07:43 WBC RBC Hgb Hct MCV MCH MCHC RDW Coeff of Kevin Plt Count Neut % (Auto) Lymph % (Auto) [place] % (Auto) Eos % (Auto) Baso % (Auto) Neut # (Auto) Lymph # (Auto) [place] # (Auto) Eos # (Auto) Baso # (Auto) Abs Immat Gran (auto) Imm/Tot Granulo (auto) INR 1.11 H VBG pH 7.353 VBG pCO2 47 VBG pO2 28.8 VBG HCO3 26 Sodium 134 L Potassium 4.9 Chloride 104 Carbon Dioxide 25 Anion Gap 5 L BUN 38 H Creatinine 1.2 Estimated Creat Clear 46.27 Estimated GFR 63 Glucose 127 H Lactate 0.7 Calcium 7.8 L Magnesium 2.3 Troponin I < 0.01 L C-Reactive Protein 16.6 H NT-Pro-B Natriuret Pep Procalcitonin SARS-CoV-2 (PCR) Influenza Type A (PCR) Influenza Type B (PCR) RSV (PCR) POC Creatinine POC Troponin I
[2023-02-04] MEDS: Tiotropium Bromide [Spiriva Respimat] 2.5 mcg/actuation mist 2 EACH IH (11:40)
[2023-02-04] MEDS: PIPERACILLIN/TAZOBACTAM 3.375 GM in 0.9 % SODIUM CHLORIDE Mini-bag 100 ML IVPB ×3 (11:40→23:51)
[2023-02-04] MEDS: ASPIRIN 81 MG TABLET EC PO (11:40)
[2023-02-04] MEDS: METOPROLOL SUCCINATE (XL) 25 MG TAB 50 MG PO (11:40)
[2023-02-04] MEDS: ALBUTEROL INHALER 2 PUFF IH (11:42)
[2023-02-04 12:29] LABS: Lactate Sepsis w/Reflex* 2.2 mmol/L (0.5-1.9)
[2023-02-04] MEDS: 0.9 % SODIUM CHLORIDE 250 ml IV (13:28)
--- NOTE | 2023-02-04 16:17 | PC.NURSE ---
Patient is requesting to transfer hospitals. Dr. Mo notified. HR 118, B/P 96/59 aware.
[2023-02-04] MEDS: 0.9 % SODIUM CHLORIDE 250 ml 250 ML IV (17:11)
--- NOTE | 2023-02-04 17:17 | PM.EN ---
Chart Event Note Time Seen by Provider: 17:00 Date Seen: 02/04/23 Chart Event Note: Mr. Diana has decided that he would like to be transferred if possible for tertiary care services not available in our [facility] hospital, including pulmonology, interventional radiology, and oncology. He would like to be transferred to [facility] if possible. I informed him of the difficulty of finding tertiary care beds across the state [facility], and that as such we may not be able to transfer him until some future time and date, depending on what is available. He understands. I will place a call to [facility] for starters. Consider additional tertiary care systems if needed.
[2023-02-04 20:10] LABS: Lactate Sepsis w/Reflex* 1.6 mmol/L (0.5-1.9)
--- NOTE | 2023-02-04 22:10 | PC.NURSE ---
End of Shift: Patient pleasant and cooperative. Temp max 99.1. Heart rate at start of shift 120-130, updated MD, 250 mL bolus given and tele on. Heart rate decreased to low 100s by the end of the shift. Denies pain. 1L NC to keep sats 88-90%, states SOB with activity and at rest. Tolerating regular diet with no nausea. Up independently in room.
[2023-02-05] VITALS (9 sets, daily range): BP systolic 109–130; BP diastolic 63–75; PULSE 90–119; RESP 20; TEMP 36.8–37.2; O2SAT 88–92
[2023-02-05] MEDS: dexAMETHasone 2 MG TABLET 6 MG PO (01:49)
[2023-02-05] MEDS: PIPERACILLIN/TAZOBACTAM 3.375 GM in 0.9 % SODIUM CHLORIDE Mini-bag 100 ML IVPB ×3 (05:31→17:38)
[2023-02-05] MEDS: ENOXAPARIN 40 MG/0.4 ML INJ SUBCUT (05:32)
--- NOTE | 2023-02-05 06:38 | PC.NURSE ---
23-07: pleasant and cooperative. Talkative. Pt remained on 1L O2, sats maintaining >88%, occasional dip to 86% but quickly returns to >88%. Lung sounds dim in the right lobe. Nonproductive cough, encouraging deep breathing exercises. Pt reports nausea with meals and a poor appetite, encouraging small frequent meals, pt agreeable.
--- NOTE | 2023-02-05 07:00 | CRLHL7_ITS ---
For Patients: As a result of the Century Cures Act, medical imaging exams and procedure reports are released immediately into your electronic medical record. You may view this report before your referring provider. If you have questions, please contact your health care provider. INDICATION: follow up pleural effusion TECHNIQUE: Chest 1 view COMPARISON: 02/04/2023 FINDINGS: Tiny right apical pneumothorax is unchanged. Right pleural effusion may be increased. No left-sided pneumothorax. No CHF. Mediastinum similar. Increased atelectasis within the right lung. IMPRESSION: Right pleural effusion appears to have increased. Persistent tiny right apical pneumothorax. Dictated by [place] Ann MD @ 02/05/2023 11:15:27 AM (Electronically Signed)
[2023-02-05 07:21] LABS: HCO3 VBG 24 mmol/L (21-28); PCO2 VBG 40 mmHG (40-50); PO2 VBG 43.3 mmHG (25-47); pH VBG 7.381 (7.32-7.43)
[2023-02-05 07:30] LABS: Hematocrit 34.4 % (37.0-53.0); Hemoglobin* 11.1 gm/dL (13.5-17.5); Immature Granulocytes Pct Auto 0.5 %; Lymphocytes Percent Auto 1.1 % (20-44); Mean Corpuscular HGB Conc 32 gm/dL (32-36); Mean Corpuscular Hemoglobin 30 pg (26-34); Mean Corpuscular Volume 92 fL (80-100); Monocytes Percent Auto 3.5 % (0.0-11.0); Neutrophils Percent Auto 94.9 % (42.0-72.0); Platelet Count* 319 K/uL (140-440); Red Blood Count 3.73 m/uL (4.30-5.90)
[2023-02-05 07:39] LABS: Albumin* 2.7 g/dL (3.3-5.0); Chloride* 105 mmol/L (96-114); Potassium* 4.4 mmol/L (3.6-5.1); Sodium* 131 mmol/L (135-149)
[2023-02-05 07:41] LABS: Creatinine* 1.3 mg/dL (0.5-1.5); Est. Creatinine Clearance* 43.85; Estimated Glomerular Filt Rate 57 ml/min
[2023-02-05 07:42] LABS: Alanine Aminotransferase* 14 U/L (4-50); Alkaline Phosphatase* 71 U/L (40-150); Anion Gap 4 mEq/L (7-15); Aspartate Amino Transferase* 20 U/L (12-35); Bilirubin Total* 0.3 mg/dL (0.1-1.5); Blood Urea Nitrogen* 45 mg/dL (7-30); Calcium* 7.9 mg/dL (8.4-10.6); Carbon Dioxide* 22 mmol/L (20-32); Glucose* 123 mg/dL (60-115); Total Protein* 5.2 g/dL (6.0-8.3)
[2023-02-05 07:55] LABS: Slide Review Reflex Yes; White Blood Count* 29.08 K/uL (4.50-11.00)
[2023-02-05 07:59] LABS: NT Pro B Type NatriureticPept* 274 pg/mL
[2023-02-05 08:18] LABS: Slide Review Acceptable Review (Acceptable)
[2023-02-05] MEDS: ASPIRIN 81 MG TABLET EC PO (09:30)
[2023-02-05] MEDS: Tiotropium Bromide [Spiriva Respimat] 2.5 mcg/actuation mist 2 EACH IH (09:31)
[2023-02-05] MEDS: METOPROLOL SUCCINATE (XL) 25 MG TAB 50 MG PO (09:31)
[2023-02-05] MEDS: SODIUM CHLORIDE 0.9 % (FLUSH) 10 ML SYRINGE 5 ML IVF ×2 (09:32→20:21)
--- NOTE | 2023-02-05 11:35 | PM.IMPN1 ---
Progress Note: A&P Assessment and plan (1) Pleural effusion: Problem details: cxr 02/04 showing Increased size right pleural effusion. Persistent trace apical right pneumothorax. Has had recurrent thoracentesis in last two weeks Recommendation: Diagnostic and therapeutic thoracentesis; consider pleurx catheter transfer to [address] [place] [address] with IR and Pulm Consult; patient wants to think about hospital transfer. I discussed that this is risk and ill advised. Will add zosyn CT on admission Increased size of a simple appearing moderate right pleural effusion, with loculated fluid within the right minor fissure. There is interlobular septal thickening diffusely throughout the right lung, with suggestion of irregularly nodular septal thickening. The presence of a unilateral pleural effusion with irregularly nodular septal thickening raises concern for a underlying malignancy of unknown origin, with malignant effusion and lymphangitic carcinomatosis not excluded. 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 Arrieta Status: Acute (3) COPD (chronic obstructive pulmonary disease): Problem details: -acute on chronic hypoxia without recent history of hypercapnia -continue supplemental oxygen to maintain saturations 88-92%, continuing to wean as able -continue home inhalers -RT consult for pulmonary support -finished course of azithromycin and prednisone 01/26/2023 -on decadron for covid - Status: Acute (4) COVID-19: Problem details: continue decadron and remdesivir; daily LFTs Status: Acute (5) Pleural effusion: Status: Acute (6) Malnutrition: Problem details: Weight loss of 8 kg in 6 months from June 2022 to December 2022. Patient attributes this to poor appetite. Concern for malignancy Status: Acute (7) Lung mass: Problem details: Ongoing evaluation after thoracenteses. Status: Acute (8) HTN (hypertension): Problem details: -hold lisinopril, terazosin, and continue metoprolol Status: Acute (9) Obstructive sleep apnea syndrome: Problem details: -not currently using CPAP Status: Acute (10) Hyperlipidemia: Problem details: -hold statin Status: Acute (11) Atherosclerosis of coronary artery: Problem details: continue aspirin/metoprolol Status: Acute Subjective Date Seen: 02/05/23 Interval history: patient on waitlist at [facility] on 1 liter oxygen denies chest pain lactic acidosis resolved chronic SOB at baseline reviewed results of prior thoracentesis 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 Persistent tiny right apical pneumothorax. Exam Narrative: Exam Narrative: Gen: no acute distress HEENT: NCAT EOMI mmm CV: RRR normal s1 s2 Lungs: crackles at base diminished Abd: Soft,nt, nd Neuro: Alert, oriented, CN grossly intact; nonfocal screening?exam Psych: appropriate affect MSK: decreased muscle mass Skin; Warm, dry no rash on face Const: Vital Signs, click to edit/add: Vital Signs - 24 hr 02/04/23 15:00 02/04/23 15:00 02/04/23 15:00 Temperature 98.4 F Pulse Rate Pulse Rate [Pulse Oximeter] 118 H 118 H Respiratory Rate 22 22 Blood Pressure [Ri ght Arm] 96/59 L Pulse Oximetry 90 90 Oxygen Delivery Me thod Nasal Cannula Oxygen Flow Rate 1 02/04/23 19:00 02/04/23 20:17 02/04/23 23:30 Temperature 99.1 F Pulse Rate 116 H Pulse Rate [Pulse Oximeter] 106 H Respiratory Rate 20 Blood Pressure [Ri ght Arm] 109/66 Pulse Oximetry 89 89 Oxygen Delivery Me thod Nasal Cannula Oxygen Flow Rate 1 02/04/23 23:30 02/04/23 23:30 02/04/23 23:30 Temperature 99.1 F Pulse Rate Pulse Rate [Pulse Oximeter] 103 H 103 H Respiratory Rate 20 20 20 Blood Pressure [Ri ght Arm] 104/63 Pulse Oximetry 89 89 Oxygen Delivery Me thod Nasal Cannula Nasal Cannula Oxygen Flow Rate 1 1 02/04/23 23:33 02/05/23 03:00 02/05/23 07:45 Temperature 98.7 F 98.2 F Pulse Rate 101 H Pulse Rate [Pulse Oximeter] 95 90 Respiratory Rate 20 20 Blood Pressure [Ri ght Arm] 118/75 109/74 Pulse Oximetry 88 90 Oxygen Delivery Me thod Nasal Cannula Nasal Cannula Oxygen Flow Rate 1 1.5 02/05/23 07:45 02/05/23 07:45 Temperature Pulse Rate Pulse Rate [Pulse Oximeter] Respiratory Rate 20 Blood Pressure [Ri ght Arm] Pulse Oximetry 90 90 Oxygen Delivery Me thod Nasal Cannula Oxygen Flow Rate 1.5 Labs Labs: Laboratory Results - last 24 hr 02/04/23 02/04/23 02/04/23 12:15 14:25 20:08 WBC RBC Hgb Hct MCV MCH MCHC RDW Coeff of Kevin Plt Count Neut % (Auto) Lymph % (Auto) [place] % (Auto) Eos % (Auto) Baso % (Auto) Neut # (Auto) Lymph # (Auto) [place] # (Auto) Eos # (Auto) Baso # (Auto) Abs Immat Gran (auto) Imm/Tot Granulo (auto) Diff Slide Review VBG pH VBG pCO2 VBG pO2 VBG HCO3 Sodium Potassium Chloride Carbon Dioxide Anion Gap BUN Creatinine Estimated Creat Clear Estimated GFR Glucose Lactate 2.2 H 2.0 H 1.6 Calcium Total Bilirubin AST ALT Alkaline Phosphatase NT-Pro-B Natriuret Pep Total Protein Albumin Procalcitonin 02/05/23 07:05 WBC 29.08 H* RBC 3.73 L Hgb 11.1 L Hct 34.4 L MCV 92 MCH 30 MCHC 32 RDW Coeff of Kevin 14.0 Plt Count 319 Neut % (Auto) 94.9 H Lymph % (Auto) 1.1 L [place] % (Auto) 3.5 Eos % (Auto) 0.0 Baso % (Auto) 0.0 Neut # (Auto) 27.60 H Lymph # (Auto) 0.30 L [place] # (Auto) 1.00 H Eos # (Auto) 0.00 Baso # (Auto) 0.00 Abs Immat Gran (auto) 0.10 Imm/Tot Granulo (auto) 0.5 Diff Slide Review Acceptable Review VBG pH 7.381 VBG pCO2 40 VBG pO2 43.3 VBG HCO3 24 Sodium 131 L Potassium 4.4 Chloride 105 Carbon Dioxide 22 Anion Gap 4 L BUN 45 H Creatinine 1.3 Estimated Creat Clear 43.85 Estimated GFR 57 Glucose 123 H Lactate Calcium 7.9 L Total Bilirubin 0.3 AST 20 ALT 14 Alkaline Phosphatase 71 NT-Pro-B Natriuret Pep 274 Total Protein 5.2 L Albumin 2.7 L Procalcitonin 0.20
--- NOTE | 2023-02-05 13:14 | REH.OT ---
OT: Spoke with team and patient is independent in room, not presenting with IP OT needs and order had been discontinued previous date. Plan is for patient to transfer to [facility] when bed available.
--- NOTE | 2023-02-05 16:03 | PC.SOCIAL ---
Discharge planning- Phone call with pt's daughter, Keiry, discussing discharge plans. Keiry asked if pt would qualify for short-term rehab. This worker will check with therapy on recommendations and call pt's daughter back. Pt's daughter requests information on [facility] Enh[facility] and [facility] (rehab). Pt's daughter informs that pt's will have surgery this next week Wednesday and will be hospitalized. 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 Pt's daughter is concerned about possible transmission of RSV/Pneumonia to pt's if he returns to apartment. Discharge plan is for pt to discharge Wednesday. This worker will check into options and provide information to pt's daughter. Pt's daughter is hopeful pt can have a short-term stay with more services. Discussed the possibility of pt getting increased services at [facility]. Pt's daughter is interested in finding out. Pt's daughter gives permission to send appropriate medical documents to facilities that pt may discharge to including [facility], [facility], and [facility]. Phone call to Aurora Burger at [facility], voicemail left. Followed up with an e-mail requesting feedback on increased services temporarily. Secure e-mailed requested medical documentation to Magdalena Hines at [facility]. Magdalena requests that pt's family reach out to her to complete application. Confirmed with Utilization Review at [facility] that pt's insurance requires prior authorization and pt's current therapy notes indicate pt should return to prior living situation, so pt's insurance will not prior auth coverage for SNF. Per therapy, confirmed that pt is not in need of any therapy services, therefore, does not qualify for short-term rehab. Phone call to pt's daughter to provide update on therapy recommendations and informed that pt will not qualify for short-term rehab stay. Pt's daughter is interested in [facility]- enhanced assisted living. Provided pt's daughter with contact information to Magdalena Hines to discuss completing an application. Pt's daughter requests that information be sent on pt to Magdalena Hines at [facility]. Secure e-mail sent to Magdalena Hines providing information and informing that pt's family will reach out. Provided update to pt's daughter that messages were left with Aurora at [facility] and this worker will follow up with pt's dutch when information is received. Social work will continue to follow up as needed.
--- NOTE | 2023-02-05 18:01 | PC.NURSE ---
Pt alert and oriented. Pt independent in room. Pt had no complaints of pain. Pt had tachycardia otherwise VSS. Pt had visitors throughout the day. Pt talkative throughout day.
--- NOTE | 2023-02-05 18:47 | PC.NURSE ---
Pt on 1.5 Liters of O2. Per RT keep Pt's saturations 88-92%
--- NOTE | 2023-02-05 19:04 | RESP.RT ---
Please do not wean below his home O2 prescription.
[2023-02-05] MEDS: ACETAMINOPHEN 325 MG TABLET PO (20:20)
[2023-02-06] VITALS (7 sets, daily range): BP systolic 124–132; BP diastolic 63–80; PULSE 93–105; RESP 18–20; TEMP 36.6–36.8; O2SAT 88–98
[2023-02-06] MEDS: PIPERACILLIN/TAZOBACTAM 3.375 GM in 0.9 % SODIUM CHLORIDE Mini-bag 100 ML IVPB ×4 (00:42→18:37)
[2023-02-06] MEDS: 0.9 % SODIUM CHLORIDE 250 ml IV (00:43)
[2023-02-06] MEDS: dexAMETHasone 2 MG TABLET 6 MG PO (02:37)
[2023-02-06] MEDS: SODIUM CHLORIDE NASAL SPRAY 1 SPRAY NOSTRIL-B (04:34)
[2023-02-06] MEDS: ENOXAPARIN 40 MG/0.4 ML INJ SUBCUT (06:10)
[2023-02-06 07:10] LABS: Hematocrit 27.9 % (37.0-53.0); Hemoglobin* 9.3 gm/dL (13.5-17.5); Immature Granulocytes Pct Auto 0.7 %; Mean Corpuscular HGB Conc 33 gm/dL (32-36); Mean Corpuscular Hemoglobin 31 pg (26-34); Mean Corpuscular Volume 92 fL (80-100); Monocytes Percent Auto 4.3 % (0.0-11.0); Platelet Count* 334 K/uL (140-440); RDW Coefficient of Variation % 14.1 % (11.5-15.5); Red Blood Count 3.05 m/uL (4.30-5.90); White Blood Count* 24.93 K/uL (4.50-11.00)
[2023-02-06 07:24] LABS: Albumin* 2.4 g/dL (3.3-5.0); Chloride* 105 mmol/L (96-114); Sodium* 132 mmol/L (135-149)
[2023-02-06 07:25] LABS: Potassium* 4.6 mmol/L (3.6-5.1)
[2023-02-06 07:27] LABS: Alanine Aminotransferase* 14 U/L (4-50); Alkaline Phosphatase* 58 U/L (40-150); Anion Gap 6 mEq/L (7-15); Aspartate Amino Transferase* 21 U/L (12-35); Bilirubin Total* 0.2 mg/dL (0.1-1.5); Blood Urea Nitrogen* 66 mg/dL (7-30); Carbon Dioxide* 21 mmol/L (20-32); Creatinine* 1.3 mg/dL (0.5-1.5); Est. Creatinine Clearance* 44.41; Estimated Glomerular Filt Rate 57 ml/min; Glucose* 104 mg/dL (60-115); Total Protein* 4.8 g/dL (6.0-8.3)
[2023-02-06 07:28] LABS: Calcium* 7.9 mg/dL (8.4-10.6)
[2023-02-06 07:30] LABS: Slide Review Reflex No
[2023-02-06] MEDS: SODIUM CHLORIDE 0.9 % (FLUSH) 10 ML SYRINGE 5 ML IVF (08:45)
[2023-02-06] MEDS: METOPROLOL SUCCINATE (XL) 25 MG TAB 50 MG PO (08:45)
[2023-02-06] MEDS: ASPIRIN 81 MG TABLET EC PO (08:45)
--- NOTE | 2023-02-06 09:28 | PC.NURSE ---
Patient continues on waiting list for transfer to [facility]. [facility] called x2 this shift requesting update on pt condition. Patient pleasant, oriented and cooperative. HR was elevated to 120 last evening. HR 97-106 during the night. Short of breath with exertion. Reported feeling very SOB and having some dizziness after walking back from the bathroom. Patient educated to use call light to ask for assistance when needing to use restroom. O2 88-98% on 1.5 LPM. O2 sats dropped to 83% when speaking to conventional underwriter after returning from bathroom. Given PRN Tylenol for chest discomfort rated 3/10.
[2023-02-06] MEDS: ACETAMINOPHEN 325 MG TABLET PO (12:17)
--- NOTE | 2023-02-06 14:47 | RESP.RT ---
Do not wean below Patient Home Oxygen setting. Patient has Home Oxygen at 1.5 Lpm. BBS with Right lung field diminished, Left lung field with fine crackles, scattered.
--- NOTE | 2023-02-06 15:24 | P.DS_ITS ---
Transfer Discharge Sum: Prov Provider Time Seen by Provider: 13:04 Date Seen: 02/06/23 Date of admission: 02/04/23 00:56 Primary care physician: Enmanuel Zamora MD Consults: 02/04/23 00:56 Consult to Respiratory Therapy [CONS] Routine Comment: Reason(s) for RT Consult:: Consult Comment: Lung mass, COPD, recurrent right pleural effusion, Covid-19 02/04/23 02:02 Consult to Cable Splicer Assistant [CONS] Routine Comment: Reason for Consult:: Discharge Planning Needs 02/04/23 10:20 Consult to Physical Therapy [CONS] Routine Comment: Reason(s) for PT Consult:: Evaluate and Treat Any Restrictions?:: No Restrictions Consult to Cable Splicer Assistant [CONS] Routine Comment: Reason for Consult:: Discharge Planning Needs Attending physician on discharge: Lali Kim Anticipated date of transfer: 02/06/23 Receiving physician/facility: [facility] - Dr. Reese DS: Diagnosis Discharge Diagnosis (1) Pleural effusion: Status: Acute Problem details: cxr 02/04 showing Increased size right pleural effusion. Persistent trace apical right pneumothorax. Has had recurrent thoracentesis in last two weeks Recommendation: Diagnostic and therapeutic thoracentesis; consider pleurx catheter transfer to [address] [place] [address] with IR and Pulm Consult; patient wants to think about hospital transfer. I discussed that this is risk and ill advised. Will add zosyn CT on admission Increased size of a simple appearing moderate right pleural effusion, with loculated fluid within the right minor fissure. There is interlobular septal thickening diffusely throughout the right lung, with suggestion of irregularly nodular septal thickening. The presence of a unilateral pleural effusion with irregularly nodular septal thickening raises concern for a underlying malignancy of unknown origin, with malignant effusion and lymphangitic carcinomatosis not excluded. - not candidate for thoracentesis here at [facility] per Dr. 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 Normal angiogram. Neg chest CT. Small area transient WMA - resolved. Nl myoview 04/19/13. (4) COPD (chronic obstructive pulmonary disease): Status: Acute Problem details: -acute on chronic hypoxia without recent history of hypercapnia -continue supplemental oxygen to maintain saturations 88-92%, continuing to wean as able -continue home inhalers -RT consult for pulmonary support -finished course of azithromycin and prednisone 01/26/2023 -on decadron for covid (5) Weakness: Status: Acute (6) COVID-19: Status: Acute Problem details: - Was not specifically symptomatic. Found to be covid + on readmission 02/04/23 - continue decadron and remdesivir; daily LFTs (7) Pneumothorax on right: Status: Acute Problem details: Trace apical (8) Hyperlipidemia: Status: Chronic Problem details: -hold statin (9) Obstructive sleep apnea syndrome: Status: Chronic Problem details: -not currently using CPAP (10) Tobacco use: Status: Chronic Problem details: -quit smoking in October 2022 has otherwise smoked since the age of 14 (11) HTN (hypertension): Status: Chronic Problem details: -hold lisinopril, terazosin, and continue metoprolol (12) Atherosclerosis of coronary artery: Status: Chronic Problem details: continue aspirin/metoprolol Transfer Discharge Sum: Med Medications Active and Home Medications: Home Medications aspirin 81 mg tablet,delayed release (Adult Aspirin Regimen) 81 mg PO QDAY 01/13/22 [History Confirmed 02/04/23] nitroglycerin 0.4 mg sublingual tablet 0.4 mg sublingual Q5M PRN 01/13/22 [History Confirmed 02/04/23] albuterol sulfate 2.5 mg/3 mL (0.083 %) solution for nebulization 2.5 mg (3 mL) inhalation Q4H PRN shortness of breath or wheezing #180 mL 07/15/22 [Rx Confirmed 02/04/23] albuterol sulfate 90 mcg/actuation aerosol inhaler 2 puff inhalation Q4-6H PRN s hortness of breath or wheezing #8.5 grams 07/15/22 [Rx Confirmed 02/04/23] tiotropium bromide 2.5 mcg/actuation mist for inhalation (Spiriva Respimat) 2 inh inhalation QDAY #12 grams 07/15/22 [Rx Confirmed 02/04/23] fluticasone furoate 100 mcg-vilanterol 25 mcg/dose inhalation powder 1 inh inhalation DAILY #60 ea 08/25/22 [Rx Confirmed 02/04/23] lisinopril 40 mg tablet 20 mg (1/2 x 40 mg) PO DAILY #90 tabs 01/28/23 [Rx Confirmed 02/04/23] metoprolol succinate 25 mg tablet,extended release 24 hr 50 mg (2 x 25 mg) PO DAILY #90 tabs 01/28/23 [Rx Confirmed 02/04/23] simvastatin 40 mg tablet 40 mg PO HS 02/04/23 [History Confirmed 02/04/23] terazosin 10 mg capsule 10 mg PO HS 02/04/23 [History Confirmed 02/04/23] Active Medications Acetaminophen (Acetaminophen 325 Mg Tablet) 650 - 975 mg PO Q6H PRN PRN Reason: pain or fever Last Admin: 02/06/23 12:17 Dose: 975 mg Albuterol (Albuterol Inhaler) 2 puff IH Q4H PRN PRN Reason: Shortness Of Breath Or Wheezing Last Admin: 02/04/23 11:42 Dose: 2 puff Aspirin (Aspirin 81 Mg Tablet Ec) 81 mg PO DAILY [facility] Last Admin: 02/06/23 08:45 Dose: 81 mg Dexamethasone (Dexamethasone 2 Mg Tablet) 6 mg PO Q24H [facility] Last Admin: 02/06/23 02:37 Dose: 6 mg Enoxaparin Sodium (Enoxaparin 40 Mg/0.4 Ml Inj) 40 mg SUBCUT Q24H [facility] Last Admin: 02/06/23 06:10 Dose: 40 mg Remdesivir 100 mg/ Sodium (Chloride) 270 mls @ 270 mls/hr IVPB Q24H [facility] Stop: 02/08/23 11:29 Last Admin: 02/06/23 12:16 Dose: 270 mls/hr Piperacillin Sod/Tazobactam (Sod 3.375 gm/ Sodium Chloride) 100 mls @ 200 mls/hr IVPB Q6H [facility] Last Admin: 02/06/23 13:32 Dose: 200 mls/hr Melatonin (Melatonin 3 Mg Tablet) 3 - 6 mg PO HS PRN Metoprolol Succinate (Metoprolol Succinate (Xl) 25 Mg Tab) 50 mg PO DAILY [facility] Last Admin: 02/06/23 08:45 Dose: 50 mg Fluticasone Furoate- Vilanterol 100-25 Mcg/Dose 1 inhalation IH DAILY [facility] Last Admin: 02/06/23 08:45 Dose: Not Given Tiotropium [place] [ Spiriva Respimat] 2. 5 Mcg/Actuation Mist 2 inhalation IH DAILY [facility] Last Admin: 02/06/23 08:47 Dose: Not Given Ondansetron HCl (Ondansetron 2 Mg/Ml Inj) 4 mg IVP Q4H PRN PRN Reason: Nausea Senna/Docusate Sodium (Sennosides/Docusate Tablet) 1 tab PO DAILY PRN PRN Reason: Constipation Sodium Chloride (Sodium Chloride 0.9 % (Flush) 10 Ml Syringe) 5 ml IVF FLUSHPRN PRN Last Admin: 02/04/23 11:41 Dose: 5 ml Sodium Chloride (Sodium Chloride 0.9 % (Flush) 10 Ml Syringe) 5 ml IVF BID [facility] Last Admin: 02/06/23 08:45 Dose: 5 ml Sodium Chloride (0.9 % Sodium Chloride 250 Ml) 250 ml IV Q24H [facility] Last Admin: 02/06/23 00:43 Dose: 250 ml Sodium Chloride (Sodium Chloride Nasal [place]) 1 spray NOSTRIL-B QID PRN PRN Reason: Dry Nasal Passages Last Admin: 02/06/23 04:34 Dose: 1 spray Transfer Discharge Sum: Hosp Hospital Course Hospital course: This is a 77-year-old male with an extensive smoking history, COPD, hypertension, CKD stage 3, BPH who had a suspicious right hilar mass seen on CT scan 01/22/2023 and recurrent right lung effusion which he had a thoracentesis on 01/27/23. He had removal of 2 L fluid at that time and then as planned, a re peat therapeutic thoracentesis was done on with an additional 2 L removed. He had significant relief of dyspnea after the 1st thoracentesis but not much impact after the 2nd and he has become progressively more dyspneic since then. He has had fevers at home of 101.3, sweats, dizziness, lightheadedness, and cough right-sided chest pressure and epigastric tightness. He had an elevated white count and CRP as well as a positive COVID-19 PCR test. RSV and influenza were negative in the ER. CT scan was again concerning for malignancy and redemonstrated the right pleural effusion now with loculated fluid in the right minor fissure and a small right apical pneumothorax. Consultation with our general surgeon took place, but because the fluid was loculated recommendation was that we not perform a thoracentesis at this hospital. Transfer to a different facility was sought and he was put on a wait list at [facility]. Today a bed became available at [facility]. Patient is transfer there for IR thoracentesis, pulmonology consult, and oncology consult. Time Spent with Patient Time attestation: Total time spent providing and/or coordinating transfer services: 45 minutes. Exam Narrative: Exam Narrative: General: No acute distress. Awake, alert, oriented x3. No pallor. No jaundice. Thin. Oropharynx: Clear. Mucous membranes moist. Cardiovascular: Regular rate and rhythm. No murmurs, gallops, or rubs. Respiratory: Diminished at both bases, especially on the right where hear no breath sounds [facility] up the chest. Rhonchi on left. Abdomen: Bowel sounds present. Soft, nondistended, nontender. Extremities: No pedal edema. Const: Vital Signs, click to edit/add: Vital Signs - 24 hr 02/05/23 15:30 02/05/23 15:30 02/05/23 15:30 Temperature 98.3 F Pulse Rate Pulse Rate [Pulse Oximeter] 115 H Respiratory Rate 20 20 Blood Pressure [Ri t Arm] 122/74 Pulse Oximetry 91 91 91 Oxygen Delivery Me thod Nasal Cannula Nasal Cannula Oxygen Flow Rate 1.5 1.5 02/05/23 19:00 02/05/23 23:00 02/05/23 23:00 Temperature 98.9 F 98.7 F Pulse Rate Pulse Rate [Pulse Oximeter] 119 H 103 H Respiratory Rate 20 20 Blood Pressure [Ri t Arm] 130/75 119/63 Pulse Oximetry 92 88 88 Oxygen Delivery Me thod Nasal Cannula Nasal Cannula Oxygen Flow Rate 1.5 1.5 02/05/23 23:00 02/06/23 02:44 02/06/23 08:42 Temperature 98.1 F Pulse Rate Pulse Rate [Pulse Oximeter] 104 H Respiratory Rate 20 18 Blood Pressure [Ri ght Arm] 126/80 Pulse Oximetry 88 98 89 Oxygen Delivery Me thod Nasal Cannula Nasal Cannula Oxygen Flow Rate 2 1.5 02/06/23 08:42 02/06/23 08:42 02/06/23 09:51 Temperature 97.9 F Pulse Rate 96 Pulse Rate [Pulse Oximeter] 105 H Respiratory Rate 20 Blood Pressure [Ri ght Arm] 124/63 Pulse Oximetry 89 89 Oxygen Delivery Me thod Nasal Cannula Nasal Cannula Oxygen Flow Rate 1.5 1.5 02/06/23 12:13 02/06/23 14:46 02/06/23 14:58 Temperature 98.2 F Pulse Rate Pulse Rate [Pulse Oximeter] 94 Respiratory Rate 20 20 Blood Pressure [Ri ght Arm] 132/68 Pulse Oximetry 90 88 89 Oxygen Delivery Me thod Nasal Cannula Nasal Cannula Oxygen Flow Rate 1.5 1.5 02/06/23 14:58 02/06/23 14:58 Temperature 98.3 F Pulse Rate Pulse Rate [Pulse Oximeter] 97 Respiratory Rate 20 Blood Pressure [Ri ght Arm] 130/74 Pulse Oximetry 89 89 Oxygen Delivery Me thod Nasal Cannula Nasal Cannula Oxygen Flow Rate 1.5 1.5 Transfer Discharge Sum: Data Data Completed and Pending Completed studies during hospitalization: Ordering Physician: Sohail Dutta M.D. Date of Service: 02/03/23 Procedure(s): CT chest [facility] Accession Number(s): [id number] cc: Enmanuel Zamora M.D.; Sohail Dutta M.D.~ For Patients: As a result of the Century Cures Act, medical imaging exams and procedure reports are released immediately into your electronic medical record. You may view this report before your referring provider. If you have questions, please contact your health care provider. INDICATION: Shortness of breath, pleural effusion. TECHNIQUE: Multiplanar CT examination of the chest was performed without intravenous contrast. COMPARISON: CT chest 01/22/2023. FINDINGS: Lower neck: Visualized lower neck is unremarkable. Lungs: There is compressive atelectasis of the right lung base. Mild emphysematous changes. There is diffuse interlobular septal thickening, which appears irregularly nodular. There is a consolidative opacity in the right lung base. There is tree-in-bud nodularity involving the bilateral lower lobes. 5 mm subpleural solid pulmonary nodule within the right lower lobe posteriorly (2:89). Airways: The trachea remains patent. There is scattered foci of aspirated debris layering dependently within the trachea. Mild diffuse peribronchial wall thickening. Pleura: Increased size of a moderate right-sided pleural effusion. A large amount of this effusion appears loculated within the minor fissure (4:62). This fluid is simple attenuating in density, measuring approximately 13 Hounsfield units. No left pleural effusion. There is a new small right apical pneumothorax measuring 12 mm (4:48) Cardiovascular: Heart size is normal. Thoracic aorta and pulmonary artery are normal in caliber. Small pericardial effusion. Mediastinum: Evaluation of hilar lymphadenopathy is limited without the use of intravenous contrast. Otherwise, no mediastinal lymphadenopathy. Chest wall: There is increased AP diameter of the thoracic cage, compatible with chronic obstructive pulmonary disease. No axillary lymphadenopathy. Upper abdomen: Complex partially calcified renal lesion within the interpolar region of the left kidney, grossly unchanged since prior CT.. Bones: Degenerative changes of the thoracic spine. No acute osseous abnormalities. No suspicious lytic or blastic lesions.. IMPRESSION: 1. New small right apical pneumothorax. No midline shift of the mediastinal structures. 2. Increased size of a simple appearing moderate right pleural effusion, with loculated fluid within the right minor fissure. There is interlobular septal thickening diffusely throughout the right lung, with suggestion of irregularly nodular septal thickening. The presence of a unilateral pleural effusion with irregularly nodular septal thickening raises concern for a underlying malignancy of unknown origin, with malignant effusion and lymphangitic carcinomatosis not excluded. 3. Bilateral lower lobar tree-in-bud nodularity, which can be seen with a nonspecific infectious/inflammatory bronchiolitis. The right lower lobar consolidation may be due to compressive atelectasis of the lung more up sized pleural effusion, though a superimposed pneumonia should be clinically excluded. Please note that all CT scans at this facility use dose modulation, iterative reconstruction, and/or weight-based dosing when appropriate to reduce radiation dose to as low as reasonably achievable. Dictated by Alex Mckeon MD @ 02/03/2023 11:57:03 PM (Electronically Signed) Ordering Physician: Lalit King DO Date of Service: 02/04/23 Procedure(s): XR chest 1V portable Accession Number(s): [id number] cc: Enmanuel Zamora M.D.; Lalit Kign DO~ For Patients: As a result of the Cures Act, medical imaging exams and procedure reports are released immediately into your electronic medical record. You may view this report before your referring provider. If you have questions, please contact your health care provider. INDICATION: Apical pneumothorax COMPARISON: 02/01/2023, 02/03/2023 TECHNIQUE: 1 view chest radiograph. FINDINGS: Lung volumes are good. Trace lucency over the right lung apex is suspicious for persistent very tiny pneumothorax. There is a moderate to large pleural effusion on the right appears to have increased in volume compared to the previous exam. Right basilar opacification is nonspecific and could be atelectasis. Asymmetric edema in the right upper lobe. Diffuse reticulonodular pattern probably reflects the innumerable nodules seen on chest CT. No pneumomediastinum. Normal cardiomediastinal silhouette. Bones: Normal for age. IMPRESSION: Increased size right pleural effusion. Persistent trace apical right pneumothorax. Dictated by Wendy Waller MD @ 02/04/2023 9:11:58 AM (Electronically Signed) Ordering Physician: Jerrod Roach M.D. Date of Service: 02/05/23 Procedure(s): XR chest 1V portable Accession Number(s): [id number] cc: Enmanuel Zamora M.D.; Jerrod Roach M.D.~ For Patients: As a result of the Cures Act, medical imaging exams and procedure reports are released immediately into your electronic medical record. You may view this report before your referring provider. If you have questions, please contact your health care provider. INDICATION: follow up pleural effusion TECHNIQUE: Chest 1 view COMPARISON: 02/04/2023 FINDINGS: Tiny right apical pneumothorax is unchanged. Right pleural effusion may be increased. No left-sided pneumothorax. No CHF. Mediastinum similar. Increased atelectasis within the right lung. IMPRESSION: Right pleural effusion appears to have increased. Persistent tiny right apical pneumothorax. Dictated by Indio Ann MD @ 02/05/2023 11:15:27 AM (Electronically Signed) Discharge Plan Discharge Disposition: [facility] Discharge Location: [facility] Date of Admission: 02/04/23 00:56 Attending Provider on Discharge: Lali Kim Primary Care Provider: Enmanuel Zamora Condition: Unchanged Discharge Orders: Transfer of Care to Other Hospital (ORDER); Ordered 02/06/23 Ordered By: Lali Kim Oxygen: Yes Oxygen Delivery Method: Nasal Cannula Oxygen Flow Rate: 1.5 LPM Urinary Catheter: No Services not available here: IR, Pulmonology
--- NOTE | 2023-02-06 18:42 | PC.NURSE ---
Patient will transfer to [facility] this evening. [id number] report given to Nurse Adriana on [address] at [facility].
--- NOTE | 2023-02-06 19:23 | PC.NURSE ---
Pt. transferred to [facility] via [facility] at 1923.
== END 2023-02-06 19:23 | disposition short-term general hospital (02) | DRG 180 ==
LOC: ED 23:41 → MEDSURG 02-04 00:02
PROVIDERS: Family Medicine; Hospitalist; Admitting Provider Emergency Medicine Emergency Medical Services; Emergency Provider Emergency Medicine Emergency Medical Services; PCP Family Medicine; Visit Provider Emergency Medicine Emergency Medical Services
DX: C34.91 Malignant neoplasm of unspecified part of right bronchus or lung (principal); E43 Unspecified severe protein-calorie malnutrition; U07.1 COVID-19; J98.11 Atelectasis; J93.83 Other pneumothorax; Z68.1 Body mass index [BMI] 19.9 or less, adult; I43 Cardiomyopathy in diseases classified elsewhere; J91.0 Malignant pleural effusion; I13.10 Hypertensive heart and chronic kidney disease without heart failure, with stage 1 through stage 4 chronic kidney disease, or unspecified chronic kidney disease; N18.30 Chronic kidney disease, stage 3 unspecified; Z99.81 Dependence on supplemental oxygen; J44.9 Chronic obstructive pulmonary disease, unspecified; Z87.891 Personal history of nicotine dependence; R09.02 Hypoxemia; I25.10 Atherosclerotic heart disease of native coronary artery without angina pectoris; E88.A Wasting disease (syndrome) due to underlying condition; G47.33 Obstructive sleep apnea (adult) (pediatric); E78.5 Hyperlipidemia, unspecified
CPT/HCPCS: 32555; 36415; 71045; 71250; 80048; 80053; 82565; 82803; 83605; 83735; 83880; 84145; 84484; 85025; 85610; 86140; 87040; 87631; 88112; 94761; 97161; 99285; A9270; J0456; J0696; J1650; J2543; J7050

== ENCOUNTER 2023-02-06 19:16 | Outpatient (CLI) | payer OTHER, SELFPAY | END 2023-02-06 19:17 | disposition home or self-care (01) | PROVIDERS: PCP Family Medicine; Visit Provider Family Medicine | DX: J90 Pleural effusion, not elsewhere classified (principal); U07.1 COVID-19; J93.9 Pneumothorax, unspecified | CPT/HCPCS: A0425; A0427 ==

== ENCOUNTER 2023-02-17 06:42 | Emergency (ER) | payer OTHER, SELFPAY ==
--- NOTE | 2023-02-17 07:08 | ED_ITS ---
HPI - General Adult General Time Seen by Provider: 07:08 <Marcial Aguayo MD - Last Filed: 02/22/23 00:15> Date Seen: 02/17/23 <Marcial Aguayo MD - Last Filed: 02/22/23 00:15> Chief complaint: Abdominal Pain <Marcial Aguayo MD - Last Filed: 02/22/23 00:15> Stated complaint: abdominal pain <Marcial Aguayo MD - Last Filed: 02/22/23 00:15> Time Seen by Provider: 02/17/23 07:07 <Marcial Aguayo MD - Last Filed: 02/22/23 00:15> Source: patient, RN notes reviewed and old records reviewed <Marcial Aguayo MD - Last Filed: 02/22/23 00:15> Mode of arrival: ambulatory <Marcial Aguayo MD - Last Filed: 02/22/23 00:15> Limitations: no limitations <Marcial Aguayo MD - Last Filed: 02/22/23 00:15> History of Present Illness HPI narrative: 77-year-old male with history of COPD and multiple emergency department visits in the last couple of weeks presents today with abdominal pain. Patient says he has had intermittent sharp abdominal pain accompanied by dry heaves for the last couple of months but increased in the last couple of days. No emesis, no dark or black stools, denies diarrhea. Patient has lung cancer and COPD, continues to smoke, frequent development of pleural effusions and drainage for this. Denies urinary symptoms, denies fever, denies chest pain. <Marcial Aguayo MD - Last Filed: 02/22/23 00:15> Related Data Home medications: Home Medications Medication Instructions Recorded Confirmed aspirin 81 mg tablet,delayed 81 mg PO QDAY 01/13/22 02/15/23 release (Adult Aspirin Regimen) nitroglycerin 0.4 mg sublingual 0.4 mg sublingual Q5M PRN 01/13/22 02/15/23 tablet simvastatin 40 mg tablet 40 mg PO HS 02/04/23 02/15/23 terazosin 10 mg capsule 10 mg PO HS 02/04/23 02/15/23 epinephrine 0.3 mg/0.3 mL 0.3 mg IM ONCE 02/15/23 02/15/23 injection, auto-injector fluticasone furoate 100 1 inh inhalation QDAY 02/15/23 02/15/23 mcg-vilanterol 25 mcg/dose inhalation powder (Breo Ellipta) Previous Rx's Medication Instructions Recorded albuterol sulfate 2.5 mg/3 mL 2.5 mg (3 mL) inhalation Q4H PRN 07/15/22 (0.083 %) solution for nebulization shortness of breath or wheezing #180 mL albuterol sulfate 90 mcg/actuation 2 puff inhalation Q4-6H PRN 07/15/22 aerosol inhaler shortness of breath or wheezing #8.5 grams tiotropium bromide 2.5 2 inh inhalation QDAY #12 grams 07/15/22 mcg/actuation mist for inhalation (Spiriva Respimat) fluticasone furoate 100 1 inh inhalation DAILY #60 ea 08/25/22 mcg-vilanterol 25 mcg/dose inhalation powder metoprolol succinate 25 mg 50 mg (2 x 25 mg) PO DAILY #90 tabs 01/28/23 tablet,extended release 24 hr lorazepam 1 mg tablet 0.5 - 1 mg (0.5 - 1 x 1 mg) PO BID 02/15/23 PRN anxiety #10 tabs <Marcial Aguayo MD - Last Filed: 02/22/23 00:15> Allergies/adverse reactions: Allergies Allergy/AdvReac Type Severity Reaction Status Date / Time bee venom protein (honey bee) Allergy Mild Anaphylaxis Verified 02/17/23 08:13 procaine [From Novocain] Allergy Mild Nausea Verified 02/17/23 08:13 atorvastatin AdvReac Mild Muscle Pain Verified 02/17/23 08:13 <Marcial Aguayo MD - Last Filed: 02/22/23 00:15> [facility] Medical History: Medical History (Updated 02/17/23 @ 09:40 by Heather Mcdonald MD) COPD (chronic obstructive pulmonary disease) ?J44.9 - Chronic obstructive pulmonary disease, unspecified (ICD-10) COPD exacerbation ?J44.1 - Chronic obstructive pulmonary disease with (acute) exacerbation (ICD-10) Chronic kidney disease, stage III (moderate) ?N18.30 - Chronic kidney disease, stage 3 unspecified (ICD-10) Malnutrition ?E46 - Unspecified protein-calorie malnutrition (ICD-10) Cardiomyopathy ?I42.9 - Cardiomyopathy, unspecified (ICD-10) <Marcial Aguayo MD - Last Filed: 02/22/23 00:15> Surgical History: Surgical History (Updated 02/09/23 @ 00:01 by Papito Oliva) S/P right inguinal hernia repair ?Z98.890 - Other specified postprocedural states (ICD-10) ?Z87.19 - Personal history of other diseases of the digestive system (ICD-10) History of tonsillectomy ?Z90.89 - Acquired absence of other organs (ICD-10) <Marcial Aguayo MD - Last Filed: 02/22/23 00:15> Social History: Social History Narrative: Patient continues to smoke but 1 pack of cigarettes may last him 2 weeks. Denies drinking alcohol. What is your current living situation?: I presently have a place to live Problems where you live: carbon monoxide detectors missing or not working Problems where you live details: Has carbon monoxide detector, not plugged in. In the past 12 months, utilities in danger of being shut off: no In past 12 months, lack of transportation kept you from medical appts, meetings, work, or getting things needed for daily living: no In the past 12 mos, have been you worried that your food would run out before you had money to buy more?: never true In the past 12 mos, the food you bought just didn't last and you didn't have money to buy more?: never true Highest level of school completed/degree received: 10th grade Smoking Status: Former smoker What tobacco products do you use: cigarettes Smoking packs per day: 2 Smoking cigarettes per day: 40.0 Years smoked: 63 Smoking pack-years: 126.00 Smoking quit date/years: <= 15 years ago Do you use any of these nicotine containing products: None Nicotine containing products detail: quit smoking November 2022 Second hand tobacco smoke exposure: No How often do you have a drink containing alcohol: never How often do you have six or more drinks on one occasion: Never AUDIT-C Alcohol total score: 0 Non-prescribed substance use: denies use Caffeine: Yes (2 cups coffee daily) How often does anyone, including family, friends and others, physically hurt you : never How often does anyone, including family, friends and others, insult or talk down to you: never How often does anyone, including family, friends and others, threaten you with harm: never How often does anyone, including family, friends and others, scream or curse at you: never Little interest or pleasure in doing things: not at all Feeling down, depressed, or hopeless: not at all service: No <Marcial Aguayo MD - Last Filed: 02/22/23 00:15> Exam Narrative: Exam Narrative: General: Well-developed and well-nourished, no acute distress Head: Atraumatic and normocephalic Eyes: Pupils are equal reactive, extraocular motions intact, conjunctiva clear ENT: External nose and ears are normal, posterior pharynx without erythema or exudate Neck: No midline cervical tenderness, full spontaneous range of motion the neck, trachea midline, no adenopathy Heart: Regular rate and rhythm no murmurs or thrills Lungs: Clear to auscultation bilaterally without wheezes or crackles Abdomen: Soft, epigastric and periumbilical tenderness, nondistended with active bowel sounds Musculoskeletal: No tenderness, deformity, or edema Neurologic: Awake, alert, and oriented x3, no gross focal neurologic deficits, cranial nerves intact as tested Psych: Mood and affect are appropriate Skin: No rashes <Marcial Aguayo MD - Last Filed: 02/22/23 00:15> Const: Vital Signs, click to edit/add: Vital Signs - 24 hr 02/17/23 07:09 02/17/23 08:30 Temperature 98.7 F Pulse Rate [Pulse Oximeter] 115 H 95 Respiratory Rate 28 H 18 Blood Pressure [Ri ght Upper Arm] 125/78 119/63 Pulse Oximetry 94 98 Oxygen Delivery Me thod Room Air Room Air <Marcial Aguayo MD - Last Filed: 02/22/23 00:15> Vital Signs, click to edit/add: Vital Signs - 24 hr 02/17/23 07:09 02/17/23 08:30 Temperature 98.7 F Pulse Rate [Pulse Oximeter] 115 H 95 Respiratory Rate 28 H 18 Blood Pressure [Ri ght Upper Arm] 125/78 119/63 Pulse Oximetry 94 98 Oxygen Delivery Me thod Room Air Room Air <Heather Mcdonald MD - Last Filed: 02/17/23 09:41> Course Course ED Course: Patient seen and examined, prior records reviewed. Patient presents today with abdominal pain and dry heaves which he says have been going on for several months although has multiple Clinic in emergency department visits during this time when this is not been mentioned. Says it has been worse in last couple days. On exam, patient is tachycardic which is not unusual for him, has epigastric and periumbilical tenderness. Labs ordered along with CT scan of the abdomen and pelvis. Given chronic abdominal pain, anticipate discharge. 8:02 AM sign out to oncoming provider. <Marcial Aguayo MD - Last Filed: 02/22/23 00:15> Reevaluation(s) Time of Reevaluation #1: 09:36 <Heather Mcdonald MD - Last Filed: 02/17/23 09:41> Reevaluation #1: Patient CT report is back. There is nothing acutely on this CT suggestive of active intra-abdominal process. Did review the changes on the CT, will print this CT report to take to his oncology visit this afternoon. He has his 1st oncology visit at 3:00 p.m.. He reportedly did have a PET scan yesterday, hopefully they will get the results from the oncologist today. We did review that there may be abdominal metastases, particularly liver. His pain has subsided, he reports he took Tylenol around 4:00 a.m. but pain is subsiding now. He does not have elevated liver enzymes, can use Tylenol primary for pain control. Will send a copy of his CT report with him to take to the oncologist. When he was discharged from [facility] most recently, he was not sent home with antibiotics, no source of infection was found. Thus, elevated white count likely reflects his cancer process. He is not having any fevers. We discussed symptoms of cancer with his weight loss, fatigue, anorexia. These are all probable symptoms of cancer for him. There to talk to the oncologist about further pain management. Will discharge to home for his outpatient oncology appointment at 3:00 p.m. today. He has no acute condition requiring hospitalization or further intervention at this time. <Heather Mcdonald MD - Last Filed: 02/17/23 09:41> Vital Signs Vital signs: Initial Vital Signs Temperature 98.7 F 02/17/23 07:09 Temperature Source Temporal Artery Scan 02/17/23 07:09 Pulse Rate 115 H 02/17/23 07:09 Respiratory Rate 28 H 02/17/23 07:09 Blood Pressure 125/78 02/17/23 07:09 Blood Pressure Mean 93 02/17/23 07:09 Blood Pressure Position Supine 02/17/23 07:09 Pulse Oximetry 94 02/17/23 07:09 Oxygen Delivery Method Room Air 02/17/23 07:09 Vital Signs Temperature 98.7 F 02/17/23 07:09 Pulse Rate 115 H 02/17/23 07:09 Respiratory Rate 28 H 02/17/23 07:09 Blood Pressure 125/78 02/17/23 07:09 Pulse Oximetry 94 02/17/23 07:09 Oxygen Delivery Method Room Air 02/17/23 07:09 Temperature 98.7 F 02/17/23 07:09 Pulse Rate 95 02/17/23 08:30 Respiratory Rate 18 02/17/23 08:30 Blood Pressure 119/63 02/17/23 08:30 Pulse Oximetry 98 02/17/23 08:30 Oxygen Delivery Method Room Air 02/17/23 08:30 <Marcial Aguayo MD - Last Filed: 02/22/23 00:15> Initial Vital Signs Temperature 98.7 F 02/17/23 07:09 Temperature Source Temporal Artery Scan 02/17/23 07:09 Pulse Rate 115 H 02/17/23 07:09 Respiratory Rate 28 H 02/17/23 07:09 Blood Pressure 125/78 02/17/23 07:09 Blood Pressure Mean 93 02/17/23 07:09 Blood Pressure Position Supine 02/17/23 07:09 Pulse Oximetry 94 02/17/23 07:09 Oxygen Delivery Method Room Air 02/17/23 07:09 Vital Signs Temperature 98.7 F 02/17/23 07:09 Pulse Rate 115 H 02/17/23 07:09 Respiratory Rate 28 H 02/17/23 07:09 Blood Pressure 125/78 02/17/23 07:09 Pulse Oximetry 94 02/17/23 07:09 Oxygen Delivery Method Room Air 02/17/23 07:09 Temperature 98.7 F 02/17/23 07:09 Pulse Rate 95 02/17/23 08:30 Respiratory Rate 18 02/17/23 08:30 Blood Pressure 119/63 02/17/23 08:30 Pulse Oximetry 98 02/17/23 08:30 Oxygen Delivery Method Room Air 02/17/23 08:30 <Heather Mcdonald MD - Last Filed: 02/17/23 09:41> Medical Decision Making Lab Data Lab results reviewed: Yes I reviewed the patient's lab results <Heather Mcdonald MD - Last Filed: 02/17/23 09:41> Labs: Lab Results 02/17/23 Range/Units 07:50 WBC 20.01 H (4.50-11.00) K/uL RBC 3.01 L (4.30-5.90) m/uL Hgb 9.1 L (13.5-17.5) gm/dL Hct 27.9 L (37.0-53.0) % MCV 93 (80-100) fL MCH 30 (26-34) pg MCHC 33 (32-36) gm/dL RDW Coeff of Kevin 13.9 (11.5-15.5) % Plt Count 333 (140-440) K/uL Neut % (Auto) 89.6 H (42.0-72.0) % Lymph % (Auto) 3.1 L (20-44) % Frontier % (Auto) 6.5 (0.0-11.0) % Eos % (Auto) 0.1 (0.0-7.0) % Baso % (Auto) 0.0 (0.0-3.0) % Neut # (Auto) 17.90 H (1.7-7.0) K/uL Lymph # (Auto) 0.60 L (0.90-2.90) K/uL Frontier # (Auto) 1.30 H (0.00-0.90) K/UL Eos # (Auto) 0.00 (0.00-0.50) K/uL Baso # (Auto) 0.00 (0.00-0.30) K/uL Abs Immat Gran (auto) 0.10 (0.00-0.30) K/uL Imm/Tot Granulo (auto) 0.7 % Sodium 128 L (135-149) mmol/L Potassium 4.6 (3.6-5.1) mmol/L Chloride 96 (96-114) mmol/L Carbon Dioxide 27 (20-32) mmol/L Anion Gap 5 L (7-15) mEq/L BUN 44 H (7-30) mg/dL Creatinine 0.9 (0.5-1.5) mg/dL Estimated Creat Clear 52.42 Estimated GFR 89 ml/min Glucose 101 (60-115) mg/dL Calcium 7.6 L (8.4-10.6) mg/dL Magnesium 2.0 (1.5-2.6) mg/dL Total Bilirubin 0.2 (0.1-1.5) mg/dL Direct Bilirubin 0.0 (0.0-0.5) mg/dL AST 28 (12-35) U/L ALT 24 (4-50) U/L Alkaline Phosphatase 81 (40-150) U/L Total Protein 5.0 L (6.0-8.3) g/dL Albumin 2.7 L (3.3-5.0) g/dL Lipase 58 (23-300) U/L <Marcial Aguayo MD - Last Filed: 02/22/23 00:15> Lab Results 02/17/23 Range/Units 07:50 WBC 20.01 H (4.50-11.00) K/uL RBC 3.01 L (4.30-5.90) m/uL Hgb 9.1 L (13.5-17.5) gm/dL Hct 27.9 L (37.0-53.0) % MCV 93 (80-100) fL MCH 30 (26-34) pg MCHC 33 (32-36) gm/dL RDW Coeff of Kevin 13.9 (11.5-15.5) % Plt Count 333 (140-440) K/uL Neut % (Auto) 89.6 H (42.0-72.0) % Lymph % (Auto) 3.1 L (20-44) % Frontier % (Auto) 6.5 (0.0-11.0) % Eos % (Auto) 0.1 (0.0-7.0) % Baso % (Auto) 0.0 (0.0-3.0) % Neut # (Auto) 17.90 H (1.7-7.0) K/uL Lymph # (Auto) 0.60 L (0.90-2.90) K/uL Frontier # (Auto) 1.30 H (0.00-0.90) K/UL Eos # (Auto) 0.00 (0.00-0.50) K/uL Baso # (Auto) 0.00 (0.00-0.30) K/uL Abs Immat Gran (auto) 0.10 (0.00-0.30) K/uL Imm/Tot Granulo (auto) 0.7 % Sodium 128 L (135-149) mmol/L Potassium 4.6 (3.6-5.1) mmol/L Chloride 96 (96-114) mmol/L Carbon Dioxide 27 (20-32) mmol/L Anion Gap 5 L (7-15) mEq/L BUN 44 H (7-30) mg/dL Creatinine 0.9 (0.5-1.5) mg/dL Estimated Creat Clear 52.42 Estimated GFR 89 ml/min Glucose 101 (60-115) mg/dL Calcium 7.6 L (8.4-10.6) mg/dL Magnesium 2.0 (1.5-2.6) mg/dL Total Bilirubin 0.2 (0.1-1.5) mg/dL Direct Bilirubin 0.0 (0.0-0.5) mg/dL AST 28 (12-35) U/L ALT 24 (4-50) U/L Alkaline Phosphatase 81 (40-150) U/L Total Protein 5.0 L (6.0-8.3) g/dL Albumin 2.7 L (3.3-5.0) g/dL Lipase 58 (23-300) U/L <Heather Mcdonald MD - Last Filed: 02/17/23 09:41> Imaging Data CT scan - abdomen: Attestation: I have reviewed the pertinent imaging results. <Heather Briseno MD - Last Filed: 02/17/23 09:41> Radiologist's impression: Patient: EDILBERTO REDDY Facility:[facility] Patient ID:?[id number] Site Patient ID:?[id number]. Site :?[id number] Study:?CT Abdomen/Pelvis W/63CC [id number] 8:12:57 AM Ordering Physician:Emelia Ceja Final Report: INDICATION: Abdominal pain and vomiting with history of lung cancer TECHNIQUE: CT abdomen and pelvis acquired with 63 cc Isovue 370 IV contrast. COMPARISON: PET-CT on 02/16/2023, CT abdomen/pelvis December 10, 2022 FINDINGS: Lower chest: Right-sided PleurX drainage catheter with moderate volume right- sided pleural effusion with some adjacent atelectatic lung. Numerous tiny pulmonary nodules since seen bilaterally, right greater than left. Liver: Several hypodense lesions throughout the liver Gallbladder and bile ducts: Unremarkable. No stones or inflammation. No biliary dilatation. Pancreas: Unremarkable. No mass or inflammation. Spleen: Unremarkable. Normal in size. No masses. Adrenal glands: Unremarkable. No nodules. Kidneys: Perfuse in normal fashion. Predominantly hypodense subcentimeter lesion in the right kidney with thick internal septation, new from prior examination, indeterminate. Stable peripherally calcified left renal lesion measuring approximately 2.2 centimeters. GI tract: No evidence of bowel obstruction or inflammation. Colonic diverticulosis without CT evidence of acute diverticulitis. Moderate volume stool throughout the colon and rectum. Vasculature: Abdominal aorta is normal in caliber. Mesenteric arteries are patent. Lymph nodes: No lymphadenopathy. Peritoneum/Abdominal Wall: Unremarkable. No sign of mass or infiltration. No free air or significant free fluid. Stable calcification in the central abdomen. Pelvis: Prostatomegaly. Bones: No acute fracture or malalignment. Multilevel degenerative changes throughout the spine with compression deformity of L4. IMPRESSION: 1. No CT evidence of an acute process involving the abdomen or pelvis. 2. Moderate volume right-sided pleural effusion with PleurX drainage catheter in place. 3. Numerous tiny bilateral lung nodules, concerning for metastatic lesions. 4. Several hypodensities within the liver, indeterminate, but concerning for metastatic disease. 5. Previously visualized subcentimeter cyst in the right kidney now has a thick internal septation, indeterminate. Please note that all CT scans at this facility use dose modulation, iterative reconstruction, and/or weight-based dosing when appropriate to reduce radiation dose to as low as reasonably achievable. Dictated by Dylan Dhaliwal MD @ 02/17/2023 9:19:13 AM (Electronic Signature) <Heather Mcdonald MD - Last Filed: 02/17/23 09:41> Discharge Plan Discharge Clinical Impression: Lung cancer Qualifiers: Laterality: unspecified laterality Lung location: unspecified part of lung Qualified Code(s): C34.90 - Malignant neoplasm of unspecified part of unspecified bronchus or lung Abdominal pain Qualifiers: Abdominal location: upper abdomen, unspecified Qualified Code(s): R10.10 - Upper abdominal pain, unspecified <Marcial Aguayo MD - Last Filed: 02/22/23 00:15> Patient Disposition: Home, Self-Care <Marcial Aguayo MD - Last Filed: 02/22/23 00:15> Condition: Stable <Marcial Aguayo MD - Last Filed: 02/22/23 00:15> Instructions: Lung Cancer (DC), Abdominal Pain (ED) <Marcial Aguayo MD - Last Filed: 02/22/23 00:15> Additional Instructions: Need to follow-up with oncology as scheduled at 3:00 p.m. today. Bring your CT report with. It is possible that this abdominal pain may be coming from potential liver metastases, need to see with the PET scan results are from the oncologist. Certainly can take Tylenol per bottle directions. Need to discuss pain management with the oncologist today. If at any point your developing increased difficulty breathing, shortness of breath, increasing abdominal pain associated with vomiting or develops fevers with any of these symptoms, do recommend re-evaluation. <Marcial Aguayo MD - Last Filed: 02/22/23 00:15> Activity Level: Activity as Tolerated <Marcial Aguayo MD - Last Filed: 02/22/23 00:15> Activity as Tolerated <Heather Mcdonald MD - Last Filed: 02/17/23 09:41> Prescriptions: No Action aspirin [Adult Aspirin Regimen] 81 mg tablet,delayed release (DR/EC) 81 mg PO QDAY nitroglycerin 0.4 mg tablet, sublingual 0.4 mg sublingual Q5M PRN Rx Instructions: PRN CHEST PAIN epinephrine 0.3 mg/0.3 mL auto-injector 0.3 mg IM ONCE Rx Instructions: as a single dose; may repeat once fluticasone furoate-vilanterol [Breo Ellipta] 100-25 mcg/dose blister with device 1 inh inhalation QDAY lorazepam 1 mg tablet 0.5 - 1 mg PO BID PRN (Reason: anxiety) Qty: 10 0RF albuterol sulfate 90 mcg/actuation HFA aerosol inhaler 2 puff inhalation Q4-6H PRN (Reason: shortness of breath or wheezing) Qty: 8.5 12RF albuterol sulfate 2.5 mg /3 mL (0.083 %) solution for nebulization 2.5 mg inhalation Q4H PRN (Reason: shortness of breath or wheezing) Qty: 180 12RF Spiriva Respimat 2.5 mcg/actuation mist 2 inh inhalation QDAY Qty: 12 4RF fluticasone furoate-vilanterol 100-25 mcg/dose blister with device 1 inh inhalation DAILY Qty: 60 0RF metoprolol succinate 25 mg tablet extended release 24 hr 50 mg PO DAILY Qty: 90 3RF simvastatin 40 mg tablet 40 mg PO HS terazosin 10 mg capsule 10 mg PO HS <Marcial Aguayo MD - Last Filed: 02/22/23 00:15> Follow Up/Referrals: Enmanuel Zamora MD [Primary Care Provider] - <Marcial Aguayo MD - Last Filed: 02/22/23 00:15> Stand Alone Forms: [facility] Info Instructions <Marcial Aguayo MD - Last Filed: 02/22/23 00:15>
[2023-02-17 07:09] VITALS: BP 125/78; PULSE 115; RESP 28; TEMP 37.1; O2SAT 94; BMI 17.4
--- NOTE | 2023-02-17 07:32 | CRLHL7_ITS ---
For Patients: As a result of the Century Cures Act, medical imaging exams and procedure reports are released immediately into your electronic medical record. You may view this report before your referring provider. If you have questions, please contact your health care provider. INDICATION: Abdominal pain and vomiting with history of lung cancer TECHNIQUE: CT abdomen and pelvis acquired with 63 cc Isovue 370 IV contrast. COMPARISON: PET-CT on 02/16/2023, CT abdomen/pelvis December 10, 2022 FINDINGS: Lower chest: Right-sided PleurX drainage catheter with moderate volume right-sided pleural effusion with some adjacent atelectatic lung. Numerous tiny pulmonary nodules since seen bilaterally, right greater than left. Liver: Several hypodense lesions throughout the liver Gallbladder and bile ducts: Unremarkable. No stones or inflammation. No biliary dilatation. Pancreas: Unremarkable. No mass or inflammation. Spleen: Unremarkable. Normal in size. No masses. Adrenal glands: Unremarkable. No nodules. Kidneys: Perfuse in normal fashion. Predominantly hypodense subcentimeter lesion in the right kidney with thick internal septation, new from prior examination, indeterminate. Stable peripherally calcified left renal lesion measuring approximately 2.2 centimeters. GI tract: No evidence of bowel obstruction or inflammation. Colonic diverticulosis without CT evidence of acute diverticulitis. Moderate volume stool throughout the colon and rectum. Vasculature: Abdominal aorta is normal in caliber. Mesenteric arteries are patent. Lymph nodes: No lymphadenopathy. Peritoneum/Abdominal Wall: Unremarkable. No sign of mass or infiltration. No free air or significant free fluid. Stable calcification in the central abdomen. Pelvis: Prostatomegaly. Bones: No acute fracture or malalignment. Multilevel degenerative changes throughout the spine with compression deformity of L4. IMPRESSION: 1. No CT evidence of an acute process involving the abdomen or pelvis. 2. Moderate volume right-sided pleural effusion with PleurX drainage catheter in place. 3. Numerous tiny bilateral lung nodules, concerning for metastatic lesions. 4. Several hypodensities within the liver, indeterminate, but concerning for metastatic disease. 5. Previously visualized subcentimeter cyst in the right kidney now has a thick internal septation, indeterminate. Please note that all CT scans at this facility use dose modulation, iterative reconstruction, and/or weight-based dosing when appropriate to reduce radiation dose to as low as reasonably achievable. Dictated by Dylan Dhaliwal MD @ 02/17/2023 9:19:13 AM (Electronically Signed)
[2023-02-17 08:03] LABS: Eosinophils Percent Auto 0.1 % (0.0-7.0); Hematocrit 27.9 % (37.0-53.0); Hemoglobin* 9.1 gm/dL (13.5-17.5); Immature Granulocytes Pct Auto 0.7 %; Lymphocytes Percent Auto 3.1 % (20-44); Mean Corpuscular HGB Conc 33 gm/dL (32-36); Mean Corpuscular Hemoglobin 30 pg (26-34); Mean Corpuscular Volume 93 fL (80-100); Monocytes Percent Auto 6.5 % (0.0-11.0); Neutrophils Percent Auto 89.6 % (42.0-72.0); Platelet Count* 333 K/uL (140-440); RDW Coefficient of Variation % 13.9 % (11.5-15.5); Red Blood Count 3.01 m/uL (4.30-5.90); White Blood Count* 20.01 K/uL (4.50-11.00)
[2023-02-17 08:07] LABS: Slide Review Reflex No
[2023-02-17 08:30] VITALS: BP 119/63; PULSE 95; RESP 18; O2SAT 98
[2023-02-17 08:30] LABS: Albumin* 2.7 g/dL (3.3-5.0)
[2023-02-17 08:31] LABS: Chloride* 96 mmol/L (96-114); Potassium* 4.6 mmol/L (3.6-5.1); Sodium* 128 mmol/L (135-149)
[2023-02-17 08:33] LABS: Anion Gap 5 mEq/L (7-15); Aspartate Amino Transferase* 28 U/L (12-35); Bilirubin Total* 0.2 mg/dL (0.1-1.5); Blood Urea Nitrogen* 44 mg/dL (7-30); Carbon Dioxide* 27 mmol/L (20-32); Creatinine* 0.9 mg/dL (0.5-1.5); Est. Creatinine Clearance* 52.42; Estimated Glomerular Filt Rate 89 ml/min
[2023-02-17 08:34] LABS: Alanine Aminotransferase* 24 U/L (4-50); Alkaline Phosphatase* 81 U/L (40-150); Calcium* 7.6 mg/dL (8.4-10.6); Glucose* 101 mg/dL (60-115); Lipase* 58 U/L (23-300)
== END 2023-02-17 10:00 | disposition home or self-care (01) ==
PROVIDERS: Emergency Provider Family Medicine; PCP Family Medicine
DX: C34.90 Malignant neoplasm of unspecified part of unspecified bronchus or lung (principal); R10.9 Unspecified abdominal pain
CPT/HCPCS: 36415; 74177; 80048; 80076; 83690; 83735; 85025; 95992; 99284; 99285; Q9967

== ENCOUNTER 2023-02-22 15:49 | Emergency (ER) | payer OTHER, SELFPAY ==
[2023-02-22 16:20] VITALS: BP 93/58; PULSE 115; RESP 16; TEMP 36.6; O2SAT 92; BMI 15.8
[2023-02-22 16:35] VITALS: O2SAT 92
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
== END 2023-02-22 17:01 | disposition home or self-care (01) ==
LOC: ED 16:55
PROVIDERS: Emergency Provider Internal Medicine; PCP Family Medicine
DX: T20.14XA Burn of first degree of nose (septum), initial encounter (principal); Z77.22 Contact with and (suspected) exposure to environmental tobacco smoke (acute) (chronic); Z99.81 Dependence on supplemental oxygen
CPT/HCPCS: 99283